=== PATIENT | male | born 1985 | race Caucasian/White ===

== ENCOUNTER 2019-08-02 08:13 | Outpatient (CLI) | payer BC, SELFPAY ==
[2019-08-02 09:04] LABS: Hemoglobin A1C 5.4 % (<5.7)
[2019-08-02 09:05] LABS: Blood Urea Nitrogen 15 mg/dL (9-20); Calcium 9.1 mg/dL (8.4-10.2); Carbon Dioxide 23 mmol/L (22-30); Chloride 103 mmol/L (98-107); Cholesterol 137 mg/dL (0-200); Estimated Glomerular Filt Rate > 60; Glucose 91 mg/dL (75-110); HDL Direct 35 mg/dL; Sodium 141 mmol/L (137-145); Triglycerides 115 mg/dL (<150)
[2019-08-02 09:16] LABS: LDL Cholesterol Direct 82 mg/dL
--- NOTE | 2019-08-06 23:57 | WPDPFTINT ---
PFT Interpretation PFT Interpretation: DOS: 08/02/2019 REQUESTING: Jett Barroso REASON FOR TESTING: cough PULMONARY FUNCTION TESTS Spirometry: FEV1 96%, normal. FVC 93%, normal. FEV1% is normal 80%. no bronchodilator was given. Lung volumes: Normal total lung capacity and residual volume. Diffusion: DLCO 86%. Flow volume loop: Normal. IMPRESSION: Normal spirometry, lung volumes, diffusion and flow volume loop without bronchodilator. Natalia Genao MD
== END 2019-08-02 08:14 | disposition home or self-care (01) ==
PROVIDERS: Visit Provider Family Medicine
DX: R05 Cough (principal); Z13.1 Encounter for screening for diabetes mellitus; Z13.220 Encounter for screening for lipoid disorders
CPT/HCPCS: 36415; 80048; 80061; 83036; 94375; 94726; 94729

== ENCOUNTER 2019-08-10 17:22 | Emergency (ER) | payer BC, SELFPAY ==
[2019-08-10 17:53] VITALS: BP 125/77; PULSE 72; RESP 18; TEMP 36.3; O2SAT 100
--- NOTE | 2019-08-10 19:20 | ED.DENTAL ---
HPI - Dental/Oral General Chief complaint: Dental/Oral <Han Rose PA-C - Last Filed: 08/10/19 19:33> Stated complaint: toothache <Han Rose PA-C - Last Filed: 08/10/19 19:33> Time Seen by Provider: 08/10/19 17:42 <Han Rose PA-C - Last Filed: 08/10/19 19:33> Source: patient <Han Rose PA-C - Last Filed: 08/10/19 19:33> Mode of arrival: ambulatory <Han Rose PA-C - Last Filed: 08/10/19 19:33> Limitations: no limitations <Han Rose PA-C - Last Filed: 08/10/19 19:33> History of Present Illness HPI Narrative: Patient is a 33-year-old male who presents with right lower dental pain that worsened after biting down on an object today injuring the tooth and has since had moderate aching pain worse with eating patient has been taking [id number] medications with some improvement patient denies any URI symptoms or any fever chills nausea vomiting. <Han Rose PA-C - Last Filed: 08/10/19 19:33> Related Data Allergies/adverse reactions: Allergies Allergy/AdvReac Type Severity Reaction Status Date / Time No Known Allergies Allergy Verified 08/10/19 18:05 <Han Rose PA-C - Last Filed: 08/10/19 19:33> Review of Systems Review of Systems: Narrative: CONSTITUTIONAL: Denies fever, chills, or sweats. EYES: Denies redness, or discharge. ENT: Denies rhinorrhea, congestion, sore throat RESPIRATORY: Denies cough GASTROINTESTINAL: Denies nausea, vomiting GENITOURINARY: Denies dysuria or hematuria. NEUROLOGIC: Denies headache PSYCHIATRIC: Denies anxiety or depression. <Han Rose PA-C - Last Filed: 08/10/19 19:33> [facility] Social History Social History: Social History Gender identity (if verbalized by the patient): Male <STEPHY Casper Last Filed: 08/10/19 19:33> Exam Narrative: Exam Narrative: GENERAL: Well-appearing, well-nourished, and in no acute distress. HEAD: Normocephalic, atraumatic. EYES: PERRLA and EOMI. ENT: Nares clear, no rhinorrhea or epistaxis. Mucous membranes moist. Oropharynx without tonsillar hypertrophy exudate or other lesions. Patient with dental decay of the right lower posterior molar there is no erythema fluctuance or swelling NECK: Supple. No adenopathy or masses. CHEST: Clear to auscultation. No respiratory distress. No wheezes rales or rhonchi HEART: Regular rate and rhythm. No murmur heard. EXTREMITIES: Normal range of motion. No edema. SKIN: Warm, dry, no rash. NEURO: No focal deficits. Alert and oriented x3. PSYCH: Normal mood and affect. <STEPHY Casper Last Filed: 08/10/19 19:33> Course Course Emergency Course: Patient in the room in no distress aware of case findings treatment plan and diagnosis agreeing to follow-up as directed <STEPHY Casper Last Filed: 08/10/19 19:33> Vital Signs Vital signs: Vital Signs Temperature 97.4 F L 08/10/19 17:53 Pulse Rate 72 08/10/19 17:53 Respiratory Rate 18 08/10/19 17:53 Blood Pressure 125/77 08/10/19 17:53 Pulse Oximetry 100 08/10/19 17:53 Temperature 97.4 F L 08/10/19 17:53 Pulse Rate 72 08/10/19 17:53 Respiratory Rate 18 08/10/19 17:53 Blood Pressure 125/77 08/10/19 17:53 Pulse Oximetry 100 08/10/19 17:53 <STEPHY Casper Last Filed: 08/10/19 19:33> Vital Signs Temperature 97.4 F L 08/10/19 17:53 Pulse Rate 72 08/10/19 17:53 Respiratory Rate 18 08/10/19 17:53 Blood Pressure 125/77 08/10/19 17:53 Pulse Oximetry 100 08/10/19 17:53 Temperature 97.4 F L 08/10/19 17:53 Pulse Rate 72 08/10/19 17:53 Respiratory Rate 18 08/10/19 17:53 Blood Pressure 125/77 08/10/19 17:53 Pulse Oximetry 100 08/10/19 17:53 <Karoline Zuñiga MD - Last Filed: 08/10/19 23:55> MDM - Dental/Oral MDM Narrative Medical decision making narrative: Hien
== END 2019-08-10 19:45 | disposition home or self-care (01) ==
PROVIDERS: Emergency Provider General Practice; PCP Family Medicine
DX: K08.89 Other specified disorders of teeth and supporting structures (principal)
CPT/HCPCS: 99283; A9270

== ENCOUNTER 2019-10-17 13:28 | Emergency (ER) | payer BC, SELFPAY ==
--- NOTE | ~2019-10-17 | XR_ITS ---
EXAMINATION: XR shoulder LT min 2V DATE: 10/17/2019 14:07 INDICATION: Left shoulder pain post straining injury TECHNIQUE: AP internally and externally rotated, AP oblique externally rotated and axillary views of the left shoulder were obtained. COMPARISON: None FINDINGS: Normal alignment. No fracture. Glenohumeral joint is normal. Acromioclavicular joint is normal. Soft tissues are unremarkable. IMPRESSION: Negative left shoulder radiographs. Reviewed, dictated and finalized at location A.
[2019-10-17 13:31] VITALS: BP 121/72; PULSE 63; RESP 16; TEMP 36.4; O2SAT 95
--- NOTE | 2019-10-17 13:45 | ED.UPPEXIN ---
HPI - Extremity Injury (Upper) General Chief Complaint: Extremity Injury, Upper Stated Complaint: left shoulder pain Time Seen by Provider: 10/17/19 13:41 Source: patient Mode of arrival: ambulatory Limitations: no limitations History of Present Illness HPI narrative: This is a 33 year old male that presents to the ER for left shoulder pain after overuse injury 3 days ago. Reports he was moving a lot of boxes the other day. Reports since he has had a constant pain in the left shoulder that he can reproduce with a certain movement. Denies chest pain, shortness of breath, numbness or weakness. Related Data Home Medications Medication Instructions Recorded Confirmed No Home Medications 10/17/19 10/17/19 Allergies Allergy/AdvReac Type Severity Reaction Status Date / Time No Known Allergies Allergy Verified 10/17/19 13:37 Review of Systems Review of Systems: Narrative: CONSTITUTIONAL: Denies fever CARDIOVASCULAR: Denies chest pain RESPIRATORY: Denies dyspnea. SKIN: Denies rash MUSCULOSKELETAL: Reports joint pain, and myalgia. NEUROLOGIC: Denies numbness, or weakness. All systems reviewed & are unremarkable except as noted in HPI and below PMFSH Social History Social History (Updated 10/17/19 @ 13:47 by Jo-Ann Ryan PA-C) Smoking status: Never smoker Substance use: never Gender identity (if verbalized by the patient): Male Exam Narrative: Exam Narrative: GENERAL: Well-appearing, well-nourished, and in no acute distress. HEAD: Normocephalic, atraumatic. EYES: EOMI. CHEST: Clear to auscultation. No respiratory distress. No wheezes rales or rhonchi HEART: Regular rate and rhythm. No murmur heard. Normal peripheral pulses. EXTREMITIES: Normal range of motion. No edema or obvious deformity. Normal sensation. Normal radial pulses SKIN: Warm, dry, no rash. NEURO: No focal deficits. Alert and oriented x3. PSYCH: Normal mood and affect Course Vital Signs Vital signs: Vital Signs Temperature 97.6 F 10/17/19 13:31 Pulse Rate 63 10/17/19 13:31 Respiratory Rate 16 10/17/19 13:31 Blood Pressure 121/72 10/17/19 13:31 Pulse Oximetry 95 10/17/19 13:31 Temperature 97.6 F 10/17/19 13:31 Pulse Rate 63 10/17/19 13:31 Respiratory Rate 16 10/17/19 13:31 Blood Pressure 121/72 10/17/19 13:31 Pulse Oximetry 95 10/17/19 13:31 MDM - Extremity Injury (Upper) MDM Narrative Medical decision making narrative: Patient presents the emergency department for left shoulder pain after an overuse injury 3 days ago. Left shoulder x-rays without acute changes. Patient will be given a sling as needed for comfort. He was encouraged to come out of the sling and do gentle range of motion exercises. He is to rest, ice and take [id number] pain medication as needed. He is to follow-up with primary care doctor. Is given warnings to return to the ER Imaging Data Radiologist's impression: ITS Impressions Shoulder X-Ray 10/17/19 14:19 IMPRESSION: Negative left shoulder radiographs. Discharge Plan Discharge Clinical Impression: Acute pain of left shoulder Patient Disposition: Home, Self-Care Condition: Stable Instructions: Shoulder Pain (ED) Additional Instructions: Return to the emergency department if you experience fever, chest pain, shortness of breath, redness and swelling of your arm, numbness, or any other symptoms that are concerning to you Sling as needed for comfort. Make sure to come out of the sling and do range of motion exercises so that you do not get stiff. Tylenol or ibuprofen as needed for pain. Ice to the area Follow-up with your primary care doctor Prescriptions: No Action No Home Medications RF: 0 Follow-up/Referrals: Chio,Alanna Ramos MD [Primary Care Provider] - 1 Week
[2019-10-17] MEDS: KETOROLAC (*BKC) 60 MG/2 ML VIAL IM (13:56)
== END 2019-10-17 15:04 | disposition home or self-care (01) ==
PROVIDERS: Emergency Provider Emergency Medicine; PCP Family Medicine
DX: M25.512 Pain in left shoulder (principal)
CPT/HCPCS: 73030; 96372; 99283; A4565; J1885

== ENCOUNTER 2019-12-26 18:50 | Emergency (ER) | payer BC, SELFPAY ==
[2019-12-26 18:51] VITALS: BP 138/98; PULSE 102; RESP 18; TEMP 36.6; O2SAT 98
--- NOTE | 2019-12-26 19:05 | ED.ALLEREA ---
HPI - Allergic Reaction General Chief complaint: Allergic Reaction Stated complaint: rash Time Seen by Provider: 12/26/19 19:04 Source: patient Mode of arrival: ambulatory Limitations: no limitations History of Present Illness HPI narrative: Patient is a 34-year-old male who presents for evaluation of hives and skin irritation. Patient reports a 1 day history of worsening rash to his arms, chest, back, and knees. Patient reports no thigh involvement. He denies any nausea, vomiting, diarrhea, shortness of breath or wheezing. No history of allergic reaction in the past. He has tried Benadryl without much improvement in his symptoms. Patient does report yesterday he was using a bleach/Lysol cleaning mix and did not have any gloves on. He states his hands have been itching and somewhat burning in nature, no peeling skin. He denies any puncture wounds to the hands. No blistering. Other household contacts are well without similar rash. No fever, chills, cough, congestion or sore throat. Related Data Allergies Allergy/AdvReac Type Severity Reaction Status Date / Time No Known Allergies Allergy Verified 12/26/19 19:12 Review of Systems Review of Systems: Narrative: CONSTITUTIONAL: Denies fever CARDIOVASCULAR: Denies chest pain RESPIRATORY: Denies cough or dyspnea. GASTROINTESTINAL: Denies abdominal pain SKIN: Reports rash to arms, chest, back, lower legs MUSCULOSKELETAL: Denies back pain NEUROLOGIC: Denies headache PMFSH Past Medical History Medical History (Updated 12/26/19 @ 19:35 by Priscilla Cagle MD) No pertinent past medical history Surgical History Surgical History (Updated 12/26/19 @ 19:31 by Priscilla Cagle MD) No pertinent past surgical history Social History Social History Smoking status: Never smoker Substance use: never Gender identity (if verbalized by the patient): Male Exam Narrative: Exam Narrative: GENERAL: Awake, alert, conversant HEAD: Normocephalic, atraumatic. EYES: PERRLA and EOMI. ENT: Nares clear, no rhinorrhea or epistaxis. Mucous membranes moist. No mucosal liu. NECK: Supple. CHEST: No respiratory distress, breathing even and non labored, no wheezing HEART: Regular rate, sinus rhythm ABDOMEN:Non distended, non tender EXTREMITIES: Normal range of motion. Mild edema to the bilateral hands. Compartments are soft in the forearms. Radial pulses 2+ bilaterally. No desquamation of the extremities. No blistering. SKIN: Warm, dry, macular rash to the chest, back, lower extremities, no blistering, no ecchymoses, no petechiae, positive blanching with pressure, no warmth, no streaking erythema NEURO:No focal deficits. Alert and oriented x3 Course Vital Signs Vital signs: Vital Signs Temperature 36.6 C 12/26/19 18:51 Pulse Rate 102 H 12/26/19 18:51 Respiratory Rate 18 12/26/19 18:51 Blood Pressure 138/98 H 12/26/19 18:51 Pulse Oximetry 98 12/26/19 18:51 Temperature 36.6 C 12/26/19 18:51 Pulse Rate 102 H 12/26/19 18:51 Respiratory Rate 18 12/26/19 18:51 Blood Pressure 138/98 H 12/26/19 18:51 Pulse Oximetry 98 12/26/19 18:51 MDM - Allergic Reaction MDM Narrative Medical decision making narrative: Patient presented following exposure to a bleach/Lysol component now with hand burning, rash to chest, upper extremities, lower extremities. Patient without any airway involvement, he states he was using some household acid cleaner. At this point, this does not seem entirely consistent with a contact dermatitis or true allergic reaction. Patient does not have urticaria, no to system involvement to suggest anaphylaxis. Patient is having no respiratory symptoms, otherwise considered vasculitis first inflammatory reaction, patient without any infectious type symptoms at this point, and the rash seems more inflammatory in nature. Given the itching, edematous sensation in the hands, and the patient's rec
[2019-12-26] MEDS: predniSONE 20 MG TABLET 60 MG PO (19:30)
[2019-12-26] MEDS: FAMOTIDINE 20 MG TABLET PO (19:30)
== END 2019-12-26 19:44 | disposition home or self-care (01) ==
PROVIDERS: Emergency Provider Emergency Medicine; PCP Family Medicine
DX: T65.891A Toxic effect of other specified substances, accidental (unintentional), initial encounter (principal); T21.41XA Corrosion of unspecified degree of chest wall, initial encounter; T21.44XA Corrosion of unspecified degree of lower back, initial encounter; T24.402A Corrosion of unspecified degree of unspecified site of left lower limb, except ankle and foot, initial encounter; T24.401A Corrosion of unspecified degree of unspecified site of right lower limb, except ankle and foot, initial encounter; T23.402A Corrosion of unspecified degree of left hand, unspecified site, initial encounter; T23.401A Corrosion of unspecified degree of right hand, unspecified site, initial encounter; T32.0 Corrosions involving less than 10% of body surface
CPT/HCPCS: 99283; A9270; J7512

== ENCOUNTER 2020-06-28 14:12 | Emergency (ER) | payer BC, SELFPAY ==
[2020-06-28 14:20] VITALS: BP 133/80; PULSE 99; RESP 18; TEMP 36.3; O2SAT 94
--- NOTE | 2020-06-28 14:41 | ED.DENTAL ---
HPI - Dental/Oral General Chief complaint: Dental/Oral Stated complaint: toothache Time Seen by Provider: 06/28/20 14:28 Source: patient Mode of arrival: ambulatory Limitations: no limitations History of Present Illness HPI Narrative: Patient is a 34-year-old male who presents complaining of left upper dental pain x2 to 3 days. He reports that he has a cavity and will be following up with his dentist over the next week. Patient reports increased pain over the past day. He denies all other complaints. He reports taking [id number] medications for pain with limited relief. MD Complaint: tooth pain Related Data Allergies Allergy/AdvReac Type Severity Reaction Status Date / Time No Known Allergies Allergy Verified 06/28/20 14:20 Review of Systems Review of Systems: Narrative: CONSTITUTIONAL: Denies fever, chills, or sweats. EYES: Denies visual changes, redness, or discharge. ENT: Denies rhinorrhea, congestion, sore throat, or otalgia. Left upper dental pain CARDIOVASCULAR: Denies chest pain, palpitations, or edema. RESPIRATORY: Denies cough or dyspnea. GASTROINTESTINAL: Denies abdominal pain, nausea, vomiting, or diarrhea. GENITOURINARY: Denies dysuria or hematuria. SKIN: Denies rash or itching. MUSCULOSKELETAL: Denies back pain, joint pain, or myalgia. NEUROLOGIC: Denies headache, numbness, dizziness, or weakness. PSYCHIATRIC: Denies anxiety or depression. PMFSH Past Medical History Medical History No pertinent past medical history Surgical History Surgical History No pertinent past surgical history Family History Family History (Updated 06/28/20 @ 14:43 by CORNEL Rg) Other Diabetes mellitus Social History Social History (Updated 06/28/20 @ 14:42 by CORNEL Rg) Smoking status: Never smoker Alcohol intake: never Substance use: never Gender identity (if verbalized by the patient): Male Exam Narrative: Exam Narrative: GENERAL: Well-appearing, well-nourished, and in no acute distress. HEAD: Normocephalic, atraumatic. EYES: No redness or drainage. ENT: Mucous membranes pink and moist. Multiple dental caries CHEST: No respiratory distress. HEART: Regular rate and rhythm. EXTREMITIES: Normal range of motion. NEURO: No focal deficits. Alert and oriented x3. Gait steady. PSYCH: Normal affect. No signs of depression or anxiety. Course Vital Signs Vital signs: Vital Signs Temperature 36.3 C L 06/28/20 14:20 Pulse Rate 99 06/28/20 14:20 Respiratory Rate 18 06/28/20 14:20 Blood Pressure 133/80 06/28/20 14:20 Pulse Oximetry 94 06/28/20 14:20 Temperature 36.3 C L 06/28/20 14:20 Pulse Rate 99 06/28/20 14:20 Respiratory Rate 18 06/28/20 14:20 Blood Pressure 133/80 06/28/20 14:20 Pulse Oximetry 94 06/28/20 14:20 Reviewed. Patient has been instructed to follow-up with his PCP regarding his blood pressure. MDM - Dental/Oral MDM Narrative Medical decision making narrative: Patient has poor dentition, multiple dental caries noted. Patient be started on antibiotics at this time. Pain medication to be given as well, patient is aware of the need to follow-up with dentist as soon as possible. Patient is stable for discharge home with outpatient follow-up as needed. Differential Diagnosis Differential diagnosis: Likely dental caries, toothache, dental abscess and fracture of tooth Medical Records Attestation: I reviewed the patient's medical records. Critical Care Time Critical Care Time Critical Care Time: No Discharge Plan Discharge Clinical Impression: Toothache, Dental caries Patient Disposition: Home, Self-Care Condition: Stable Instructions: Antibiotic Form Additional Instructions: Take medication as directed. You may take Tylenol or ibuprofen for pain. Follow-up with your dentist as soon as possible for
[2020-06-28] MEDS: KETOROLAC (*BKC) 60 MG/2 ML VIAL IM (15:07)
[2020-06-28 15:10] VITALS: BP 128/88; PULSE 80; RESP 20; O2SAT 99
== END 2020-06-28 15:13 | disposition home or self-care (01) ==
PROVIDERS: Emergency Provider Nurse Practitioner; PCP Family Medicine
DX: K02.9 Dental caries, unspecified (principal)
CPT/HCPCS: 96372; 99283; J1885

== ENCOUNTER 2020-10-04 18:59 | Emergency (ER) | payer BC, MEDICAID, SELFPAY ==
[2020-10-04 19:25] VITALS: BP 113/71; PULSE 76; RESP 20; TEMP 36.7; O2SAT 98
--- NOTE | 2020-10-04 21:17 | ED.BACK ---
HPI - Back Pain/Injury General Chief Complaint: Back Pain/Injury Stated Complaint: BACK PAIN Time Seen by Provider: 10/04/20 21:07 Source: patient Mode of arrival: ambulatory Limitations: no limitations History of Present Illness HPI Narrative: Patient is a 34-year-old male complaining of right lower back pain, 9 out of 10, dull, worse with movement, started after lifting a box at work and when the box shifted he turned the wrong way to catch the box and that is when the pain started, which happened 5 days ago. Patient denies any fall. Patient denies any weakness or numbness. Patient denies any incontinence. Patient denies any chest pain or shortness of breath. Related Data Allergies Allergy/AdvReac Type Severity Reaction Status Date / Time No Known Allergies Allergy Verified 06/28/20 14:20 Review of Systems Review of Systems: All systems reviewed & are unremarkable except as noted in HPI and below Constitutional: Constitutional: Denies body ache(s), Denies chills, Denies excessive sweating, Denies fatigue, Denies fever(s), Denies headache(s), Denies lethargy, Denies malaise, Denies weakness and Denies weight loss Eyes: Eyes: Denies blurry vision, Denies change in vision and Denies loss of vision ENT: Denies dizziness, Denies ear discharge, Denies headache(s), Denies lip swelling, Denies epistaxis, Denies nasal congestion, Denies neck pain, Denies throat swelling and Denies tongue swelling Cardiovascular: Cardiovascular: Denies chest pain, Denies chest pain at rest, Denies chest pain with activity, Denies diaphoresis, Denies rapid heart rate, Denies edema, Denies irregular heart rhythm, Denies lightheadedness, Denies palpitations, Denies dyspnea and Denies dyspnea on exertion Respiratory: Respiratory: Denies chest congestion, Denies cough, Denies hemoptysis, Denies dyspnea and Denies dyspnea on exertion Gastrointestinal: Gastrointestinal: Denies abdominal pain, Denies melena, Denies hematochezia, Denies diarrhea, Denies nausea, Denies vomiting and Denies hematemesis Musculoskeletal: Musculoskeletal: Denies abnormal gait, Denies deformity, Denies joint swelling, Denies limited range of motion, Denies neck pain and Denies numbness Neurologic: Denies Abnormal speech present, Denies abnormal gait, Denies confusion, Denies dizziness, Denies headache(s), Denies focal weakness, Denies loss of vision, Denies numbness, Denies Other visual disturbances, Denies Sensory deficit (Neuro) and Denies weakness Psychiatric: Psychiatric: Denies confusion, Denies depression, Denies auditory hallucinations, Denies homicidal ideation and Denies suicidal ideation Endocrine: Endocrine: Denies cold intolerance, Denies excessive sweating, Denies fatigue, Denies heat intolerance and Denies palpitations Hematologic/Lymphatic: Hematologic/Lymphatic: Denies easy bleeding and Denies easy bruising Allergic/Immunologic: Allergic/Immunologic: Denies lip swelling, Denies throat swelling and Denies tongue swelling PMFSH Past Medical History Medical History No pertinent past medical history Surgical History Surgical History No pertinent past surgical history Family History Family History Other Diabetes mellitus Social History Social History Smoking status: Never smoker Alcohol intake: never Substance use: never Gender identity (if verbalized by the patient): Male Exam Const: General: alert Orientation/consciousness: patient oriented x3 Limitations: no limitations Other: Mild distress due to pain HENMT: Head: normal to inspection, normocephalic and atraumatic Ears: hearing grossly normal bilaterally, TM normal on the right and TM normal on the left General nose exam: Normal external nose present, Normal nares present and
[2020-10-04] MEDS: HYDROcodone/acetaminophen (*CRX) 5-325 MG TABLET 1 TAB PO (21:56)
[2020-10-04] MEDS: KETOROLAC 30 MG/ML VIAL (*BKC) IM (21:57)
[2020-10-04] MEDS: diazePAM INJ (*CRX) 10 MG/2 ML SYRINGE 5 MG IM (22:01)
== END 2020-10-04 22:10 | disposition home or self-care (01) ==
PROVIDERS: Emergency Provider Emergency Medicine; PCP Family Medicine
DX: S29.019A Strain of muscle and tendon of unspecified wall of thorax, initial encounter (principal); S39.012A Strain of muscle, fascia and tendon of lower back, initial encounter; X50.9XXA Other and unspecified overexertion or strenuous movements or postures, initial encounter
CPT/HCPCS: 96372; 99284; A9270; J1885; J3360

== ENCOUNTER 2020-10-19 15:05 | Outpatient (CLI) | payer BC, MEDICAID, SELFPAY | END 2020-10-19 15:06 | disposition home or self-care (01) | PROVIDERS: PCP Family Medicine | DX: Z13.79 Encounter for other screening for genetic and chromosomal anomalies (principal) | CPT/HCPCS: 81479 ==

== ENCOUNTER 2021-01-20 19:35 | Inpatient (IN) | payer BC, MEDICAID, SELFPAY ==
--- NOTE | ~2021-01-20 | XR_ITS ---
EXAMINATION: XR chest 1V portable DATE: 01/27/2021 05:48 INDICATION: Respiratory failure TECHNIQUE: frontal view of the chest was obtained. COMPARISON: Chest radiograph dated 01/26/2021 FINDINGS: Endotracheal tube tip 2.9 cm above the rayna. Nasogastric tube extends below the left hemidiaphragm with distal tip collimated off the study. No significant interval change in airspace opacity medial right upper lung zone and at the left lower lung zone. No pneumothorax or definitive pleural effusion. The cardiomediastinal silhouette is roman l. IMPRESSION: 1. No significant interval change in mild opacities in the right upper and left lower lung which zone s could represent atelectasis and/or pneumonia. Reviewed, dictated and finalized at location A. IMPRESSION: 1. No significant interval change in mild opacities in the right upper and left lower lung which zones could represent atelectasis and/or pneumonia.
--- NOTE | ~2021-01-20 | XR_ITS ---
EXAMINATION: XR chest 1V portable DATE: 01/23/2021 06:21 INDICATION: Respiratory failure TECHNIQUE: frontal view of the chest was obtained. COMPARISON: Chest radiograph dated 01/22/2021 FINDINGS: Endotracheal tube tip 1.7 cm above the rayna. Nasogastric tube extends below the left hemidiaphragm with distal tip collimated off the study. Small lung volumes. Unchanged linear discoid atelectasis/scarring at the left lower lung zone. Additi onal unchanged airspace opacities in the right upper lung zone. No pleural effusion or pneumothorax. The cardiomediastinal silhouette is normal. IMPRESSION: 1. Small lung volumes with unchanged opacities in the right upper lung and left lower lung zones whic h could represent atelectasis and/or pneumonia. Reviewed, dictated and finalized at location A. IMPRESSION: 1. Small lung volumes with unchanged opacities in the right upper lung and left lower lung zones which could represent atelectasis and/or pneumonia.
--- NOTE | ~2021-01-20 | CT_ITS ---
EXAMINATION: CT soft tissue neck w con DATE: 01/20/2021 22:09 INDICATION: Neck and throat pain TECHNIQUE: Computed tomography (CT) of the neck was performed with 75 cc of Omnipaque 350 intravenous contrast. The dose-length product (DLP) was 706.88 mGy-cm. Automated exposure control and iterative reconstruction technique were employed. COMPARISON: None FINDINGS: There is soft tissue swelling to the left of midline in the hypopharynx which exerts mass e ffect on the airway. No discrete abscess is identified. There is also asymmetric density in the oroph arynx to the left of midline which is not as prominent as in the hypopharynx. Mildly reactive lymph n odes are noted in the left neck. The visualized lung apices are unremarkable. IMPRESSION: 1. Asymmetric soft tissue density in the hypopharynx and to a lesser degree in the nasopharynx to the left of midline which could reflect early phlegmon. No discrete abscess identified. These findings w ere discussed with SHAYNA Velázquez in the Emergency Department at 2227 hours on 01/20/2021. Reviewed, dictated and finalized at location A. IMPRESSION: 1. Asymmetric soft tissue density in the hypopharynx and to a lesser degree in the nasopharynx to the left of midline which could reflect early phlegmon. No d iscrete abscess identified. These findings were discussed with ISABEL Velázquez in the Emergency Department at 2227 hours on 01/20/2021.
--- NOTE | ~2021-01-20 | CT_ITS ---
EXAMINATION: CT soft tissue neck chest wo DATE: 01/24/2021 09:52 INDICATION: Neck abscess, increased hypoxia TECHNIQUE: Computed tomography (CT) of the neck and chest was performed without intravenous contrast. The dose-length product (DLP) was 1040.65 mGy-cm. Automated exposure control and iterative reconstru ction technique were employed. COMPARISON: 01/22/2021 FINDINGS: NECK: There has been interval incision and drainage of the previously described mandibular and pharyn geal abscesses. Endotracheal tube is in expected position. There appears to be some residual abscess in the left floor the mouth although assessment is difficult without intravenous contrast. Polyps or mucous retention cysts are noted in the maxillary sinuses. CHEST: There are small pleural effusions. Dependent airspace opacities are present in the lungs. Ther e is no pneumothorax. The nasogastric tube is followed as far as the stomach. The heart size is roman l. There are no pathologically enlarged thoracic lymph nodes. IMPRESSION: 1. Possible residual abscess in the left floor the mouth, assessment difficult without intravenous co ntrast. 2. Dependent airspace opacities of the lungs, consistent with atelectasis versus pneumonia. 3. Small pleural effusions. Reviewed, dictated and finalized at location A. IMPRESSION: 1. Possible residual abscess in the left floor the mouth, assessment difficult without intravenous contrast. 2. Dependent airspace opacities of the lungs, consistent with atelectasis versu s pneumonia. 3. Small pleural effusions.
--- NOTE | ~2021-01-20 | XR_ITS ---
EXAMINATION: XR chest 1V portable DATE: 01/28/2021 08:51 INDICATION: Respiratory failure TECHNIQUE: frontal view of the chest was obtained. COMPARISON: Chest radiograph dated 01/27/2021 FINDINGS: Endotracheal tube tip 3.5 cm above the rayna. Nasogastric tube extends below the left hemidiaphragm with distal tip collimated off the study. Oblique and discoid atelectasis/scarring at the medial left lower lung zone. Lungs are otherwise sabine r with no focal airspace opacities, pulmonary edema, pleural effusion or pneumothorax. The cardiomedi astinal silhouette is normal. IMPRESSION: 1. Unchanged band of discoid atelectasis/scarring at the left lower lung zone. Reviewed, dictated and finalized at location A.
--- NOTE | ~2021-01-20 | XR_ITS ---
EXAMINATION: XR abdomen NG/feed tube insert DATE: 01/22/2021 17:58 INDICATION: Nasogastric tube placement TECHNIQUE: A supine view of the abdomen and lower chest was obtained for evaluation of feeding tube placement. COMPARISON: None. FINDINGS: Is a gastric tube tip in proximal side port in the body of the stomach. Moderate amount of gas in the transverse colon. No dilated loops of gas-filled small bowel to suggest obstruction. Airspace opacit ies with air bronchograms in the left lower lung zone which could represent atelectasis and/or pneumo david. Endotracheal tube tip 10 mm above the rayna. Heart size is normal. IMPRESSION: 1. Nasogastric tube in the stomach. 2. Opacities with air bronchograms in the left lower lung zone which could represent atelectasis and/ or pneumonia. Reviewed, dictated and finalized at location A. IMPRESSION: 1. Nasogastric tube in the stomach. 2. Opacities with air bronchograms in the left lower lung zone which could repr esent atelectasis and/or pneumonia.
--- NOTE | ~2021-01-20 | XR_ITS ---
EXAMINATION: XR chest 1V portable DATE: 01/26/2021 05:43 INDICATION: Respiratory failure TECHNIQUE: frontal view of the chest was obtained. COMPARISON: Chest radiograph dated 01/25/2021 FINDINGS: Endotracheal tube tip 2.5 cm above the rayna. There is a gastric tube with proximal side-port in the body of the stomach and distal tip extending below the inferior margin of the [id number]. Small lung volumes. Opacities with air bronchograms in the bilateral infrahilar regions which could r epresent atelectasis or pneumonia. No pulmonary edema, pleural effusion or pneumothorax. The cardiome diastinal silhouette is within normal limits accounting for AP technique and the small lung volumes. Visualized bones and soft tissues are unremarkable. IMPRESSION: 1. Decreased lung volumes with persistent opacities with air bronchograms at the lateral infrahilar r egions and favor atelectasis over pneumonia. Reviewed, dictated and finalized at location A. IMPRESSION: 1. Decreased lung volumes with persistent opacities with air bronchograms at th e lateral infrahilar regions and favor atelectasis over pneumonia.
--- NOTE | ~2021-01-20 | XR_ITS ---
EXAMINATION: XR chest 1V portable DATE: 01/25/2021 05:59 INDICATION: Respiratory failure TECHNIQUE: frontal view of the chest was obtained. COMPARISON: Chest radiograph dated 01/24/2021 FINDINGS: Endotracheal tube tip 3.9 cm above the rayna. Nasogastric tube extends below the left hemidiaphragm with distal tip collimated off the study. Mild opacities in the bilateral lower lung zones which could represent atelectasis or less likely pne umonia. No pulmonary edema, pneumothorax or evident pleural effusion. The cardiomediastinal silhouett e is normal. IMPRESSION: 1. Mild bibasilar opacities and favor atelectasis over pneumonia. Reviewed, dictated and finalized at location A.
--- NOTE | ~2021-01-20 | XR_ITS ---
XR chest 1V portable DATE: 01/26/2021 10:17 INDICATION: Respiratory failure TECHNIQUE: Portable AP chest on 01/26/2021 at 1010 hours COMPARISON: None FINDINGS: ET tube in satisfactory position 2.9 cm above rayna. NG tube is noted in the stomach. No central lines are noted. Heart size appears within normal range. There is patchy infiltrate and/atelectasis in the left lower lobe with air bronchograms in the retroc ardiac area. The lungs otherwise appear essentially clear. No pulmonary vascular congestion or pleura l effusion or pneumothorax is detected. IMPRESSION: Patchy left lower lobe infiltrate and/atelectasis Endotracheal and NG tubes in satisfactory position Reviewed, dictated and finalized at location B.
--- NOTE | ~2021-01-20 | CT_ITS ---
EXAMINATION: CT soft tissue neck w con DATE: 01/25/2021 09:58 INDICATION: Left neck abscess TECHNIQUE: Computed tomography (CT) of the neck was performed with 75 mL Omnipaque-350 intravenous co ntrast. Automated exposure control and iterative reconstruction technique were employed. The dose-lionel gth product was 564.17 mGy-cm. COMPARISON: 01/24/2021 and 01/22/2021 FINDINGS: Again seen is a rim-enhancing abscess extending inferiorly from medial margin of the body of the hilton ible into the left mylohyoid muscle. The abscess currently measures 2.1 x 1.4 x 2.8 cm which appears decreased in size since the CT performed on 01/23/2021 prior to the incision and drainage at which twin e it measured 2.8 x 1.6 x 3.5 cm. The abscess does however appear slightly larger than on the CT perf ormed following the incision and drainage although assessment on that study was more limited with the absence of intravenous contrast. The abscess likely originates from the periapical erosion at the po sterior most left mandibular molar which extends through the medial cortex of the mandible. There wer e dental caries at the posterior most mandibular molars on both the left and the right. There is persistent soft tissue swelling at the left side of the oropharynx surrounding the abscess a nd which extends inferiorly to the vallecula. This continues to narrow the airway surrounding an endo tracheal tube and nasogastric tube, the former terminating 4.2 cm above the rayna. The previously se en swelling along the left aryepiglottic fold appears to have decreased as has prior soft tissue swel ling at the soft palate and uvula.. No significant swelling of the epiglottis proper. No prevertebral soft tissue swelling. Persistent mild level 2 jugular chain likely reactive lymphadenopathy, left slightly more pronounced than right. Thyroid gland is normal. Parotid and submandibular glands are normal. The arteries of the neck appear unremarkable with a dominant left vertebral artery. The veins appear normal but are insu fficiently opacified with contrast to assess for patency. Mild mucosal thickening in the right ethmoi d sinus and mucous retention cysts in the left sphenoid and bilateral maxillary sinuses. Bones are un remarkable aside from the previous noted periapical abscess at the left mandible. IMPRESSION: 1. Residual 2.1 x 1.4 x 2.8 cm abscess tracking within the left mylohyoid muscle which appears to marianne ginate at a periapical abscess at the posterior most left mandibular molar. Abscess is decreased sinc e the CT prior to a reported incision and drainage but which does appear slightly increased since the initial postoperative study. 2. Persistent surrounding soft tissue edema at the left side of the oropharynx, slightly improved at the soft palate, uvula and left aryepiglottic fold but which continues to narrow the airway surroundi ng an endotracheal tube and nasogastric tube. Reviewed, dictated and finalized at location A. IMPRESSION: 1. Residual 2.1 x 1.4 x 2.8 cm abscess tracking within the left mylohyoid muscl e which appears to originate at a periapical abscess at the posterior most left mandibular molar. Abscess is decreased since the CT prior to a reported incisi on and drainage but which does appear slightly increased since the initial post operative study. 2. Persistent surrounding soft tissue edema at the left side of the oropharynx, slightly improved at the soft palate, uvula and left aryepiglottic fold but wh ich continues to narrow the airway surrounding an endotracheal tube and nasogas tric tube.
--- NOTE | ~2021-01-20 | CT_ITS ---
EXAMINATION: CT soft tissue neck w con EXAM DATE: 01/22/2021 10:33 INDICATION: Worsening edema to neck. TECHNIQUE: Spiral CT of the neck was performed following intravenous injection of 75 mL Omnipaque 350 . Axial, coronal and sagittal images were reviewed. The dose-length product (DLP) for this examinat ion was 629.35 mGy-cm. The exposure was tailored according to patient size (auto mA exposure control ), and iterative reconstruction (ASIR) was used as additional dose reduction technique. Comparison is made to prior examination from 07/23/2020. FINDINGS: Patient has cavities of the posterior most mandibular molars bilaterally. Suspect developme nt of early thick-walled centrally necrotic abscess along the inner surface of the left mandibular polly dy, region measuring about 1.5 x 2.8 cm in axial dimensions extending medial to the left likely odont ogenic in origin. Submandibular gland and through the floor of the mouth, about 3.5 cm in craniocauda l dimension. There is progression of edema, swelling, phlegmonous appearance to the left palatine obtained tonsil, the uvula, with edema also extending inferiorly to the left piriform sinus and vallecula which appea r effaced and is causing airway narrowing. Mild edema in the left parapharyngeal fat. No prevertebral abscess or jugular venous thrombosis. Parotid and submandibular glands are unremarkable. Internal ju gular vein lymphadenopathy or pronounced on the left, reactive. IMPRESSION: 1. Developing abscess along inner surface left mandibular body through the floor of the mouth, proba brendon odontogenic origin. 2. Worsening phlegmonous appearance to left-sided pontine tonsils with edema effacing the piriform s inus and vallecula, and probably edema of the left side of the epiglottis. This is causing moderately narrowed airway of the pharynx. Reviewed, dictated and finalized at location B. IMPRESSION: 1. Developing abscess along inner surface left mandibular body through the asia or of the mouth, probably odontogenic origin. 2. Worsening phlegmonous appearance to left-sided pontine tonsils with edema e ffacing the piriform sinus and vallecula, and probably edema of the left side o f the epiglottis. This is causing moderately narrowed airway of the pharynx.
--- NOTE | ~2021-01-20 | XR_ITS ---
EXAMINATION: XR chest ET placement INDICATION: Respiratory failure TECHNIQUE: Portable AP chest at 1439 hours COMPARISON: 08/13/2018 FINDINGS: The endotracheal tube is 1.4 cm above the rayna. There are minimal opacities of the right upper lobe and the left lung base. No pleural effusion or pneumothorax is identified. The cardiomedia stinal silhouette is normal. IMPRESSION: 1. Endotracheal tube 1.5 cm above the rayna. 2. Airspace opacities of the left lung base and right upper lobe, consistent with atelectasis versus pneumonia. Reviewed, dictated and finalized at location A. IMPRESSION: 1. Endotracheal tube 1.5 cm above the rayna. 2. Airspace opacities of the left lung base and right upper lobe, consistent wi th atelectasis versus pneumonia.
--- NOTE | ~2021-01-20 | XR_ITS ---
EXAMINATION: XR chest 1V portable DATE: 01/24/2021 05:51 INDICATION: Respiratory failure TECHNIQUE: frontal view of the chest was obtained. COMPARISON: Chest radiograph dated 01/23/21 FINDINGS: Endotracheal tube tip 3.2 cm above the rayna. Nasogastric tube extends below the left hemidiaphragm with distal tip collimated off the study. Small lung volumes. Bandlike opacity left lower lung zone and favor atelectasis over pneumonia. No pu lmonary edema, pleural effusion or pneumothorax. The cardiomediastinal silhouette is normal. IMPRESSION: 1. Small lung volumes with discoid atelectasis at the left lower lung zone. Reviewed, dictated and finalized at location A.
[2021-01-20 19:43] VITALS: BP 129/70; PULSE 121; RESP 18; TEMP 36.8; O2SAT 96
--- NOTE | 2021-01-20 20:46 | ED.GENADULT ---
HPI - General Adult General Chief complaint: Dental/Oral <Han Rose PA-C - Last Filed: 01/20/21 22:38> Stated complaint: infected tooth, fever <Han Rose PA-C - Last Filed: 01/20/21 22:38> Time Seen by Provider: 01/20/21 20:21 <Han Rose PA-C - Last Filed: 01/20/21 22:38> Source: patient and RN notes reviewed <Han Rose PA-C - Last Filed: 01/20/21 22:38> Mode of arrival: ambulatory <Han Rose PA-C - Last Filed: 01/20/21 22:38> Limitations: no limitations <Han Rose PA-C - Last Filed: 01/20/21 22:38> History of Present Illness HPI narrative: Patient is a 35-year-old male who presents with sore throat to the left side of the throat worse with swallowing is been present for the last 2 days denies fever chills URI symptoms or other complaints patient has not taken anything for his symptoms today presents in an uncomfortable state notes that he is having drooling due to the pain <Han Rose PA-C - Last Filed: 01/20/21 22:38> Related Data Allergies/adverse reactions: Allergies Allergy/AdvReac Type Severity Reaction Status Date / Time No Known Allergies Allergy Verified 01/20/21 20:21 <Han Rose PA-C - Last Filed: 01/20/21 22:38> Review of Systems Review of Systems: All systems reviewed & are unremarkable except as noted in HPI and below <Han Rose PA-C - Last Filed: 01/20/21 22:38> [facility] Past Medical History Medical History: Medical History No pertinent past medical history <STEPHY Casper Last Filed: 01/20/21 22:38> Surgical History Surgical History: Surgical History No pertinent past surgical history <STEPHY Casper Last Filed: 01/20/21 22:38> Family History Family History: Family History Other Diabetes mellitus <Han Rose PA-C - Last Filed: 01/20/21 22:38> Social History Social History: Social History Smoking status: Never smoker Alcohol intake: never Substance use: never Gender identity (if verbalized by the patient): Male <Han Rose PA-C - Last Filed: 01/20/21 22:38> Exam Narrative: GENERAL: Well-appearing, well-nourished, uncomfortable and in no acute distress. HEAD: Normocephalic, atraumatic. EYES: PERRLA and EOMI. ENT: Nares clear, no rhinorrhea or epistaxis. Mucous membranes moist. Oropharynx without tonsillar hypertrophy exudate or other lesions. No obvious dental lesions in the oropharynx there is no obvious swelling in the posterior oropharynx uvula is midline. Floor the mouth is soft NECK: Supple. No adenopathy or masses. CHEST: Clear to auscultation. No respiratory distress. No wheezes rales or rhonchi HEART: Regular rate and rhythm. No murmur heard. EXTREMITIES: Normal range of motion. No edema. SKIN: Warm, dry, no rash. NEURO: No focal deficits. Alert and oriented x3. PSYCH: Normal mood and affect. <Han Rose PA-C - Last Filed: 01/20/21 22:38> Course Course Emergency Course: Patient in the room no distress will be brought into the hospital evaluated by ENT in the morning discussion was made with ENT will continue the recommendations of the ENT and also will be managed and evaluated by the hospitalist service. Patient is afebrile nontoxic-appearing had improvement with medications to include fluids steroids and antibiotics <Han Rose PA-C - Last Filed: 01/20/21 22:38> BOTTLING ATTENDANT/PA Physician Supervision For this encounter, I have reviewed the PA documentation, treatment plan and medical decision making: And I have had [id number] time with the patient. Discussed with patient results work-up discussed need for admission further evaluation by ENT all questions
[2021-01-20 21:17] LABS: Basophils Absolute Auto 0.1 K/mm3 (0.0-0.1); Basophils Percent Auto 0.3 % (0.2-1.2); Eosinophils Percent Auto 0.1 % (0-4.4); Hematocrit 46.8 % (42.0-52.0); Hemoglobin 15.8 g/dL (14.0-18.0); Immature Granulocyte Absolute 0.08 K/mm3 (0.00-0.031); Immature Granulocyte Percent A 0.4 % (0-0.5); Lymphocytes Absolute Auto 1.48 K/mm3 (0.9-3.2); Lymphocytes Percent Auto 7.8 % (18.3-44.2); Mean Corpuscular HGB Conc 33.8 g/dl (32-36); Mean Corpuscular Hemoglobin 28.6 pg (26-34); Mean Corpuscular Volume 84.8 fl (80-100); Mean Platelet Volume 9.5 fl (7.4-10.4); Monocytes Absolute Auto 1.9 K/mm3 (0.1-0.6); Monocytes Percent Auto 10.1 % (2.6-8.5); Neutrophils Absolute Auto 15.4 K/mm3 (1.3-6.7); Neutrophils Percent Auto 81.3 % (45.5-73.1); Platelet Count Result 389 k/mm3 (150-375); Red Blood Count 5.52 M/mm3 (4.6-6.20); Red Cell Distribution Width 13.2 % (11.5-14.5)
[2021-01-20] MEDS: DEXAMETHASONE SOD PHOS INJ 4 MG/ML VIAL 10 MG IV PUSH (21:18)
[2021-01-20 21:19] VITALS: TEMP 36.8
[2021-01-20] MEDS: IBUPROFEN IV 800 MG/200 ML 800 MG/200 ML BAG 400 MG IVPB (21:19)
[2021-01-20] MEDS: SODIUM CHLORIDE 0.9% IV 1,000 ML 999 ML IV CONT (21:20)
[2021-01-20 21:36] LABS: Anion Gap 14 mmol/L (8-16); Blood Urea Nitrogen 11 mg/dL (9-20); Calcium 9.7 mg/dL (8.4-10.2); Carbon Dioxide 23 mmol/L (22-30); Chloride 99 mmol/L (98-107); Estimated CRCL calculation 98 ml/min; Estimated Glomerular Filt Rate > 60; Glucose 109 mg/dL (65-110); Potassium 3.5 mmol/L (3.4-5.0); Sodium 136 mmol/L (137-145)
[2021-01-20 21:47] LABS: CRP 21.5 mg/dL (<1.0)
[2021-01-20] MEDS: CLINDAMYCIN 900 MG/D5W 50 ML 900 MG/50 ML PIGGYBACK 50 MG IVPB (22:57)
[2021-01-20 23:11] VITALS: BP 125/82; PULSE 99; RESP 15; O2SAT 95
[2021-01-21] VITALS (7 sets, daily range): BP systolic 112–132; BP diastolic 62–83; PULSE 61–89; RESP 18–20; TEMP 36.1–36.6; O2SAT 96–99; BMI 34.5
--- NOTE | 2021-01-21 00:31 | ADMGEN ---
This patient, Reinaldo Michelle, was admitted to Medical Room 245-. Patient/family oriented to hospital policies and general routines including ID bracelet, bed and alarms, visiting hours, pain management, procedures, bathroom and other care routines, personal items, smoking policy, room service/diet, and visiting hours. Information on how to activate the Rapid Response Team has been discussed. Patient/Family are encouraged to report perceived risks to care and to ask questions if they do not understand what they are told or what they should do.
[2021-01-21] MEDS: LACTATED RINGERS 1,000 ML 125 ML IV CONT (01:41)
[2021-01-21 05:44] LABS: Basophils Percent Auto 0.1 % (0.2-1.2); Hematocrit 43.8 % (42.0-52.0); Hemoglobin 14.7 g/dL (14.0-18.0); Immature Granulocyte Absolute 0.07 K/mm3 (0.00-0.031); Immature Granulocyte Percent A 0.5 % (0-0.5); Lymphocytes Absolute Auto 0.74 K/mm3 (0.9-3.2); Lymphocytes Percent Auto 4.8 % (18.3-44.2); Mean Corpuscular HGB Conc 33.6 g/dl (32-36); Mean Corpuscular Hemoglobin 28.7 pg (26-34); Mean Corpuscular Volume 85.5 fl (80-100); Mean Platelet Volume 9.8 fl (7.4-10.4); Monocytes Absolute Auto 0.6 K/mm3 (0.1-0.6); Monocytes Percent Auto 3.6 % (2.6-8.5); Neutrophils Absolute Auto 14.2 K/mm3 (1.3-6.7); Platelet Count Result 353 k/mm3 (150-375); Red Blood Count 5.12 M/mm3 (4.6-6.20); Red Cell Distribution Width 13.1 % (11.5-14.5); White Blood Count 15.6 K/mm3 (4.5-10.0)
[2021-01-21 05:56] LABS: Anion Gap 12 mmol/L (8-16); Blood Urea Nitrogen 11 mg/dL (9-20); Calcium 9.1 mg/dL (8.4-10.2); Carbon Dioxide 23 mmol/L (22-30); Chloride 104 mmol/L (98-107); Estimated CRCL calculation 126 ml/min; Estimated Glomerular Filt Rate > 60; Glucose 125 mg/dL (65-110); Potassium 3.8 mmol/L (3.4-5.0); Sodium 139 mmol/L (137-145)
[2021-01-21] MEDS: CLINDAMYCIN 900 MG/D5W 50 ML 900 MG/50 ML PIGGYBACK 50 MG IVPB ×3 (06:37→22:09)
[2021-01-21] MEDS: FAMOTIDINE 20 MG/2 ML VIAL IV PUSH ×2 (08:27→22:09)
--- NOTE | 2021-01-21 09:02 | PM.IMHP ---
H&P: HPI History of Present Illness Date/Time: 01/21/21 09:02 <Yumi Mi PA-C - Last Filed: 01/21/21 09:30> Chief Complaint: Left face swelling/pain <Yumi Mi PA-C - Last Filed: 01/21/21 09:30> Narrative: The patient is a 35-year-old man with no chronic medical history, who presented to the emergency room with left-sided facial swelling and pain. The patient states he has a history of a chipped tooth to his back left molar. he denies any history of prior tooth infection to this area. He woke up on Monday01/18/21 with pain, swelling, to his left jaw. he had associated fevers, trouble opening his mouth wide, hard time swallowing, drooling of the left side of his mouth. he tried to apply ice to the left side of his face, take Tylenol and ibuprofen without much relief. Yesterday he had worsening symptoms when he woke up with associated dry heaving and fever of 101. He decided to come into the emergency room for further evaluation. the patient's initial labs showed he was afebrile, tachycardic at 121 beats per minute, stable blood pressure to 129/70, normal respiration oxygenation on room air. Initial labs showed leukocytosis at 19,000, with elevated neutrophils at 81%. Normal BMP. Elevated CRP at 21.5. Strep Culture is pending at this time. CT soft tissue neck showed he has Asymmetric soft tissue density in the hypopharynx and to a lesser degree in the nasopharynx to the left of midline which could reflect early phlegmon. No discrete abscess identified. the emergency room contacted ENT for consultation upon admission. He was started on IV clindamycin for acute infection. PCP: Dr. Barroso CODE: Full Code POA: , Tayolr Michelle <Yumi Mi PA-C - Last Filed: 01/21/21 09:30> Review of Systems Review of Systems: All systems reviewed & are unremarkable except as noted in HPI and below <Yumi Mi PA-C - Last Filed: 01/21/21 09:30> [facility] Past Medical History Medical History: Medical History (Updated 01/22/21 @ 14:37 by Thomas Angel MD) No pertinent past medical history Obesity <Yumi Mi PA-C - Last Filed: 01/21/21 09:30> Surgical History Surgical History: Surgical History Hx of vasectomy <Yumi Mi PA-C - Last Filed: 01/21/21 09:30> Family History Family History: Family History Mother Diabetes mellitus <Yumi Mi PA-C - Last Filed: 01/21/21 09:30> Social History Social History: Social History Smoking status: Never smoker Alcohol intake: never Substance use: never Living arrangements: with family Additional living arrangements comments: Lives in [place] with his and 4 children. Occupation/Education: occupation Gender identity (if verbalized by the patient): Male Spiritual care concerns: No <Yumi Mi PA-C - Last Filed: 01/21/21 09:30> Meds Home Medications and Allergies Home medications: Home Medications Medication Instructions Recorded Confirmed Type tramadol 50 mg PO Q6H PRN 01/21/21 01/21/21 History <Yumi Mi PA-C - Last Filed: 01/21/21 09:30> Allergies/Adverse reactions: Allergies Allergy/AdvReac Type Severity Reaction Status Date / Time No Known Allergies Allergy Verified 01/20/21 20:21 <Yumi Mi PA-C - Last Filed: 01/21/21 09:30> Vital Signs Vital Signs - 24 hr 01/20/21 19:43 01/20/21 21:19 01/20/21 23:11 Temperature 98.2 F 98.2 F Pulse Rate 121 H 99 Respiratory Rate 18 15 Blood Pressure 129/70 125/82 Pulse Oximetry 96 95 01/21/21 00:00 01/21/21 04:00 01/21/21 08:00 Temperature 97.5 F L 97.0 F L 97.3 F L Pulse Rate 89 70 61 Respiratory Rate 18 18 18 Blood Pressure 132/83 112/62 112/70 Pulse Oximetry 96 96 96 <Yumi Regalado Ros
--- NOTE | 2021-01-21 10:33 | WPDPROCEDUR ---
Procedures Laryngoscopy Sedation/Analgesia: lidocane nebulizer Technique: indirect nasal laryngoscopy Laryngoscopy Comments: Nasal passage anesthetized with lidocaine and Afrin scope inserted overall Brooks normal appearing sinonasal passages normal nasopharynx there is mild edema of the left hypopharynx and left supraglottic vocal process largely nonobstructive no purulence no masses ulcerations or lesions full and symmetric vocal cord movement the glottis is patent and the patient appears intubatable
--- NOTE | 2021-01-21 10:34 | WPDCN ---
Assessment and Plan Assessment and plan (1) Infection of supraglottis (throat): Code(s): J04.30 - Supraglottitis, unspecified, without obstruction Status: Acute Assessment and Plan: Overall the patient feels much improved, his white count is improving. I would recommend continued IV antibiotics, clindamycin or Unasyn, I would discharge the patient on 1 week of oral antibiotics. He can follow up with me as needed. At this time I would hold steroids to make sure he continues to improve. Reasonable to keep the patient for 24 more hours to ensure he improves without further steroid and only antibiotic. No operative intervention planned at this time. Would trend white count daily. (2) Pharyngitis: Code(s): J02.9 - Acute pharyngitis, unspecified Status: Acute HPI Data of Consult Date/Time: 01/21/21 10:34 Requesting Physician: Yumi Mi PA-C Primary Care Provider: Alanna Barroso, Consult Narrative Narrative: Reinaldo Michelle is a 35 year old male who presents with hoarse voice and sore throat of several days reports having bad 10 tissue on the left side. CT personally reviewed by myself demonstrates some left peritonsillar phlegmon possible small abscess as well as left hypopharyngeal or supraglottic soft tissue stranding likely representing phlegmon. Patient reports mild sore throat and dental pain. He has a known dental issue on the left posterior dentition. Review of Systems Constitutional: Constitutional: Denies fatigue, Denies fever(s) and Denies lethargy Eyes: Eyes: Denies blurry vision and Denies change in vision ENT: Reports as per HPI Cardiovascular: Cardiovascular: Denies chest pain Respiratory: Respiratory: Denies cough Endocrine: Endocrine: Denies fatigue Hematologic/Lymphatic: Hematologic/Lymphatic: Denies easy bleeding, Denies easy bruising and Denies lymphadenopathy Allergic/Immunologic: Allergic/Immunologic: Denies seasonal rhinorrhea PMFSH Past Medical History Medical History (Updated 01/21/21 @ 10:35 by Salvador Limon MD) No pertinent past medical history Surgical History Surgical History (Updated 01/21/21 @ 09:08 by Yumi Mi PA-C) Hx of vasectomy Family History Family History Mother Diabetes mellitus Social History Social History (Updated 01/21/21 @ 09:09 by Yumi Mi PA-C) Smoking status: Never smoker Alcohol intake: never Substance use: never Living arrangements: with family Additional living arrangements comments: Lives in [place] with his and 4 children. Occupation/Education: occupation Gender identity (if verbalized by the patient): Male Spiritual care concerns: No Meds Home Medications and Allergies Home Medications Medication Instructions Recorded Confirmed Type tramadol 50 mg PO Q6H PRN 01/21/21 01/21/21 History Allergies Allergy/AdvReac Type Severity Reaction Status Date / Time No Known Allergies Allergy Verified 01/20/21 20:21 Vital Signs Vital Signs - 24 hr 01/20/21 19:43 01/20/21 21:19 01/20/21 23:11 Temperature 36.8 C 36.8 C Pulse Rate 121 H 99 Respiratory Rate 18 15 Blood Pressure 129/70 125/82 Pulse Oximetry 96 95 01/21/21 00:00 01/21/21 04:00 01/21/21 08:00 Temperature 36.4 C L 36.1 C L 36.3 C L Pulse Rate 89 70 61 Respiratory Rate 18 18 18 Blood Pressure 132/83 112/62 112/70 Pulse Oximetry 96 96 96 Exam Const: General: cooperative, healthy appearing, comfortable, well developed and alert HENMT: Head: normal to inspection, normocephalic and atraumatic Ears: hearing grossly normal bilaterally, external ears normal, TM's normal bilaterally and EAC's normal General nose exam: Normal external nose present, Normal nares present, No nasal polyps present, Normal nasal mucous membranes and turbinates present and Normal septum present Face and sinus: normal facial ex
[2021-01-21] MEDS: traMADol HCL (*CRX) 50 MG TABLET PO ×2 (14:49→22:07)
[2021-01-21] MEDS: HYDROcodone/acetaminophen (*CRX) 5-325 MG TABLET 1 TAB PO (23:10)
[2021-01-22] VITALS (32 sets, daily range): BP systolic 99–144; BP diastolic 61–114; PULSE 52–95; RESP 16–22; TEMP 36.2–37.5; O2SAT 95–100; BMI 34.5
[2021-01-22] MEDS: IBUPROFEN 600 MG TABLET PO (00:35)
[2021-01-22] MEDS: traMADol HCL (*CRX) 50 MG TABLET PO (04:19)
[2021-01-22 05:46] LABS: Basophils Absolute Auto 0.1 K/mm3 (0.0-0.1); Basophils Percent Auto 0.2 % (0.2-1.2); Eosinophils Absolute Auto 0.1 K/mm3 (0-0.3); Eosinophils Percent Auto 0.2 % (0-4.4); Hematocrit 40.7 % (42.0-52.0); Hemoglobin 13.8 g/dL (14.0-18.0); Immature Granulocyte Absolute 0.15 K/mm3 (0.00-0.031); Immature Granulocyte Percent A 0.6 % (0-0.5); Lymphocytes Absolute Auto 2.27 K/mm3 (0.9-3.2); Lymphocytes Percent Auto 9.7 % (18.3-44.2); Mean Corpuscular HGB Conc 33.9 g/dl (32-36); Mean Corpuscular Hemoglobin 28.6 pg (26-34); Mean Corpuscular Volume 84.4 fl (80-100); Monocytes Absolute Auto 2.3 K/mm3 (0.1-0.6); Monocytes Percent Auto 9.9 % (2.6-8.5); Neutrophils Absolute Auto 18.5 K/mm3 (1.3-6.7); Neutrophils Percent Auto 79.4 % (45.5-73.1); Platelet Count Result 376 k/mm3 (150-375); Red Blood Count 4.82 M/mm3 (4.6-6.20); Red Cell Distribution Width 13.1 % (11.5-14.5); White Blood Count 23.3 K/mm3 (4.5-10.0)
[2021-01-22 06:03] LABS: CRP 7.9 mg/dL (<1.0)
[2021-01-22] MEDS: CLINDAMYCIN 900 MG/D5W 50 ML 900 MG/50 ML PIGGYBACK 50 MG IVPB ×3 (06:33→22:51)
[2021-01-22] MEDS: HYDROcodone/acetaminophen (*CRX) 5-325 MG TABLET 1 TAB PO (07:58)
[2021-01-22] MEDS: FAMOTIDINE 20 MG/2 ML VIAL IV PUSH ×2 (08:00→21:29)
[2021-01-22 09:41] LABS: Alveolar/Arterial O2 Gradient 35.7 mmHg; Base Excess ABG 2.2 mEq/l (+/-2.0); Fractional Inspired Oxygen 21 %; HCO3 ABG 26.4 mEq/l (22.0-26.0); Oxygen Content ABG 19.8 %vol (16.0-22.0); Oxygen Saturation ABG 93.8 % (95.0-100.0); Oxyhemoglobin 93.8 % THb (90.0-100.0); PCO2 ABG 39.8 mmHg (35.0-45.0); PO2 ABG 66.4 mmHg (80.0-100.0); PO2 FiO2 Ratio Arterial Blood 3.16 %
[2021-01-22 09:42] LABS: Device ROOM AIR; Site Drawn LEFT BRACHIAL
--- NOTE | 2021-01-22 09:50 | PM.IMPN ---
Progress Note: A&P Assessment and Plan (1) Infection of supraglottis (throat): Code(s): J04.30 - Supraglottitis, unspecified, without obstruction <Yumi Mi PA-C - Last Filed: 01/22/21 10:38> Status: Acute <Yumi Mi PA-C - Last Filed: 01/22/21 10:38> Assessment and Plan: Patient was admitted and started on IV Clindamycin and ENT was consulted from the ER. CT soft tissue neck showed Asymmetric soft tissue density in the hypopharynx and to a lesser degree in the nasopharynx to the left of midline which could reflect early phlegmon. Strep Swab negative Patient does have a chipped tooth to back left molar could be cause of infection 01/22/21: Patient has worsening swelling, pain to his left jaw area. concern for worsening infection versus abscess formation verses Bernard's angina vs worsening epiglottitis. he is going to be moved to the IMU for further monitoring of his respiratory status with continuous pulse oximetry and telemetry. We are getting a stat CT soft tissue neck for further evaluation. We have broadened antibiotics with IV clindamycin and added IV Unasyn. blood cultures are being obtained. Leukocytosis Became worse today which I was going to attributes to him getting IV dexamethasone in the emergency room, since his CRP is going down as well as his neutrophil counts going down. Broaden antibiotics to ensure we have coverage. Will better control pain with IV Toradol and Dilaudid p.r.n. he has remained afebrile today. Call out to ENT, Dr. Limon for further evaluation and recommendations. Continue monitoring labs, CRP, patient's symptoms. Appreciate ENTs consultation at this time. <Yumi Mi PA-C - Last Filed: 01/22/21 10:38> (2) Pharyngitis: Code(s): J02.9 - Acute pharyngitis, unspecified <Yumi Mi PA-C - Last Filed: 01/22/21 10:38> Status: Acute <Yumi L. Silviar, PA-C - Last Filed: 01/22/21 10:38> Assessment and Plan: See above <Yumi L. Roser, PA-C - Last Filed: 01/22/21 10:38> (3) Sepsis: Code(s): A41.9 - Sepsis, unspecified organism <Yumi L. Roser, PA-C - Last Filed: 01/22/21 10:38> Status: Acute <Yumi L. Roser, PA-C - Last Filed: 01/22/21 10:38> Assessment and Plan: patient met criteria for sepsis with leukocytosis, tachycardia, in the setting of pharyngitis infection. Leukocytosis increased today (believed steroid usage), normal oxygenation, afebrile, but worsening symptoms. Continue IV antibiotics. Continue monitoring. <Yumi L. Silviar, PA-C - Last Filed: 01/22/21 10:38> (4) Acute respiratory failure: Code(s): J96.00 - Acute respiratory failure, unspecified whether with hypoxia or hypercapnia <Yumi L. Shmuel, PA-C - Last Filed: 01/22/21 10:38> Status: Acute <Yumi L. 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 Shmuel PA-C - Last Filed: 01/22/21 10:38> Status: Acute <Yumi L. Roser, PA-C - Last Filed: 01/22/21 10:38> (6) Odontogenic infection of jaw: Code(s): M27.2 - Inflammatory conditions of jaws <Yumi L. Silviar, PA-C - Last Filed: 01/22/21 10:38> Status: Acute <STEPHY Monsivais Last Filed: 01/22/21 10:38> (7) Epiglottitis: Code(s): J05.10 - Acute epiglottitis without obstruction <Yumi Mi PA-C - Last Filed: 01/22/21 10:38> Status: Acute <Yumi Mi PA-C - Last Filed: 01/22/21 10:38> Additional Plan Critical care time of 60 minutes spent with the patient at bedside, talking with attending providers, talking with the nurse, placing stat orders, reviewing stat o
[2021-01-22] MEDS: HYDROmorphone HCL INJ (*CRX) 1 MG/ML SYR 0.5 MG IV PUSH (10:42)
[2021-01-22] MEDS: AMPICILLIN SULB 3 GM/NS 100 ML 3 GM/100 ML VIAL IVPB ×3 (10:43→23:21)
--- NOTE | 2021-01-22 11:38 | PC.NURSE ---
Patient left floor to OR for surgical procedure.
--- NOTE | 2021-01-22 12:00 | SUR.PREOP ---
1157; DR GALVIN AND DR BARNETT IN PREOP ROOM ASSESSING PT. DR GALVIN ORAL SUCTIONING PT.
--- NOTE | 2021-01-22 12:16 | WPDANESEPPF ---
Anes - Initial Pre Proc Eval Procedure: Operation Date: 01/22/21 13:00 Proposed Procedures p Incision And Drainage Throat And Mandible - Kwasi Goss MD Date/Time: 01/22/21 12:16 Surgeon: Yumi Mi PA-C Pre Op Diagnosis: Pharyngitis Patient Data Age: 35 Gender: M Height: 1.78 m Weight: 109.2 kg Last Vital Signs Temp 36.9 C 01/22/21 12:03 Pulse 75 01/22/21 12:03 Resp 22 H 01/22/21 12:03 BP 137/61 01/22/21 12:03 Pulse Ox 99 01/22/21 12:03 Allergies Allergy/AdvReac Type Severity Reaction Status Date / Time No Known Allergies Allergy Verified 01/20/21 20:21 Home Medications Medication Instructions Recorded Confirmed Type tramadol 50 mg PO Q6H PRN 01/21/21 01/21/21 History Laboratory Tests 01/22/21 01/22/21 01/22/21 05:16 05:17 09:35 WBC 23.3 K/mm3 H K/mm3 (4.5-10.0) RBC 4.82 M/mm3 M/mm3 (4.6-6.20) Hgb 13.8 g/dL L g/dL (14.0-18.0) Hct 40.7 % L % (42.0-52.0) MCV 84.4 fl fl (80-100) MCH 28.6 pg pg (26-34) MCHC 33.9 g/dl g/dl (32-36) RDW 13.1 % % (11.5-14.5) Plt Count 376 k/mm3 H k/mm3 (150-375) MPV 10.0 fl fl (7.4-10.4) Immature Gran % (Auto) 0.6 % H % (0-0.5) Neut % (Auto) 79.4 % H % (45.5-73.1) Lymph % (Auto) 9.7 % L % (18.3-44.2) [place] % (Auto) 9.9 % H % (2.6-8.5) Eos % (Auto) 0.2 % % (0-4.4) Baso % (Auto) 0.2 % % (0.2-1.2) Lymph # (Auto) 2.27 K/mm3 K/mm3 (0.9-3.2) [place] # (Auto) 2.3 K/mm3 H K/mm3 (0.1-0.6) Eos # (Auto) 0.1 K/mm3 K/mm3 (0-0.3) Baso # (Auto) 0.1 K/mm3 K/mm3 (0.0-0.1) Abs Immat Gran (auto) 0.15 K/mm3 H K/mm3 (0.00-0.031) Absolute Neuts (auto) 18.5 K/mm3 H K/mm3 (1.3-6.7) Absolute Nucleated RBC 0.0 K/mm3 K/mm3 (0.0-0.012) Nucleated RBC % 0.0 % % (0.0-0.2) Puncture Site Left brachial ABG pH 7.440 (7.350-7.450) ABG pCO2 39.8 mmHg mmHg (35.0-45.0) ABG pO2 66.4 mmHg L mmHg (80.0-100.0) ABG PO2/FiO2 Ratio 3.16 % % ABG HCO3 26.4 mEq/l H mEq/l (22.0-26.0) ABG O2 Saturation 93.8 % L % (95.0-100.0) ABG O2 Content 19.8 %vol %vol (16.0-22.0) ABG Base Excess 2.2 mEq/l mEq/l (+/-2.0) A-a Gradient 35.7 mmHg mmHg Oxyhemoglobin 93.8 % THb % THb (90.0-100.0) Total Hemoglobin 15.0 g/dL g/dL (12.0-18.0) O2 Delivery Device Room air O2 Liters/Min 0.0 LPM LPM FiO2 21 % % C-Reactive Protein 7.9 mg/dL H mg/dL (<1.0) Patient hx anesthesia problems: none Family hx anesthesia problems: none [facility] Past Medical History Medical History (Updated 01/22/21 @ 12:17 by Lg Ramos MD) No pertinent past medical history Obesity Surgical History Surgical History Hx of vasectomy Family History Family History Mother Diabetes mellitus Social History Social History Smoking status: Never smoker Alcohol intake: never Substance use: never Living arrangements: with family Additional living arrangements comments: Lives in [place] with his and 4 children. Occupation/Education: occupation Gender identity (if verbalized by the patient): Male Spiritual care concerns: No Anes - Eval Final PreProcedure Day of Procedure 01/22/21 12:16 Patient weight: obese Lungs: clear to auscultation Airway: Mallampati scale class IV and special considerations poor opening Neurological: alert and oriented Last oral intake: >/= 8 hours ASA classification: III Emergent: yes Anesthetic plan: proceed Anesthesia type and monitoring
[2021-01-22] MEDS: LACTATED RINGERS 1,000 ML 30 ML IV CONT (12:19)
--- NOTE | 2021-01-22 13:02 | W.PM.PROC2 ---
Procedure Note - Detailed Date of Procedure 01/22/21 Pre-op Diagnosis Pharyngitis mandible abscess epiglottis Post-op Diagnosis same Procedure Performed i d abscess Surgeon wKasi Goss MD Description of Procedure Patient was prepped and draped fashion general anesthesia the aid of the glide scope with great difficulty and endotracheal tube was placed in the glottis inspection of the glottis revealed marked swelling of the epiglottis and paraglottic fat as the structures and incision was made posterior to the molar on the left side the back markedly swollen 0 pus was aspirated but incision was made this point it was elected to keep him intubated in the ICU because of a glottic swelling Urine Output 600
--- NOTE | 2021-01-22 14:29 | WPDCNINT ---
Assessment and Plan Assessment and plan (1) Acute respiratory failure: Code(s): J96.00 - Acute respiratory failure, unspecified whether with hypoxia or hypercapnia Status: Acute Assessment and Plan: acute respiratory failure and sepsis secondary to supraglottic airway obstruction from epiglottitis, odontogenic infection of left mandibular area and abscess, edema, pharyngitis patient now status post incision and drainage by ENT intubated with size 6 ET tube with fiberoptic. Continue full mechanical ventilation support to prevent hypoxemia/hypercarbia and end organ damage. 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 Status: Acute (4) Odontogenic infection of jaw: Code(s): M27.2 - Inflammatory conditions of jaws Status: Acute (5) Infection of supraglottis (throat): Code(s): J04.30 - Supraglottitis, unspecified, without obstruction Status: Acute (6) Pharyngitis: Code(s): J02.9 - Acute pharyngitis, unspecified Status: Acute (7) Epiglottitis: Code(s): J05.10 - Acute epiglottitis without obstruction Status: Acute Additional Plan DVT prophylaxis - Lovenox and SCDs Stress ulcer prophylaxis - Pepcid Nutrition - NPO SSI to monitor sugars Code Status - Full Code Total Critical Care Time - 30 minutes Due to a high probability of clinically significant, life threatening deterioration, the patient required my highest level of preparedness to intervene emergently and I personally spent this critical care time directly and personally managing the patient. This critical care time included obtaining a history; examining the patient; pulse oximetry; ordering and review of studies; arranging urgent treatment with development of a management plan; evaluation of patient's response to treatment; frequent reassessment; and discussions with other providers. It was exclusive of separately billable procedures and treating other patients and teaching time. Please see Assessment and Plan section and the rest of the note for further information on patient assessment and treatment Wire Inspector Consult Note Consult date: 01/22/21 Time Seen: 14:10 HPI: Reinaldo Michelle is a 35 year old male with significant medical history, who presented to the emergency room 01/21 with left-sided facial swelling and pain that started on Monday01/18/21 with pain, swelling, to his left jaw. he also had associated fevers, trouble opening his mouth wide, hard time swallowing, drooling of the left side of his mouth. on presentation patient was was afebrile, tachycardic at 121 beats per minute, stable blood pressure to 129/70, normal respiration oxygenation on room air. Initial labs showed leukocytosis at 19,000, with elevated neutrophils at 81%. Normal BMP. Elevated CRP at 21.5. CT soft tissue neck showed he has Asymmetric soft tissue density in the hypopharynx and to a lesser degree in the nasopharynx to the left of midline which could reflect early phlegmon. No discrete abscess was identified. patient was started on IV clindamycin for acute infection and admitted to floor. ENT was consulted and patient had indirect nasal laryngoscope be on the floor. Over the course patient's condition deteriorated with worsening of swelling. Repeat CT was done today which showed 1. Developing abscess along inner surface left mandibular body through the floor of the mouth, probably odontogenic origin. 2. Worsening phlegmonous appearance to left-sided pontine tonsils with edema effacing the piriform sinus and vallecula, and probably edema of the left side of the
[2021-01-22] MEDS: FENTANYL 2,500MCG/NS250ML(*CRX 2,500 MCG/250 ML BAG IV CONT (15:04)
[2021-01-22] MEDS: MIDAZOLAM 100MG/NS 100ML(*CRX) 100 MG/100 ML BAG IV CONT (15:07)
[2021-01-22] MEDS: PROPOFOL IV EMULSION 100 ML 6.55 MG IV CONT (15:08)
[2021-01-22] MEDS: LACTATED RINGERS 1,000 ML 100 ML IV CONT (15:09)
[2021-01-22 15:16] LABS: Glucose Point of Care 146 mg/dl (65-105)
[2021-01-22 16:25] LABS: Alveolar/Arterial O2 Gradient 597.2 mmHg; Base Excess ABG 0.1 mEq/l (+/-2.0); Device VENTILATOR; Fractional Inspired Oxygen 100 %; HCO3 ABG 23.6 mEq/l (22.0-26.0); Modified Allen's Test Pass; Oxygen Content ABG 19.7 %vol (16.0-22.0); Oxygen Saturation ABG 96.4 % (95.0-100.0); Oxyhemoglobin 95.2 % THb (90.0-100.0); PO2 ABG 80.8 mmHg (80.0-100.0); PO2 FiO2 Ratio Arterial Blood 0.81 %; Site Drawn RIGHT RADIAL; Total Hemoglobin 14.7 g/dL (12.0-18.0); pH ABG 7.447 (7.350-7.450)
[2021-01-22 16:26] LABS: Arterial Blood Gas PEEP 5 cmH2O; Arterial Blood Gas Tidal Volume 450 ml; Arterial Blood Gas Vent Mode CMV; Arterial Blood Gas Ventilator rate 20 /MIN
[2021-01-22 16:47] LABS: Glucose Point of Care 152 mg/dl (65-105)
[2021-01-22] MEDS: PROPOFOL IV EMULSION 100 ML 13.1 MG IV CONT (21:27)
[2021-01-22] MEDS: MINERAL OIL/WHITE PETROLATUM OINTMENT 1 APPLIC EACH EYE (21:32)
[2021-01-22 21:51] LABS: Glucose Point of Care 148 mg/dl (65-105)
[2021-01-22 23:46] LABS: Glucose Point of Care 137 mg/dl (65-105)
[2021-01-23] VITALS (39 sets, daily range): BP systolic 91–111; BP diastolic 53–73; PULSE 49–77; RESP 15–21; TEMP 33.1–37.1; O2SAT 93–97
[2021-01-23] MEDS: LACTATED RINGERS 1,000 ML 100 ML IV CONT ×2 (00:37→12:32)
[2021-01-23 04:32] LABS: Alveolar/Arterial O2 Gradient 414.6 mmHg; Base Excess ABG -1.5 mEq/l (+/-2.0); Carboxyhemoglobin 0.3 % THb (0-2.0); Fractional Inspired Oxygen 70 %; HCO3 ABG 20.4 mEq/l (22.0-26.0); Methemoglobin ABG 0.3 %THb (0-1.5); Oxygen Content ABG 17.6 %vol (16.0-22.0); Oxygen Saturation ABG 91.4 % (95.0-100.0); Oxyhemoglobin 89.7 % THb (90.0-100.0); PCO2 ABG 27.5 mmHg (35.0-45.0); PO2 ABG 54.9 mmHg (80.0-100.0); PO2 FiO2 Ratio Arterial Blood 0.78 %; Reduced Hemoglobin 9.7 %THb (0-5.0); pH ABG 7.489 (7.350-7.450)
[2021-01-23 04:33] LABS: Device VENTILATOR; Modified Allen's Test Pass; Site Drawn RIGHT RADIAL
[2021-01-23 04:34] LABS: Arterial Blood Gas PEEP 5 cmH2O; Arterial Blood Gas Tidal Volume 450 ml; Arterial Blood Gas Vent Mode CMV; Arterial Blood Gas Ventilator rate 20 /MIN
[2021-01-23 04:46] LABS: Basophils Percent Auto 0.1 % (0.2-1.2); Hematocrit 39.9 % (42.0-52.0); Hemoglobin 13.2 g/dL (14.0-18.0); Immature Granulocyte Absolute 0.09 K/mm3 (0.00-0.031); Immature Granulocyte Percent A 0.6 % (0-0.5); Lymphocytes Absolute Auto 0.87 K/mm3 (0.9-3.2); Lymphocytes Percent Auto 5.3 % (18.3-44.2); Mean Corpuscular HGB Conc 33.1 g/dl (32-36); Mean Corpuscular Hemoglobin 28.7 pg (26-34); Mean Corpuscular Volume 86.7 fl (80-100); Monocytes Absolute Auto 0.7 K/mm3 (0.1-0.6); Monocytes Percent Auto 4.4 % (2.6-8.5); Neutrophils Absolute Auto 14.6 K/mm3 (1.3-6.7); Neutrophils Percent Auto 89.6 % (45.5-73.1); Platelet Count Result 357 k/mm3 (150-375); Red Cell Distribution Width 13.3 % (11.5-14.5); White Blood Count 16.3 K/mm3 (4.5-10.0)
[2021-01-23 04:59] LABS: Alanine Aminotransferase 36 U/L (4-50); Albumin Level 3.4 g/dL (3.5-5.1); Alkaline Phosphatase 78 U/L (38-126); Anion Gap 10 mmol/L (8-16); Aspartate Amino Transferase 27 U/L (17-59); Bilirubin,Total 0.7 mg/dL (0.2-1.3); Blood Urea Nitrogen 14 mg/dL (9-20); Calcium 8.8 mg/dL (8.4-10.2); Carbon Dioxide 25 mmol/L (22-30); Chloride 104 mmol/L (98-107); Estimated CRCL calculation 117 ml/min; Estimated Glomerular Filt Rate > 60; Glucose 130 mg/dL (65-110); Potassium 3.9 mmol/L (3.4-5.0); Sodium 139 mmol/L (137-145)
[2021-01-23] MEDS: AMPICILLIN SULB 3 GM/NS 100 ML 3 GM/100 ML VIAL IVPB ×3 (05:03→17:07)
[2021-01-23] MEDS: CLINDAMYCIN 900 MG/D5W 50 ML 900 MG/50 ML PIGGYBACK 50 MG IVPB ×3 (06:01→22:39)
[2021-01-23 06:06] LABS: CRP 22.8 mg/dL (<1.0)
[2021-01-23] MEDS: PROPOFOL IV EMULSION 100 ML 9.83 MG IV CONT ×2 (06:43→16:16)
--- NOTE | 2021-01-23 08:47 | WPDINTPN ---
Progress Note: A&P Assessment and Plan (1) Acute respiratory failure: Code(s): J96.00 - Acute respiratory failure, unspecified whether with hypoxia or hypercapnia Status: Acute Assessment and Plan: acute respiratory failure and sepsis secondary to supraglottic airway obstruction from epiglottitis, odontogenic infection of left mandibular area and abscess, edema, pharyngitis 01/22 status post incision and drainage by ENT intubated with size 6 ET tube with fiberoptic. Continue full mechanical ventilation support to prevent hypoxemia/hypercarbia and end organ damage. Ventilator reviewed and decrease rate to 16 and increase PEEP to 10 continue sedation due to compromised airway reviewed ABG and PCXR. chest x-ray shows some infiltrates which may suggest pneumonia. 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 Status: Acute (4) Odontogenic infection of jaw: Code(s): M27.2 - Inflammatory conditions of jaws Status: Acute (5) Infection of supraglottis (throat): Code(s): J04.30 - Supraglottitis, unspecified, without obstruction Status: Acute (6) Pharyngitis: Code(s): J02.9 - Acute pharyngitis, unspecified Status: Acute (7) Epiglottitis: Code(s): J05.10 - Acute epiglottitis without obstruction Status: Acute Additional Plan DVT prophylaxis - Lovenox and SCDs Stress ulcer prophylaxis - Pepcid Nutrition - start tube feed SSI to monitor sugars Code Status - Full Code Total Critical Care Time - 31 minutes Due to a high probability of clinically significant, life threatening deterioration, the patient required my highest level of preparedness to intervene emergently and I personally spent this critical care time directly and personally managing the patient. This critical care time included obtaining a history; examining the patient; pulse oximetry; ordering and review of studies; arranging urgent treatment with development of a management plan; evaluation of patient's response to treatment; frequent reassessment; and discussions with other providers. It was exclusive of separately billable procedures and treating other patients and teaching time. Please see Assessment and Plan section and the rest of the note for further information on patient assessment and treatment Subjective Date/time seen: 01/23/21 08:47 Overnight events reviewed Afebrile Continues to be on mechanical ventilation Continues to be on sedation Vitals acceptable Interval history: Data of service 01/22/2021: the patient reports worsening swelling, pain to his left jaw line over the last 2 hours this morning. He has ice to it without any improvement. He denies any trouble breathing, he states all of his trouble with his speech is related to the swelling to the left side of his face in secondary to pain. He does report some trouble swallowing. he denies any fevers, chills, nausea, vomiting, abdominal pain, chest pain, or any other symptoms at this time. Review of Systems Review of Systems: ROS unobtainable: Yes unobtainable due to endotracheal tube and unobtainable due to medical condition Exam Narrative: General: Pt is sedated, intubated and on mechanical ventilation Lungs/Chest: Trachea central Coarse BS B/L, No crackles or wheezing. Cardiac: RRR. Normal S1 S2. No murmurs Circulation: Pedal pulses are intact and symmetrical. Abdomen: Decreased bowel sounds. Obese. Soft. NT. ND. Extremities: No clubbing, cyanosis or edema. Warm : Fraire in place Neurologic: Unable to assess due to sedation. PERRL HEENT: patient has a size 6
--- NOTE | 2021-01-23 09:04 | WPDANESPN ---
Anes - Prog Note Post-Op Date/Time: 01/23/21 09:04 Cardiovascular status: other (management per ICU team) Respiratory status: other (management per ICU team. pt vented.) Airway patency: other (pt intubated and on vent) Mental status: other (pt sedated at this time) Post-Op hydration status: other (management per ICU team) Vital Signs: Last Vital Signs Temp 33.1 C L 01/23/21 06:00 Pulse 55 L 01/23/21 06:43 Resp 20 01/23/21 06:43 BP 103/62 01/23/21 06:00 Pulse Ox 94 01/23/21 06:00 Pain Score (VAS): unable to assess I/O: Intake & Output 01/22/21 01/23/21 01/23/21 23:59 07:59 15:59 Intake Total 790.0 971 Output Total 650 875 Balance 140.0 96 Laboratory Tests 01/23/21 04:27 01/23/21 04:27 01/22/21 01/22/21 01/22/21 09:35 15:13 16:20 WBC RBC Hgb Hct MCV MCH MCHC RDW Plt Count MPV Immature Gran % (Auto) Neut % (Auto) Lymph % (Auto) [place] % (Auto) Eos % (Auto) Baso % (Auto) Lymph # (Auto) [place] # (Auto) Eos # (Auto) Baso # (Auto) Abs Immat Gran (auto) Absolute Neuts (auto) Absolute Nucleated RBC Nucleated RBC % Puncture Site Left brachial Right radial ABG pH 7.440 7.447 ABG pCO2 39.8 35.0 ABG pO2 66.4 L 80.8 ABG PO2/FiO2 Ratio 3.16 0.81 ABG HCO3 26.4 H 23.6 ABG O2 Saturation 93.8 L 96.4 ABG O2 Content 19.8 19.7 ABG Base Excess 2.2 0.1 A-a Gradient 35.7 597.2 Oxyhemoglobin 93.8 95.2 Carboxyhemoglobin Methemoglobin Reduced Hemoglobin Total Hemoglobin 15.0 14.7 O2 Delivery Device Room air Ventilator O2 Liters/Min 0.0 Not Reportable Minute Volume Not Reportable Vent Rate 20 Vent Mode Cmv FiO2 21 100 Tidal Volume 450 PEEP 5 Peak Inspir Pressure Not Reportable Pressure Support Not Reportable Sodium Potassium Chloride Carbon Dioxide Anion Gap BUN Creatinine Estim Creat Clear Calc Estimated GFR Glucose POC Capillary Glucose 146 H Calcium Magnesium Total Bilirubin AST ALT Alkaline Phosphatase C-Reactive Protein Total Protein Albumin 01/22/21 01/22/21 01/22/21 16:45 21:44 23:44 WBC RBC Hgb Hct MCV MCH MCHC RDW Plt Count MPV Immature Gran % (Auto) Neut % (Auto) Lymph % (Auto) [place] % (Auto) Eos % (Auto) Baso % (Auto) Lymph # (Auto) [place] # (Auto) Eos # (Auto) Baso # (Auto) Abs Immat Gran (auto) Absolute Neuts (auto) Absolute Nucleated RBC Nucleated RBC % Puncture Site ABG pH ABG pCO2 ABG pO2 ABG PO2/FiO2 Ratio ABG HCO3 ABG O2 Saturation ABG O2 Content ABG Base Excess A-a Gradient Oxyhemoglobin Carboxyhemoglobin Methemoglobin Reduced Hemoglobin Total Hemoglobin O2 Delivery Device O2 Liters/Min Minute Volume Vent Rate Vent Mode FiO2 Tidal Volume PEEP Peak Inspir Pressure Pressure Support Sodium Potassium Chloride Carbon Dioxide Anion Gap BUN Creatinine Estim Creat Clear Calc Estimated GFR Glucose POC Capillary Glucose 152 H 148 H 137 H Calcium Magnesium Total Bilirubin AST ALT Alkaline Phosphatase C-Reactive Protein Total Protein Albumin 01/23/21 01/23/21 01/23/21 04:10 04:27 04:27 WBC 16.3 H RBC 4.60 Hgb 13.2 L Hct 39.9 L MCV 86.7 MCH 28.7 MCHC 33.1 RDW 13.3 Plt Count 357 MPV 10.0 Immature Gran % (Auto) 0.6 H Neut % (Auto) 89.6 H Lymph % (Auto) 5.3 L [place] % (Auto) 4.4 Eos % (Auto) 0.0 Baso % (Auto) 0.1 L Lymph # (Auto) 0.87 L [place] # (Auto) 0.7 H Eos # (Auto) 0.0 Baso # (Auto) 0.0 Abs Immat Gran (auto) 0.09 H Absolute Neuts (auto) 14.6 H Absolute Nucleated RBC 0.0 Nucleated RBC % 0.0 Puncture Site Right radial ABG pH 7.
[2021-01-23] MEDS: FAMOTIDINE 20 MG/2 ML VIAL IV PUSH ×2 (09:14→20:11)
[2021-01-23] MEDS: MINERAL OIL/WHITE PETROLATUM OINTMENT 1 APPLIC EACH EYE ×2 (09:14→20:11)
[2021-01-23] MEDS: ENOXAPARIN 40 MG/0.4 ML SYRINGE SUB-Q (09:14)
[2021-01-23] MEDS: MIDAZOLAM 100MG/NS 100ML(*CRX) 100 MG/100 ML BAG IV CONT (09:25)
[2021-01-23 12:34] LABS: Glucose Point of Care 148 mg/dl (65-105)
[2021-01-23] MEDS: FENTANYL 2,500MCG/NS250ML(*CRX 2,500 MCG/250 ML BAG 7.5 MCG IV CONT (13:43)
--- NOTE | 2021-01-23 15:35 | PM.IMPN ---
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 Status: Acute (4) Odontogenic infection of jaw: Code(s): M27.2 - Inflammatory conditions of jaws Status: Acute (5) Infection of supraglottis (throat): Code(s): J04.30 - Supraglottitis, unspecified, without obstruction Status: Acute (6) Pharyngitis: Code(s): J02.9 - Acute pharyngitis, unspecified Status: Acute (7) Epiglottitis: Code(s): J05.10 - Acute epiglottitis without obstruction Status: Acute (8) PNA (pneumonia): Code(s): J18.9 - Pneumonia, unspecified organism Status: Acute Assessment and Plan: DVT prophylaxis - Lovenox and SCDs Stress ulcer prophylaxis - Pepcid Code Status - Full Code Additional Plan 35 yo M admitted to ICU w acute respiratory failure and sepsis secondary to supraglottic airway obstruction from epiglottitis, odontogenic infection of left mandibular area and abscess, edema, pharyngitis 01/22 status post incision and drainage by ENT intubated with size 6 ET tube with fiberoptic due to airway compromise on [facility] vent management per cc/pulm continue IV clindamycin and Unasyn IV Decadron and Bronchodilators group a strep throat culture is negative; blood cultures pending 01/23/21 chest x-ray shows some infiltrates possibly pneumonia. cont current abx continue IVFs at low dose tube feeds cont vent management per [employer] plan is to repeat neck CT 01/24 Subjective Date/time seen: 01/23/21 15:35 sedated, intubated, RN bedside case reviewed with her Exam Narrative: General: NAD obese sedated, intubated HEENT: ETT and OGT present Lungs/Chest: symmetric chest rise on mechanical ventilation Cardiac: S1 S2 RRR Abdomen: Soft. NT. ND. Extremities: No clubbing, cyanosis or edema. Warm : Fraire in place Neurologic: Unable to assess due to sedation Objective Data Vital Signs Vital Signs: Vital Signs - 24 hr 01/22/21 15:51 01/22/21 15:52 01/22/21 16:00 Temperature 99.5 F Pulse Rate 76 76 82 Respiratory Rate 20 20 20 Blood Pressure 121/71 Pulse Oximetry 98 01/22/21 16:15 01/22/21 16:45 01/22/21 17:00 Temperature Pulse Rate 73 69 69 Respiratory Rate 20 20 20 Blood Pressure Pulse Oximetry 01/22/21 17:19 01/22/21 17:30 01/22/21 17:51 Temperature Pulse Rate 65 73 78 Respiratory Rate 20 20 Blood Pressure Pulse Oximetry 97 01/22/21 17:53 01/22/21 17:54 01/22/21 18:00 Temperature 98.3 F Pulse Rate 95 83 77 Respiratory Rate 20 20 20 Blood Pressure 132/94 H Pulse Oximetry 98 01/22/21 20:00 01/22/21 21:27 01/22/21 21:30 Temperature 97.8 F 97.2 F L Pulse Rate 57 L 52 L 53 L Respiratory Rate 20 20 20 Blood Pressure 112/65 99/63 L Pulse Oximetry 96 97 01/22/21 21:55 01/22/21 22:28 01/22/21 22:30 Temperature Pulse Rate 53 L 53 L 55 L Respiratory Rate 20 20 Blood Pressure Pulse Oximetry 98 01/22/21 22:59 01/22/21 23:34 01/23/21 00:00 Temperature 97.3 F L Pulse Rate 57 L 53 L 51 L Respiratory Rate 20 20 Blood Pressure 106/73 Pulse Oximetry 95 95 01/23/21 00:20 01/23/21 02:00 01/23/21 04:00 Temperature 97.6 F 97.5 F L Pulse Rate 56 L 53 L 50 L Respiratory Rate 20 20 20 Blood Pressure 91/60 L 97/58 L Pulse Oximetry 95 93 01/23/21 04:11 01/23/21 04:12 01/23/21 04:27 Temperature Pulse Rate 51 L 51 L 51 L Respiratory Rate 20 20 Blood Pressure Pulse Oximetry 93 01/23/21 04:37 01/23/21 04:47 01/23/21 05:26 Temperature Pulse Rate 77 69 54 L Respiratory Rate 21 H 20 Blood Pressure Pulse Oximetry 94 01/23/21 06:00 01/23
[2021-01-23 17:15] LABS: Glucose Point of Care 151 mg/dl (65-105)
[2021-01-23 22:50] LABS: Glucose Point of Care 146 mg/dl (65-105)
[2021-01-24] VITALS (38 sets, daily range): BP systolic 108–182; BP diastolic 72–88; PULSE 43–110; RESP 16–22; TEMP 36.2–36.8; O2SAT 88–96
[2021-01-24] MEDS: AMPICILLIN SULB 3 GM/NS 100 ML 3 GM/100 ML VIAL IVPB ×5 (00:15→23:26)
[2021-01-24] MEDS: PROPOFOL IV EMULSION 100 ML 3.28 MG IV CONT (03:12)
[2021-01-24 04:23] LABS: Alveolar/Arterial O2 Gradient 405.8 mmHg; Base Excess ABG 2.7 mEq/l (+/-2.0); Carboxyhemoglobin 0.1 % THb (0-2.0); Fractional Inspired Oxygen 80 %; HCO3 ABG 26.6 mEq/l (22.0-26.0); Methemoglobin ABG 0.4 %THb (0-1.5); Oxygen Content ABG 19.5 %vol (16.0-22.0); Oxygen Saturation ABG 98.6 % (95.0-100.0); Oxyhemoglobin 97.7 % THb (90.0-100.0); PCO2 ABG 38.6 mmHg (35.0-45.0); PO2 ABG 124.1 mmHg (80.0-100.0); PO2 FiO2 Ratio Arterial Blood 1.55 %; Reduced Hemoglobin 1.8 %THb (0-5.0); Total Hemoglobin 14.1 g/dL (12.0-18.0); pH ABG 7.456 (7.350-7.450)
[2021-01-24 04:24] LABS: Device VENTILATOR; Modified Allen's Test Pass; Site Drawn RIGHT RADIAL
[2021-01-24 04:25] LABS: Arterial Blood Gas PEEP 10 cmH2O; Arterial Blood Gas Tidal Volume 450 ml; Arterial Blood Gas Vent Mode CMV; Arterial Blood Gas Ventilator rate 16 /MIN
[2021-01-24 04:39] LABS: Hematocrit 39.4 % (42.0-52.0); Mean Corpuscular Hemoglobin 28.4 pg (26-34); Mean Corpuscular Volume 86.2 fl (80-100); Platelet Count Result 436 k/mm3 (150-375); Red Blood Count 4.57 M/mm3 (4.6-6.20); Red Cell Distribution Width 13.1 % (11.5-14.5); White Blood Count 17.7 K/mm3 (4.5-10.0)
[2021-01-24 04:49] LABS: Alanine Aminotransferase 51 U/L (4-50); Albumin Level 3.4 g/dL (3.5-5.1); Alkaline Phosphatase 81 U/L (38-126); Anion Gap 11 mmol/L (8-16); Aspartate Amino Transferase 50 U/L (17-59); Bilirubin,Total 0.7 mg/dL (0.2-1.3); Blood Urea Nitrogen 21 mg/dL (9-20); Calcium 9.2 mg/dL (8.4-10.2); Carbon Dioxide 26 mmol/L (22-30); Chloride 103 mmol/L (98-107); Estimated CRCL calculation 117 ml/min; Estimated Glomerular Filt Rate > 60; Glucose 119 mg/dL (65-110); Magnesium 2.4 mg/dL (1.6-2.3); Potassium 4.3 mmol/L (3.4-5.0); Sodium 140 mmol/L (137-145)
[2021-01-24] MEDS: CLINDAMYCIN 900 MG/D5W 50 ML 900 MG/50 ML PIGGYBACK 50 MG IVPB ×3 (06:07→22:05)
--- NOTE | 2021-01-24 08:27 | WPDINTPN ---
Progress Note: A&P Assessment and Plan (1) Acute respiratory failure: Code(s): J96.00 - Acute respiratory failure, unspecified whether with hypoxia or hypercapnia Status: Acute Assessment and Plan: acute respiratory failure and sepsis secondary to supraglottic airway obstruction from epiglottitis, odontogenic infection of left mandibular area and abscess, edema, pharyngitis 01/22 status post incision and drainage by ENT intubated with size 6 ET tube with fiberoptic. Continue full mechanical ventilation support to prevent hypoxemia/hypercarbia and end organ damage. Ventilator settings reviewed decrease tidal volume to 420. FiO2 is at 100% and PEEP is 10. Patient had leak around his cough and I injected additional air in the cuff which corrected continue sedation due to compromised airway reviewed ABG and PCXR. chest x-ray shows some infiltrates which may suggest pneumonia. 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 Status: Acute (4) Odontogenic infection of jaw: Code(s): M27.2 - Inflammatory conditions of jaws Status: Acute (5) Infection of supraglottis (throat): Code(s): J04.30 - Supraglottitis, unspecified, without obstruction Status: Acute (6) Pharyngitis: Code(s): J02.9 - Acute pharyngitis, unspecified Status: Acute (7) Epiglottitis: Code(s): J05.10 - Acute epiglottitis without obstruction Status: Acute Additional Plan DVT prophylaxis - Lovenox and SCDs Stress ulcer prophylaxis - Pepcid Nutrition - continue tube feed SSI to monitor sugars Code Status - Full Code Total Critical Care Time - 30 minutes Due to a high probability of clinically significant, life threatening deterioration, the patient required my highest level of preparedness to intervene emergently and I personally spent this critical care time directly and personally managing the patient. This critical care time included obtaining a history; examining the patient; pulse oximetry; ordering and review of studies; arranging urgent treatment with development of a management plan; evaluation of patient's response to treatment; frequent reassessment; and discussions with other providers. It was exclusive of separately billable procedures and treating other patients and teaching time. Please see Assessment and Plan section and the rest of the note for further information on patient assessment and treatment Subjective Date/time seen: 01/24/21 Overnight events reviewed. Afebrile Continues to be on mechanical ventilation Continues to be on Sedation patient had a sedation holiday done this morning and patient became a synchronous with the ventilator with coughing bouts and desatted. Patient was reSedated. FiO2 had to be increased to 100% Vitals acceptable Review of Systems Review of Systems: ROS unobtainable: Yes unobtainable due to endotracheal tube and unobtainable due to medical condition Exam Narrative: General: Pt is sedated, intubated and on mechanical ventilation Lungs/Chest: Trachea central Coarse BS B/L, No crackles or wheezing. cuff leak present which was fixed by injecting more air in the ET tube cuff Cardiac: RRR. Normal S1 S2. No murmurs Circulation: Pedal pulses are intact and symmetrical. Abdomen: Decreased bowel sounds. Obese. Soft. NT. ND. Extremities: No clubbing, cyanosis or edema. Warm : Fraire in place Neurologic: Unable to assess due to sedation. PERRL HEENT: patient has a size 6 ET tube, he has a oral airway in dc
[2021-01-24] MEDS: ENOXAPARIN 40 MG/0.4 ML SYRINGE SUB-Q (08:43)
[2021-01-24] MEDS: LACTATED RINGERS 1,000 ML 50 ML IV CONT (08:43)
[2021-01-24] MEDS: FAMOTIDINE 20 MG/2 ML VIAL IV PUSH ×2 (08:43→21:00)
[2021-01-24] MEDS: MINERAL OIL/WHITE PETROLATUM OINTMENT 1 APPLIC EACH EYE ×2 (08:43→21:00)
[2021-01-24] MEDS: MIDAZOLAM 100MG/NS 100ML(*CRX) 100 MG/100 ML BAG IV CONT (11:14)
[2021-01-24 11:28] LABS: Glucose Point of Care 126 mg/dl (65-105)
[2021-01-24] MEDS: PROPOFOL IV EMULSION 100 ML 9.83 MG IV CONT (14:31)
[2021-01-24] MEDS: FENTANYL 2,500MCG/NS250ML(*CRX 2,500 MCG/250 ML BAG 10 MCG IV CONT (16:07)
[2021-01-24 17:14] LABS: Glucose Point of Care 139 mg/dl (65-105)
[2021-01-24] MEDS: PROPOFOL IV EMULSION 100 ML 13.1 MG IV CONT (22:00)
[2021-01-24 23:38] LABS: Glucose Point of Care 136 mg/dl (65-105)
[2021-01-25] VITALS (36 sets, daily range): BP systolic 106–128; BP diastolic 64–98; PULSE 43–120; RESP 10–25; TEMP 36.2–36.9; O2SAT 91–96; BMI 40.3
[2021-01-25] MEDS: LACTATED RINGERS 1,000 ML 50 ML IV CONT ×2 (04:09→23:05)
[2021-01-25 04:50] LABS: Hematocrit 39.2 % (42.0-52.0); Hemoglobin 12.8 g/dL (14.0-18.0); Mean Corpuscular HGB Conc 32.7 g/dl (32-36); Mean Corpuscular Hemoglobin 29.2 pg (26-34); Mean Corpuscular Volume 89.3 fl (80-100); Mean Platelet Volume 9.8 fl (7.4-10.4); Platelet Count Result 429 k/mm3 (150-375); Red Blood Count 4.39 M/mm3 (4.6-6.20); Red Cell Distribution Width 13.2 % (11.5-14.5); White Blood Count 17.6 K/mm3 (4.5-10.0)
[2021-01-25 05:11] LABS: Alveolar/Arterial O2 Gradient 528.8 mmHg; Base Excess ABG 3.1 mEq/l (+/-2.0); Carboxyhemoglobin 0.3 % THb (0-2.0); Fractional Inspired Oxygen 90 %; HCO3 ABG 27.3 mEq/l (22.0-26.0); Methemoglobin ABG 0.3 %THb (0-1.5); Oxygen Saturation ABG 95.1 % (95.0-100.0); Oxyhemoglobin 93.6 % THb (90.0-100.0); PCO2 ABG 40.2 mmHg (35.0-45.0); PO2 ABG 71.7 mmHg (80.0-100.0); Reduced Hemoglobin 5.8 %THb (0-5.0); Total Hemoglobin 14.4 g/dL (12.0-18.0)
[2021-01-25 05:12] LABS: Device VENTILATOR; Modified Allen's Test Pass; Site Drawn RIGHT RADIAL
[2021-01-25 05:13] LABS: Arterial Blood Gas PEEP 12 cmH2O; Arterial Blood Gas Tidal Volume 420 ml; Arterial Blood Gas Vent Mode CMV; Arterial Blood Gas Ventilator rate 16 /MIN
[2021-01-25 05:19] LABS: Alanine Aminotransferase 68 U/L (4-50); Albumin Level 3.3 g/dL (3.5-5.1); Alkaline Phosphatase 78 U/L (38-126); Anion Gap 9 mmol/L (8-16); Aspartate Amino Transferase 45 U/L (17-59); Bilirubin,Total 0.5 mg/dL (0.2-1.3); Blood Urea Nitrogen 27 mg/dL (9-20); Calcium 9.1 mg/dL (8.4-10.2); Carbon Dioxide 28 mmol/L (22-30); Chloride 104 mmol/L (98-107); Estimated CRCL calculation 123 ml/min; Estimated Glomerular Filt Rate > 60; Glucose 119 mg/dL (65-110); Magnesium 2.5 mg/dL (1.6-2.3); Potassium 4.4 mmol/L (3.4-5.0); Sodium 141 mmol/L (137-145)
[2021-01-25] MEDS: PROPOFOL IV EMULSION 100 ML 6.55 MG IV CONT (05:39)
[2021-01-25] MEDS: CLINDAMYCIN 900 MG/D5W 50 ML 900 MG/50 ML PIGGYBACK 50 MG IVPB ×3 (05:40→23:05)
[2021-01-25] MEDS: AMPICILLIN SULB 3 GM/NS 100 ML 3 GM/100 ML VIAL IVPB ×4 (05:40→23:05)
--- NOTE | 2021-01-25 08:45 | PC.NURSE ---
updated on plan of care. Consent received for CT neck with contrast.
--- NOTE | 2021-01-25 08:49 | WPDINTPN ---
Progress Note: A&P Assessment and Plan (1) Acute respiratory failure: Code(s): J96.00 - Acute respiratory failure, unspecified whether with hypoxia or hypercapnia Status: Acute Assessment and Plan: acute respiratory failure and sepsis secondary to supraglottic airway obstruction from epiglottitis, odontogenic infection of left mandibular area and abscess, edema, pharyngitis 01/22 status post incision and drainage by ENT intubated with size 6 ET tube with fiberoptic. Continue full mechanical ventilation support to prevent hypoxemia/hypercarbia and end organ damage. Ventilator settings reviewed decrease tidal volume to 420. FiO2 is at 80% and PEEP is 12. 8/ CT IMPRESSION: 1. Possible residual abscess in the left floor the mouth, assessment difficult without intravenous contrast. 2. Dependent airspace opacities of the lungs, consistent with atelectasis versus pneumonia. 3. Small pleural effusions. continue sedation due to compromised airway reviewed ABG and PCXR. continue IV clindamycin and Unasyn IV Decadron I discussed with EN. Dr Goss. He wants to repeat CT scan of neck with the contrast to evaluate the abscess and will consider draining and again depending on the findings. recommend continuing antibiotics and steroids at this time. 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 Status: Acute (4) Odontogenic infection of jaw: Code(s): M27.2 - Inflammatory conditions of jaws Status: Acute (5) Infection of supraglottis (throat): Code(s): J04.30 - Supraglottitis, unspecified, without obstruction Status: Acute (6) Pharyngitis: Code(s): J02.9 - Acute pharyngitis, unspecified Status: Acute (7) Epiglottitis: Code(s): J05.10 - Acute epiglottitis without obstruction Status: Acute Additional Plan DVT prophylaxis - Lovenox and SCDs Stress ulcer prophylaxis - Pepcid Nutrition - continue tube feed SSI to monitor sugars Code Status - Full Code Total Critical Care Time - 31 minutes Due to a high probability of clinically significant, life threatening deterioration, the patient required my highest level of preparedness to intervene emergently and I personally spent this critical care time directly and personally managing the patient. This critical care time included obtaining a history; examining the patient; pulse oximetry; ordering and review of studies; arranging urgent treatment with development of a management plan; evaluation of patient's response to treatment; frequent reassessment; and discussions with other providers. It was exclusive of separately billable procedures and treating other patients and teaching time. Please see Assessment and Plan section and the rest of the note for further information on patient assessment and treatment Subjective Date/time seen: 01/25/21 08:49 Overnight events reviewed. Afebrile Continues to be on mechanical ventilation Follows commands on holding sedation Vitals acceptable Review of Systems Review of Systems: ROS unobtainable: Yes unobtainable due to endotracheal tube and unobtainable due to medical condition Exam Narrative: General: Pt is sedated, intubated and on mechanical ventilation Lungs/Chest: Trachea central Coarse BS B/L, No crackles or wheezing. cuff leak Cardiac: RRR. Normal S1 S2. No murmurs Circulation: Pedal pulses are intact and symmetrical. Abdomen: Decreased bowel sounds. Obese. Soft. NT. ND. Extremities: No clubbing, cyanosis or edema. Warm : Fraire in place Neurologic: patient is sedated but on holding sedation he follows exam and nodes his head appropriately, moves all 4 extremities PERRL HEENT: patient has a size 6 E
--- NOTE | 2021-01-25 09:30 | PC.NURSE ---
Patient taken to CT via bed with RN, Rt and tech to bedside.
--- NOTE | 2021-01-25 10:00 | PC.NURSE ---
Patient returned to bedside without issue.
[2021-01-25] MEDS: METOCLOPRAMIDE HCL 10 MG/10 ML SOLN UDC 5 MG PO ×4 (11:05→23:06)
[2021-01-25] MEDS: ENOXAPARIN 40 MG/0.4 ML SYRINGE SUB-Q (11:08)
[2021-01-25] MEDS: FAMOTIDINE 20 MG/2 ML VIAL IV PUSH ×2 (11:08→20:09)
[2021-01-25] MEDS: MINERAL OIL/WHITE PETROLATUM OINTMENT 1 APPLIC EACH EYE ×2 (11:09→20:09)
--- NOTE | 2021-01-25 11:23 | PCDIET ---
Nutrition Follow-Up Complete: Nutrition Diagnosis: Inadequate oral intake related to oral intubation as evidenced by NPO status. Nutrition Goal: Patient to meet estimated nutritional needs. Goal in progress. Tube feedings held for 500mL residual overnight and remain on hold for CT and possible need for drainage of residual abscess. Reglan initiated. Would expect tube feedings to resume once any procedures complete. Glucerna 1.2 at 60mL/hr will provide 1584kcal (1757kcal with Propofol at current rate), 79g protein and 1062mL free water over 22 hours/day. Last recorded weight is 127.5 kg which is up from last review. +I/O. Bowel Motility: No documented BM as of yet. Labs Reviewed: WBC (17.6), RBC (4.39), Hgb (12.8), Hct (39.2), Glu (119), BUN (27), Alb (3.3), Mg (2.5) Meds Noted: Unasyn, Decadron, Versed, Cleocin, Pepcid, Reglan, LR at 50mL/hr, Propofol (rate of 6.55mL/hr provides 173kcal per day) Additional Notes: No documented skin breakdown. Will continue to monitor with same goal. Nutrition Monitoring and Evaluation: Follow up every Monday/Monday.
--- NOTE | 2021-01-25 13:29 | PC.NURSE ---
Updated spouse on ENT's plan of care.
[2021-01-25] MEDS: MIDAZOLAM 100MG/NS 100ML(*CRX) 100 MG/100 ML BAG IV CONT (13:40)
--- NOTE | 2021-01-25 15:29 | WPDPN ---
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 Status: Acute Assessment and Plan: - dexamethasone for airway (2) Epiglottitis: Code(s): J05.10 - Acute epiglottitis without obstruction Status: Acute Assessment and Plan: -continued intubation until abscess is fully addressed and airway becomes patent (3) Odontogenic infection of jaw: Code(s): M27.2 - Inflammatory conditions of jaws Status: Acute Assessment and Plan: continue of management by ENT for I&D - antibiotics: Unasyn, clindamycin - IV fluids: LR - checking blood cultures (4) Acute respiratory failure: Code(s): J96.00 - Acute respiratory failure, unspecified whether with hypoxia or hypercapnia Status: Acute Assessment and Plan: intubated airway compromise by abscess - sedation: Fentanyl, Versed, propofol (5) Infection of supraglottis (throat): Code(s): J04.30 - Supraglottitis, unspecified, without obstruction Status: Acute Assessment and Plan: likely odontoid in origin (6) Sepsis: Code(s): A41.9 - Sepsis, unspecified organism Status: Acute Assessment and Plan: secondary to odontogenic abscess (7) Pharyngitis: Code(s): J02.9 - Acute pharyngitis, unspecified Status: Acute Assessment and Plan: - Additional Plan - diet: Tube feeds - code status: Full code - DVT prophylaxis: Lovenox - GI prophylaxis: Pepcid - disposition: Continue ICU management while intubated Time Spent With Patient Time with patient: 15 - 25 minutes Subjective Date/time seen: 01/25/21 15:29 Patient examined. He is going for repeat CT scan to evaluate abscess for possible repeat I&D. he is status post I&D on 01/22/[address] Goss. Review of Systems Review of Systems: ROS unobtainable: Yes unobtainable due to endotracheal tube Exam Narrative: - GENERAL: intubated, sedated - EYES: PERRL - HENT: Moist mucous membranes. ET tube in place. OGT in place. thick neck and unable to evaluate abscess - LUNGS: coarse lung sounds throughout. - CARDIOVASCULAR: Regular rate and rhythm. No murmur. No JVD. - ABDOMEN: Soft, non-tender and non-distended. No palpable masses. - : Fraire in place - EXTREMITIES: No edema. Peripheral pulses 2+. Non-tender. - NEUROLOGIC: sedated, unable to assess - PSYCHIATRIC: unable to assess Objective Data Vital Signs Vital Signs: Vital Signs - 24 hr 01/24/21 15:30 01/24/21 16:00 01/24/21 16:07 Temperature 36.2 C L Pulse Rate 47 L 44 L Respiratory Rate 18 18 Blood Pressure 116/73 Pulse Oximetry 94 93 01/24/21 16:55 01/24/21 18:00 01/24/21 20:00 Temperature 36.6 C Pulse Rate 48 L 43 L 48 L Respiratory Rate 18 16 Blood Pressure 113/74 122/80 Pulse Oximetry 94 94 93 01/24/21 20:07 01/24/21 21:12 01/24/21 22:00 Temperature 36.3 C L Pulse Rate 62 62 63 Respiratory Rate 18 20 Blood Pressure 121/77 Pulse Oximetry 94 94 95 01/24/21 23:18 01/24/21 23:39 01/25/21 00:00 Temperature 36.2 C L Pulse Rate 52 L 48 L 47 L Respiratory Rate 20 18 Blood Pressure 112/64 Pulse Oximetry 96 94 94 01/25/21 00:09 01/25/21 00:10 01/25/21 02:00 Temperature 36.3 C L Pulse Rate 50 L 50 L 46 L Respiratory Rate 19 19 19 Blood Pressure 119/66 Pulse Oximetry 94 01/25/21 02:15 01/25/21 03:18 01/25/21 04:00 Temperature 36.2 C L Pulse Rate 57 L 49 L 44 L Respiratory Rate 20 18 Blood Pressure 122/69 Pulse Oximetry 95 96 96 01/25/21 04:05 01/25/21 04:31 01/25/21 05:00 Temperature 36.9 C Pulse Rate 44 L 55 L Respiratory Rate 18 Blood Pressure Pulse Oximetry 96 01/25/21 05:39 01/25/21 05:43 01/25/21 05:46 Temperature Pulse Rate 46 L 43 L 45 L Respiratory Rate 19 19 19 Blood Pressure Pulse Oximetry 01/25/21 06:00 01/25/21 08:00 01/25/21 08:35 Temperature 36.5 C Pulse Rate 50 L
--- NOTE | 2021-01-25 16:11 | PM.PNGS ---
Progress Note: A&P Assessment and Plan (1) Abscess, neck: Code(s): L02.11 - Cutaneous abscess of neck Status: Acute Assessment and Plan: Plan is for the OR a.m. of 01/26/2021 for transoral incision and drainage of left neck abscess. Unable to reach the abscess transorally will convert to a transcervical approach. Risks should be discuss with the patient's caregivers /family/POA including bleeding infection need for further procedures. I would not routinely gives steroids given that we have a known source. However, I would give 1 dose of Decadron 8-10 mg prior. If the patient has been on clindamycin throughout this were deal out recommend changing to something slightly broader such as Unasyn. If he is on Unasyn that she be appropriate for the time being. I will culture whatever purulence is found. Subjective Subjective Date/Time Seen: 01/25/21 16:11 Objective Data Vital Signs Vital Signs: Vital Signs - 24 hr 01/24/21 16:55 01/24/21 18:00 01/24/21 20:00 Temperature 36.6 C Pulse Rate 48 L 43 L 48 L Respiratory Rate 18 16 Blood Pressure 113/74 122/80 Pulse Oximetry 94 94 93 01/24/21 20:07 01/24/21 21:12 01/24/21 22:00 Temperature 36.3 C L Pulse Rate 62 62 63 Respiratory Rate 18 20 Blood Pressure 121/77 Pulse Oximetry 94 94 95 01/24/21 23:18 01/24/21 23:39 01/25/21 00:00 Temperature 36.2 C L Pulse Rate 52 L 48 L 47 L Respiratory Rate 20 18 Blood Pressure 112/64 Pulse Oximetry 96 94 94 01/25/21 00:09 01/25/21 00:10 01/25/21 02:00 Temperature 36.3 C L Pulse Rate 50 L 50 L 46 L Respiratory Rate 19 19 19 Blood Pressure 119/66 Pulse Oximetry 94 01/25/21 02:15 01/25/21 03:18 01/25/21 04:00 Temperature 36.2 C L Pulse Rate 57 L 49 L 44 L Respiratory Rate 20 18 Blood Pressure 122/69 Pulse Oximetry 95 96 96 01/25/21 04:05 01/25/21 04:31 01/25/21 05:00 Temperature 36.9 C Pulse Rate 44 L 55 L Respiratory Rate 18 Blood Pressure Pulse Oximetry 96 01/25/21 05:39 01/25/21 05:43 01/25/21 05:46 Temperature Pulse Rate 46 L 43 L 45 L Respiratory Rate 19 19 19 Blood Pressure Pulse Oximetry 01/25/21 06:00 01/25/21 08:00 01/25/21 08:35 Temperature 36.5 C Pulse Rate 50 L 54 L 120 H Respiratory Rate 18 20 25 H Blood Pressure 123/70 116/98 H Pulse Oximetry 95 96 01/25/21 08:58 01/25/21 10:00 01/25/21 11:34 Temperature Pulse Rate 57 L 57 L 43 L Respiratory Rate 14 Blood Pressure 126/85 Pulse Oximetry 94 93 94 01/25/21 12:00 01/25/21 13:37 01/25/21 13:40 Temperature 36.3 C L Pulse Rate 47 L 47 L 52 L Respiratory Rate 12 12 15 Blood Pressure 112/78 Pulse Oximetry 91 01/25/21 15:18 Temperature Pulse Rate 52 L Respiratory Rate Blood Pressure Pulse Oximetry 96 Intake/Output Intake/Output: Intake & Output 01/22/21 01/23/21 01/24/21 01/25/21 23:59 23:59 23:59 23:59 Intake Total 1340.0 2956 3222 2310 Output Total 1850 1325 725 450 Balance -510.0 1631 2497 1860 Meds/Results Medications: Active Medications Generic Name Dose Route Start Last Admin Trade Name Freq PRN Reason Stop Dose Admin Acetaminophen 1,000 mg 01/21/21 09:26 Acetaminophen 500 Mg Tablet PO Q6H PRN Mild Pain (1-3) or Fever Dexamethasone Sodium Phosphate 10 mg 01/22/21 17:00 01/25/21 11:08 Dexamethasone Sod Phos Inj 10 Mg/Ml 1 Ml Vial IV PUSH 10 mg Q6H JANEY Administration Dextrose 12.5 gm 01/22/21 14:42 Dextrose 50% 25 Gm/50 Ml Syringe IV PUSH PRN PRN Hypoglycemia Protocol Enoxaparin Sodium 40 mg 01/23/21 09:00 01/25/21 11:08 Enoxaparin 40 Mg/0.4 Ml Syringe SUB-Q 40 mg DAILY JANEY Administration Famotidine 20 mg 01/21/21 09:00 01/25/21 11:08 Famotidine 20 Mg/2 Ml Vial IV PUSH 20 mg Q12HR JANEY Administration Glucagon 1 mg 01/22/21 14:42 Glucagon For Inj 1 Mg Vial IM PRN PRN Hypoglycemia Protocol Glucose 15 gm 12/26
[2021-01-25] MEDS: FENTANYL 2,500MCG/NS250ML(*CRX 2,500 MCG/250 ML BAG 10 MCG IV CONT (17:18)
[2021-01-25 17:42] LABS: Glucose Point of Care 120 mg/dl (65-105)
[2021-01-25 17:53] LABS: Glucose Point of Care 137 mg/dl (65-105)
[2021-01-25] MEDS: PROPOFOL IV EMULSION 100 ML 8.19 MG IV CONT (20:02)
[2021-01-25 23:22] LABS: Glucose Point of Care 131 mg/dl (65-105)
[2021-01-26] VITALS (40 sets, daily range): BP systolic 102–126; BP diastolic 65–85; PULSE 40–111; RESP 14–30; TEMP 36.6–37.1; O2SAT 92–97
--- NOTE | 2021-01-26 01:58 | PC.NURSE ---
Patient agitated post BM cleanup. Sedation titrated for -2 RASS.
[2021-01-26] MEDS: PROPOFOL IV EMULSION 100 ML 8.19 MG IV CONT (04:09)
[2021-01-26 04:13] LABS: Alveolar/Arterial O2 Gradient 461.5 mmHg; Base Excess ABG 2.4 mEq/l (+/-2.0); Carboxyhemoglobin 0.3 % THb (0-2.0); Fractional Inspired Oxygen 80 %; HCO3 ABG 26.5 mEq/l (22.0-26.0); Methemoglobin ABG 0.4 %THb (0-1.5); Oxygen Content ABG 19.7 %vol (16.0-22.0); Oxygen Saturation ABG 94.2 % (95.0-100.0); Oxyhemoglobin 92.9 % THb (90.0-100.0); PCO2 ABG 39.3 mmHg (35.0-45.0); PO2 ABG 67.6 mmHg (80.0-100.0); PO2 FiO2 Ratio Arterial Blood 0.84 %; Reduced Hemoglobin 6.4 %THb (0-5.0); Total Hemoglobin 15.1 g/dL (12.0-18.0); pH ABG 7.447 (7.350-7.450)
[2021-01-26 04:15] LABS: Arterial Blood Gas PEEP 12 cmH2O; Arterial Blood Gas Tidal Volume 420 ml; Arterial Blood Gas Vent Mode CMV; Arterial Blood Gas Ventilator rate 16 /MIN; Device VENTILATOR; Modified Allen's Test Pass; Site Drawn LEFT RADIAL
[2021-01-26] MEDS: CLINDAMYCIN 900 MG/D5W 50 ML 900 MG/50 ML PIGGYBACK 50 MG IVPB ×3 (05:17→22:10)
[2021-01-26] MEDS: AMPICILLIN SULB 3 GM/NS 100 ML 3 GM/100 ML VIAL IVPB ×4 (05:17→23:10)
[2021-01-26 05:59] LABS: Alanine Aminotransferase 65 U/L (4-50); Albumin Level 3.2 g/dL (3.5-5.1); Alkaline Phosphatase 78 U/L (38-126); Anion Gap 11 mmol/L (8-16); Aspartate Amino Transferase 35 U/L (17-59); Bilirubin,Total 0.4 mg/dL (0.2-1.3); Blood Urea Nitrogen 26 mg/dL (9-20); Calcium 8.7 mg/dL (8.4-10.2); Carbon Dioxide 24 mmol/L (22-30); Chloride 105 mmol/L (98-107); Estimated CRCL calculation 152 ml/min; Estimated Glomerular Filt Rate > 60; Glucose 107 mg/dL (65-110); Magnesium 2.3 mg/dL (1.6-2.3); Potassium 4.6 mmol/L (3.4-5.0); Sodium 140 mmol/L (137-145)
[2021-01-26 06:03] LABS: Hematocrit 39.1 % (42.0-52.0); Mean Corpuscular HGB Conc 33.2 g/dl (32-36); Mean Corpuscular Hemoglobin 28.8 pg (26-34); Mean Corpuscular Volume 86.5 fl (80-100); Platelet Count Result 453 k/mm3 (150-375); Red Blood Count 4.52 M/mm3 (4.6-6.20); Red Cell Distribution Width 12.9 % (11.5-14.5); White Blood Count 19.1 K/mm3 (4.5-10.0)
[2021-01-26] MEDS: MIDAZOLAM 100MG/NS 100ML(*CRX) 100 MG/100 ML BAG 6 MG IV CONT ×2 (06:30→23:16)
--- NOTE | 2021-01-26 07:03 | PM.IMHP ---
H&P: HPI History of Present Illness Date/Time: 01/26/21 07:03 Persistent left sided odontogenic abscess s/p I and D several days ago. Chief Complaint: Odontogenic abscess left, left neck abscess. [facility] Past Medical History Medical History (Updated 01/25/21 @ 16:11 by Salvador Limon MD) No pertinent past medical history Obesity Surgical History Surgical History Hx of vasectomy Family History Family History Mother Diabetes mellitus Social History Social History Smoking status: Never smoker Alcohol intake: never Substance use: never Living arrangements: with family Additional living arrangements comments: Lives in [place] with his and 4 children. Occupation/Education: occupation Gender identity (if verbalized by the patient): Male Spiritual care concerns: No Meds Home Medications and Allergies Home Medications Medication Instructions Recorded Confirmed Type tramadol 50 mg PO Q6H PRN 01/21/21 01/21/21 History Allergies Allergy/AdvReac Type Severity Reaction Status Date / Time No Known Allergies Allergy Verified 01/20/21 20:21 Vital Signs Vital Signs - 24 hr 01/25/21 08:00 01/25/21 08:35 01/25/21 08:58 Temperature 36.5 C Pulse Rate 54 L 120 H 57 L Respiratory Rate 20 25 H Blood Pressure 116/98 H Pulse Oximetry 96 94 01/25/21 10:00 01/25/21 11:34 01/25/21 12:00 Temperature 36.3 C L Pulse Rate 57 L 43 L 47 L Respiratory Rate 14 12 Blood Pressure 126/85 112/78 Pulse Oximetry 93 94 91 01/25/21 13:37 01/25/21 13:40 01/25/21 14:00 Temperature 36.2 C L Pulse Rate 47 L 52 L 47 L Respiratory Rate 12 15 14 Blood Pressure 117/79 Pulse Oximetry 95 01/25/21 15:18 01/25/21 16:00 01/25/21 16:58 Temperature 36.4 C L Pulse Rate 52 L 52 L 53 L Respiratory Rate 12 Blood Pressure 113/81 Pulse Oximetry 96 95 95 01/25/21 17:18 01/25/21 18:00 01/25/21 19:38 Temperature 36.3 C L Pulse Rate 53 L 46 L 76 Respiratory Rate 15 15 22 H Blood Pressure 106/76 Pulse Oximetry 95 01/25/21 20:00 01/25/21 20:02 01/25/21 20:15 Temperature 36.6 C Pulse Rate 67 64 64 Respiratory Rate 21 H 20 20 Blood Pressure 127/84 Pulse Oximetry 95 95 01/25/21 21:00 01/25/21 22:00 01/25/21 23:57 Temperature 36.4 C Pulse Rate 50 L 46 L 48 L Respiratory Rate 19 21 H Blood Pressure 128/79 Pulse Oximetry 95 95 95 01/26/21 00:00 01/26/21 00:06 01/26/21 01:42 Temperature 36.8 C Pulse Rate 46 L 53 L 60 Respiratory Rate 22 H Blood Pressure 121/74 Pulse Oximetry 95 96 94 01/26/21 02:00 01/26/21 03:14 01/26/21 04:00 Temperature 36.9 C Pulse Rate 55 L 49 L 56 L Respiratory Rate 22 H 20 18 Blood Pressure 120/76 119/74 Pulse Oximetry 92 94 94 01/26/21 04:09 01/26/21 05:24 01/26/21 05:25 Temperature Pulse Rate 50 L 47 L 46 L Respiratory Rate 20 19 20 Blood Pressure Pulse Oximetry 01/26/21 05:29 01/26/21 06:00 01/26/21 06:22 Temperature Pulse Rate 44 L 45 L 43 L Respiratory Rate 20 18 18 Blood Pressure 111/69 Pulse Oximetry 94 01/26/21 06:30 Temperature Pulse Rate 45 L Respiratory Rate 18 Blood Pressure Pulse Oximetry Exam Neck: Other: Mild left sided edema H&P: Results Labs Labs: Short CBC 01/26/21 Range/Units 04:58 WBC 19.1 H (4.5-10.0) K/mm3 Hgb 13.0 L (14.0-18.0) g/dL Hct 39.1 L (42.0-52.0) % Plt Count 453 H (150-375) k/mm3 BMP 01/26/21 04:58 Sodium 140 Potassium 4.6 Chloride 105 Carbon Dioxide 24 BUN 26 H Creatinine 0.80 Glucose 107 Calcium 8.7 Liver Function 01/26/21 Range/Units 04:58 Total Bilirubin 0.4 (0.2-1.3) mg/dL AST 35 (17-59) U/L ALT 65 H (4-50) U/L Alkaline Phosphatase 78 (38-126) U/L Albumin 3.2 L (3.5-5.1) g/dL A
--- NOTE | 2021-01-26 07:05 | WPDHPUPDATE1 ---
History and Physical Update Update Date/Time: 01/26/21 07:05 History and Physical has been reviewed, including an updated exam of the patient. There are NO changes in the patient's condition. Risks, benefits, and alternatives have been discussed and questions answered. Patient agrees to proceed with procedure.
--- NOTE | 2021-01-26 08:30 | PC.NURSE ---
Patient transported to OR via bed without issue. Dr. Ramos and KORIN Waldron at bedside.
--- NOTE | 2021-01-26 09:10 | WPDANESEPPF ---
Anes - Initial Pre Proc Eval Procedure: Operation Date: 01/22/21 13:00 Proposed Procedures p Incision And Drainage Throat And Mandible - Kwasi Goss MD Operation Date: 01/26/21 08:30 Proposed Procedures p Incision And Drainage Mandible - Salvador Limon MD Date/Time: 01/26/21 09:10 Surgeon: Yumi Mi PA-C Pre Op Diagnosis: Pharyngitis Patient Data Age: 35 Gender: M Height: 1.78 m Weight: 127.6 kg Last Vital Signs Temp 36.7 C 01/26/21 08:00 Pulse 44 L 01/26/21 08:00 Resp 14 01/26/21 08:00 BP 126/85 01/26/21 08:00 Pulse Ox 95 01/26/21 08:00 Allergies Allergy/AdvReac Type Severity Reaction Status Date / Time No Known Allergies Allergy Verified 01/20/21 20:21 Home Medications Medication Instructions Recorded Confirmed Type tramadol 50 mg PO Q6H PRN 01/21/21 01/21/21 History Laboratory Tests 01/25/21 01/25/21 01/25/21 12:57 17:51 23:15 WBC RBC Hgb Hct MCV MCH MCHC RDW Plt Count MPV Puncture Site ABG pH ABG pCO2 ABG pO2 ABG PO2/FiO2 Ratio ABG HCO3 ABG O2 Saturation ABG O2 Content ABG Base Excess A-a Gradient Oxyhemoglobin Carboxyhemoglobin Methemoglobin Reduced Hemoglobin Total Hemoglobin O2 Delivery Device O2 Liters/Min Minute Volume Vent Rate Vent Mode FiO2 Tidal Volume PEEP Peak Inspir Pressure Pressure Support Sodium Potassium Chloride Carbon Dioxide Anion Gap BUN Creatinine Estim Creat Clear Calc Estimated GFR Glucose POC Capillary Glucose 120 mg/dl H mg/dl 137 mg/dl H mg/dl 131 mg/dl H mg/dl (65-105) (65-105) (65-105) Calcium Magnesium Total Bilirubin AST ALT Alkaline Phosphatase Total Protein Albumin 01/26/21 01/26/21 01/26/21 03:58 04:58 04:58 WBC 19.1 K/mm3 H K/mm3 (4.5-10.0) RBC 4.52 M/mm3 L M/mm3 (4.6-6.20) Hgb 13.0 g/dL L g/dL (14.0-18.0) Hct 39.1 % L % (42.0-52.0) MCV 86.5 fl fl (80-100) MCH 28.8 pg pg (26-34) MCHC 33.2 g/dl g/dl (32-36) RDW 12.9 % % (11.5-14.5) Plt Count 453 k/mm3 H k/mm3 (150-375) MPV 10.0 fl fl (7.4-10.4) Puncture Site Left radial ABG pH 7.447 (7.350-7.450) ABG pCO2 39.3 mmHg mmHg (35.0-45.0) ABG pO2 67.6 mmHg L mmHg (80.0-100.0) ABG PO2/FiO2 Ratio 0.84 % % ABG HCO3 26.5 mEq/l H mEq/l (22.0-26.0) ABG O2 Saturation 94.2 % L % (95.0-100.0) ABG O2 Content 19.7 %vol %vol (16.0-22.0) ABG Base Excess 2.4 mEq/l mEq/l (+/-2.0) A-a Gradient 461.5 mmHg mmHg Oxyhemoglobin 92.9 % THb % THb (90.0-100.0) Carboxyhemoglobin 0.3 % THb % THb (0-2.0) Methemoglobin 0.4 %THb %THb (0-1.5) Reduced Hemoglobin 6.4 %THb H %THb (0-5.0) Total Hemoglobin 15.1 g/dL g/dL (12.0-18.0) O2 Delivery Device Ventilator O2 Liters/Min Not Reportable Minute Volume Not Reportable Vent Rate 16 /MIN /MIN Vent Mode Cmv FiO2 80 % % Tidal Volume 420 ml ml PEEP 12 cmH2O cmH2O Peak Inspir Pressure Not Reportable Pressure Support Not Reportable Sodium 140 mmol/L mmol/L (137-145) Potassium
--- NOTE | 2021-01-26 09:30 | PC.NURSE ---
Patient returned to bedside sedated and paralyzed per Anesthesia. ICU sedation restarted.
[2021-01-26] MEDS: FAMOTIDINE 20 MG/2 ML VIAL IV PUSH ×2 (10:11→20:21)
[2021-01-26] MEDS: ENOXAPARIN 40 MG/0.4 ML SYRINGE SUB-Q (10:12)
[2021-01-26] MEDS: MINERAL OIL/WHITE PETROLATUM OINTMENT 1 APPLIC EACH EYE ×2 (10:12→20:22)
--- NOTE | 2021-01-26 10:33 | W.PM.PROC2 ---
Procedure Note - Detailed Date of Procedure 01/26/21 Pre-op Diagnosis Left-sided odontogenic abscess / neck abscess Post-op Diagnosis same Procedure Performed transoral incision and drainage of left-sided neck abscess/ odontogenic abscess Surgeon Salvador Limon MD Indications see above Findings copious amounts of purulence from the left posterior inferior dentition already draining prior to incision incision made dissection carried down through the airway wound irrigated Description of Procedure patient was correctly identified and consent ICU. Patient marked. Brought to the operating room. Time-out performed. Patient moved prepped and draped for the aforementioned procedures. Mouthgag side biter placed open purulence being expressed already without incision from the left posterior inferior dentition You the 2nd molar. This was widened with an 11 blade in long Migd[place] forceps. Wound was dissected thoroughly to break up all loculations irrigated no further purulence noted glide scope performed airway appeared relatively normal tube changed. Care the patient turned over to Anesthesiology. Blood loss approximately 10 cc. I performed all dictated portions there were no immediate complications. Culture sent. Estimated Blood Loss 10 Urine Output 600 Drains No Packing No Pathology none sent Complications No immediate complications Condition stable Disposition ICU
--- NOTE | 2021-01-26 10:36 | PM.PNGS ---
Progress Note: A&P Assessment and Plan (1) Odontogenic infection of jaw: Code(s): M27.2 - Inflammatory conditions of jaws Status: Acute Assessment and Plan: Would recommend a short taper of Decadron q.8 hours for 24 hours An example would be 6 mg and 4 mg then 2 mg. the patient can be extubated as soon as he meets criteria for normal extubation, his airway looked relatively normal on exam in the operating room. Follow up cultures. Would recommend IV clindamycin or Unasyn until the patient is discharged. Recommend discharging on 7 days of Augmentin or clindamycin. The patient should follow up with his dentist as soon as possible for tooth removal. Would trend a daily white count while inpatient. (2) Abscess, neck: Code(s): L02.11 - Cutaneous abscess of neck Status: Acute Subjective Subjective Date/Time Seen: 01/26/21 10:36 Objective Data Vital Signs Vital Signs: Vital Signs - 24 hr 01/25/21 11:34 01/25/21 12:00 01/25/21 13:37 Temperature 36.3 C L Pulse Rate 43 L 47 L 47 L Respiratory Rate 12 12 Blood Pressure 112/78 Pulse Oximetry 94 91 01/25/21 13:40 01/25/21 14:00 01/25/21 15:18 Temperature 36.2 C L Pulse Rate 52 L 47 L 52 L Respiratory Rate 15 14 Blood Pressure 117/79 Pulse Oximetry 95 96 01/25/21 16:00 01/25/21 16:58 01/25/21 17:18 Temperature 36.4 C L Pulse Rate 52 L 53 L 53 L Respiratory Rate 12 15 Blood Pressure 113/81 Pulse Oximetry 95 95 01/25/21 18:00 01/25/21 19:38 01/25/21 20:00 Temperature 36.3 C L 36.6 C Pulse Rate 46 L 76 67 Respiratory Rate 15 22 H 21 H Blood Pressure 106/76 127/84 Pulse Oximetry 95 95 01/25/21 20:02 01/25/21 20:15 01/25/21 21:00 Temperature Pulse Rate 64 64 50 L Respiratory Rate 20 20 Blood Pressure Pulse Oximetry 95 95 01/25/21 22:00 01/25/21 23:57 01/26/21 00:00 Temperature 36.4 C 36.8 C Pulse Rate 46 L 48 L 46 L Respiratory Rate 19 21 H 22 H Blood Pressure 128/79 121/74 Pulse Oximetry 95 95 95 01/26/21 00:06 01/26/21 01:42 01/26/21 02:00 Temperature Pulse Rate 53 L 60 55 L Respiratory Rate 22 H Blood Pressure 120/76 Pulse Oximetry 96 94 92 01/26/21 03:14 01/26/21 04:00 01/26/21 04:09 Temperature 36.9 C Pulse Rate 49 L 56 L 50 L Respiratory Rate 20 18 20 Blood Pressure 119/74 Pulse Oximetry 94 94 01/26/21 05:24 01/26/21 05:25 01/26/21 05:29 Temperature Pulse Rate 47 L 46 L 44 L Respiratory Rate 19 20 20 Blood Pressure Pulse Oximetry 01/26/21 06:00 01/26/21 06:22 01/26/21 06:30 Temperature Pulse Rate 45 L 43 L 45 L Respiratory Rate 18 18 18 Blood Pressure 111/69 Pulse Oximetry 94 01/26/21 07:48 01/26/21 08:00 01/26/21 09:18 Temperature 36.7 C Pulse Rate 46 L 42 L 67 Respiratory Rate 14 Blood Pressure 126/85 Pulse Oximetry 94 95 94 01/26/21 09:30 01/26/21 09:45 01/26/21 09:55 Temperature Pulse Rate 87 111 H 110 H Respiratory Rate 17 25 H 30 H Blood Pressure Pulse Oximetry 01/26/21 10:00 01/26/21 10:10 Temperature Pulse Rate 73 70 Respiratory Rate 21 H 22 H Blood Pressure Pulse Oximetry Intake/Output Intake/Output: Intake & Output 01/23/21 01/24/21 01/25/21 01/26/21 23:59 23:59 23:59 23:59 Intake Total 2956 3222 4310 1145 Output Total 1325 725 950 950 Balance 1631 7317 6020 195 Meds/Results Medications: Active Medications Generic Name Dose Route Start Last Admin Trade Name Freq PRN Reason Stop Dose Admin Acetaminophen 1,000 mg 01/21/21 09:26 Acetaminophen 500 Mg Tablet PO Q6H PRN Mild Pain (1-3) or Fever Dexamethasone Sodium Phosphate 10 mg 01/26/21 21:00 Dexamethasone Sod Phos Inj 10 Mg/Ml 1 Ml Vial IV PUSH Q12H JANEY Dextrose 12.5 gm 01/22/21 14:42 Dextrose 50% 25 Gm/50 Ml Syringe IV PUSH PRN PRN Hypoglycemia Protocol Enoxaparin Sodium 40 mg 01/23/21 09:00 01/26/21 10:12 Enoxaparin 40 Mg/0.4 Ml
--- NOTE | 2021-01-26 11:01 | WPDINTPN ---
Progress Note: A&P Assessment and Plan (1) Acute respiratory failure: Code(s): J96.00 - Acute respiratory failure, unspecified whether with hypoxia or hypercapnia Status: Acute Assessment and Plan: acute respiratory failure and sepsis secondary to supraglottic airway obstruction from epiglottitis, odontogenic infection of left mandibular area and abscess, edema, pharyngitis 01/22 status post incision and drainage by ENT. Intubated with size 6 ET tube with fiberoptic. Continue full mechanical ventilation support to prevent hypoxemia/hypercarbia and end organ damage. Ventilator settings reviewed decrease tidal volume to 420. FiO2 is at 70% and PEEP is 12. 01/24 CT IMPRESSION: 1. Possible residual abscess in the left floor the mouth, assessment difficult without intravenous contrast. 2. Dependent airspace opacities of the lungs, consistent with atelectasis versus pneumonia. 3. Small pleural effusions. 01/25 CT neck with contrast IMPRESSION: 1. Residual 2.1 x 1.4 x 2.8 cm abscess tracking within the left mylohyoid muscle which appears to originate at a periapical abscess at the posterior most left mandibular molar. Abscess is decreased since the CT prior to a reported incision and drainage but which does appear slightly increased since the initial postoperative study. 2. Persistent surrounding soft tissue edema at the left side of the oropharynx, slightly improved at the soft palate, uvula and left aryepiglottic fold but which continues to narrow the airway surrounding an endotracheal tube and nasogastric tube. Bedside drainage was attempted by ENT but was unsuccessful Patient is being taken to operating room this morning for repeat drainage of the abscess continue sedation due to compromised airway reviewed ABG and PCXR. 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 Status: Acute (4) Odontogenic infection of jaw: Code(s): M27.2 - Inflammatory conditions of jaws Status: Acute (5) Infection of supraglottis (throat): Code(s): J04.30 - Supraglottitis, unspecified, without obstruction Status: Acute (6) Pharyngitis: Code(s): J02.9 - Acute pharyngitis, unspecified Status: Acute (7) Epiglottitis: Code(s): J05.10 - Acute epiglottitis without obstruction Status: Acute Additional Plan DVT prophylaxis - Lovenox and SCDs Stress ulcer prophylaxis - Pepcid Nutrition - continue tube feed SSI to monitor sugars Code Status - Full Code Total Critical Care Time - 30 minutes Due to a high probability of clinically significant, life threatening deterioration, the patient required my highest level of preparedness to intervene emergently and I personally spent this critical care time directly and personally managing the patient. This critical care time included obtaining a history; examining the patient; pulse oximetry; ordering and review of studies; arranging urgent treatment with development of a management plan; evaluation of patient's response to treatment; frequent reassessment; and discussions with other providers. It was exclusive of separately billable procedures and treating other patients and teaching time. Please see Assessment and Plan section and the rest of the note for further information on patient assessment and treatment Subjective Date/time seen: 01/26/21 11:01 Overnight events reviewed. Afebrile Continues to be on mechanical ventilation Patient is being taken to operating room this morning Vitals acceptable Wakes up on sedation holiday and follows commands Review of Systems Review of Systems: ALISA orozco
--- NOTE | 2021-01-26 11:44 | PCDIET ---
Nutrition Follow-Up Complete: Nutrition Diagnosis: Inadequate oral intake related to oral intubation as evidenced by NPO status. Nutrition Goal: Patient to meet estimated nutritional needs. Goal in progress. Tube feedings held for incision and drainage of left neck abscess today. Tube feedings expected to resume later today. Last recorded weight is 127.6 kg which is stable with last review. Bowel Motility: +BM today. Labs Reviewed: WBC (19.1), RBC (4.52), Hgb (13.0), Hct (39.1), BUN (26), Alb (3.2) Meds Noted: Propofol (rate of 9.83mL/hr provides 259kcal per 24 hours), Versed, Fentanyl, LR at 50mL/hr, Pepcid, Decadron, Cleocin, Unasyn Additional Notes: No documented skin breakdown. Will continue to monitor with same goal. Nutrition Monitoring and Evaluation: Follow up every Monday/Monday.
[2021-01-26] MEDS: METOCLOPRAMIDE HCL 10 MG/10 ML SOLN UDC 5 MG PO ×3 (12:08→23:11)
[2021-01-26 12:26] LABS: Glucose Point of Care 131 mg/dl (65-105)
[2021-01-26] MEDS: PROPOFOL IV EMULSION 100 ML 9.83 MG IV CONT (14:38)
[2021-01-26 18:35] LABS: Glucose Point of Care 125 mg/dl (65-105)
[2021-01-26] MEDS: FENTANYL 2,500MCG/NS250ML(*CRX 2,500 MCG/250 ML BAG 10 MCG IV CONT (18:39)
[2021-01-26] MEDS: LACTATED RINGERS 1,000 ML 50 ML IV CONT (20:21)
[2021-01-26 23:23] LABS: Glucose Point of Care 136 mg/dl (65-105)
[2021-01-27] VITALS (31 sets, daily range): BP systolic 101–172; BP diastolic 66–98; PULSE 41–108; RESP 14–21; TEMP 36.4–36.9; O2SAT 93–99
[2021-01-27] MEDS: PROPOFOL IV EMULSION 100 ML 4.91 MG IV CONT (04:45)
[2021-01-27 04:49] LABS: Mean Corpuscular HGB Conc 32.5 g/dl (32-36); Mean Corpuscular Hemoglobin 28.9 pg (26-34); Mean Corpuscular Volume 88.9 fl (80-100); Mean Platelet Volume 9.7 fl (7.4-10.4); Platelet Count Result 432 k/mm3 (150-375); Red Cell Distribution Width 13.2 % (11.5-14.5); White Blood Count 18.8 K/mm3 (4.5-10.0)
[2021-01-27 05:01] LABS: Alanine Aminotransferase 53 U/L (4-50); Albumin Level 3.1 g/dL (3.5-5.1); Alkaline Phosphatase 69 U/L (38-126); Anion Gap 7 mmol/L (8-16); Aspartate Amino Transferase 27 U/L (17-59); Bilirubin,Total 0.2 mg/dL (0.2-1.3); Blood Urea Nitrogen 25 mg/dL (9-20); Calcium 8.4 mg/dL (8.4-10.2); Carbon Dioxide 23 mmol/L (22-30); Chloride 103 mmol/L (98-107); Estimated CRCL calculation 172 ml/min; Estimated Glomerular Filt Rate > 60; Glucose 108 mg/dL (65-110); Magnesium 2.2 mg/dL (1.6-2.3); Potassium 4.5 mmol/L (3.4-5.0); Sodium 133 mmol/L (137-145)
[2021-01-27 05:04] LABS: Alveolar/Arterial O2 Gradient 275.6 mmHg; Base Excess ABG 0.5 mEq/l (+/-2.0); Carboxyhemoglobin 0.3 % THb (0-2.0); Fractional Inspired Oxygen 55 %; HCO3 ABG 24.6 mEq/l (22.0-26.0); Methemoglobin ABG 0.4 %THb (0-1.5); Oxygen Content ABG 18.9 %vol (16.0-22.0); Oxygen Saturation ABG 95.4 % (95.0-100.0); Oxyhemoglobin 94.1 % THb (90.0-100.0); PCO2 ABG 37.8 mmHg (35.0-45.0); PO2 ABG 74.5 mmHg (80.0-100.0); PO2 FiO2 Ratio Arterial Blood 1.35 %; Reduced Hemoglobin 5.2 %THb (0-5.0); Total Hemoglobin 14.3 g/dL (12.0-18.0); pH ABG 7.431 (7.350-7.450)
[2021-01-27 05:05] LABS: Arterial Blood Gas Vent Mode CMV; Arterial Blood Gas Ventilator rate 16 /MIN; Device VENTILATOR; Modified Allen's Test Pass; Site Drawn RIGHT RADIAL
[2021-01-27 05:06] LABS: Arterial Blood Gas PEEP 12 cmH2O; Arterial Blood Gas Tidal Volume 420 ml
[2021-01-27] MEDS: METOCLOPRAMIDE HCL 10 MG/10 ML SOLN UDC 5 MG PO ×3 (05:20→17:37)
[2021-01-27] MEDS: CLINDAMYCIN 900 MG/D5W 50 ML 900 MG/50 ML PIGGYBACK 50 MG IVPB ×2 (05:20→15:21)
[2021-01-27] MEDS: AMPICILLIN SULB 3 GM/NS 100 ML 3 GM/100 ML VIAL IVPB ×3 (05:20→17:36)
[2021-01-27] MEDS: FAMOTIDINE 20 MG/2 ML VIAL IV PUSH ×2 (08:09→20:52)
[2021-01-27] MEDS: MINERAL OIL/WHITE PETROLATUM OINTMENT 1 APPLIC EACH EYE ×2 (08:09→20:52)
[2021-01-27] MEDS: ENOXAPARIN 40 MG/0.4 ML SYRINGE SUB-Q (08:09)
--- NOTE | 2021-01-27 11:19 | WPDANESPN ---
Anes - Prog Note Post-Op Date/Time: 01/27/21 11:19 Cardiovascular status: other (management per ICU team) Respiratory status: other (management per ICU team. pt vented.) Airway patency: other (pt intubated and on vent) Mental status: other (pt sedated at this time) Post-Op hydration status: other (management per ICU team) Vital Signs: Last Vital Signs Temp 36.8 C 01/27/21 10:00 Pulse 41 L 01/27/21 10:00 Resp 18 01/27/21 10:00 BP 130/90 01/27/21 10:00 Pulse Ox 95 01/27/21 10:00 Pain Score (VAS): 0/10 IV sedation and Pain management ICU team I/O: Intake & Output 01/26/21 01/27/21 01/27/21 23:59 07:59 15:59 Intake Total 2252 1583 Output Total 800 750 Balance 1452 833 Laboratory Tests 01/27/21 04:25 01/27/21 04:25 01/26/21 01/26/21 01/26/21 12:02 18:20 23:21 WBC RBC Hgb Hct MCV MCH MCHC RDW Plt Count MPV Puncture Site ABG pH ABG pCO2 ABG pO2 ABG PO2/FiO2 Ratio ABG HCO3 ABG O2 Saturation ABG O2 Content ABG Base Excess A-a Gradient Oxyhemoglobin Carboxyhemoglobin Methemoglobin Reduced Hemoglobin Total Hemoglobin O2 Delivery Device O2 Liters/Min Minute Volume Vent Rate Vent Mode FiO2 Tidal Volume PEEP Peak Inspir Pressure Pressure Support Sodium Potassium Chloride Carbon Dioxide Anion Gap BUN Creatinine Estim Creat Clear Calc Estimated GFR Glucose POC Capillary Glucose 131 H 125 H 136 H Calcium Magnesium Total Bilirubin AST ALT Alkaline Phosphatase Total Protein Albumin 01/27/21 01/27/21 01/27/21 04:19 04:25 04:25 WBC 18.8 H RBC 4.50 L Hgb 13.0 L Hct 40.0 L MCV 88.9 MCH 28.9 MCHC 32.5 RDW 13.2 Plt Count 432 H MPV 9.7 Puncture Site Right radial ABG pH 7.431 ABG pCO2 37.8 ABG pO2 74.5 L ABG PO2/FiO2 Ratio 1.35 ABG HCO3 24.6 ABG O2 Saturation 95.4 ABG O2 Content 18.9 ABG Base Excess 0.5 A-a Gradient 275.6 Oxyhemoglobin 94.1 Carboxyhemoglobin 0.3 Methemoglobin 0.4 Reduced Hemoglobin 5.2 H Total Hemoglobin 14.3 O2 Delivery Device Ventilator O2 Liters/Min Not Reportable Minute Volume Not Reportable Vent Rate 16 Vent Mode Cmv FiO2 55 Tidal Volume 420 PEEP 12 Peak Inspir Pressure Not Reportable Pressure Support Not Reportable Sodium 133 L Potassium 4.5 Chloride 103 Carbon Dioxide 23 Anion Gap 7 L BUN 25 H Creatinine 0.70 Estim Creat Clear Calc 172 Estimated GFR > 60 Glucose 108 POC Capillary Glucose Calcium 8.4 Magnesium 2.2 Total Bilirubin 0.2 AST 27 ALT 53 H Alkaline Phosphatase 69 Total Protein 6.0 L Albumin 3.1 L Microbiology 01/26/21 08:52 Abscess Anaerobic Culture - Preliminary Post-procedural complaints: none Patient Feedback: Patient satisfied with anesthetic care.
--- NOTE | 2021-01-27 11:27 | PCDIET ---
ICU Rounding Note: Patient tolerating Glucerna 1.2 at 60mL/hr goal rate with 30mL water flush every 4 hours. Last recorded weight is 126.6kg which is down from last review. Bowel Motility: Last documented BM on 01/26/21 x 1. Labs Reviewed: WBC (18.8), RBC (4.50), Hgb (13.0), Hct (40.0), Glu (108), BUN (25), Na (133), Alb (3.1) Meds Noted: Propofol (rate of 9.83mL/hr provides 259kcal per day), LR at 50mL/hr, Unasyn, Cleocin, Decadron, Pepcid, Fentanyl, Reglan, Versed Additional Notes: Plan to taper Propofol and increase Fentanyl, as needed. Current tube feeding over 22 hours/day with Propofol at current rate providing 1843kcal (15kcal/kg). No documented skin breakdown. Following daily in ICU rounds. Assessing/reassessing every Monday/Monday.
[2021-01-27 11:46] LABS: Glucose Point of Care 102 mg/dl (65-105)
--- NOTE | 2021-01-27 12:05 | WPDINTPN ---
Progress Note: A&P Assessment and Plan (1) Acute respiratory failure: Code(s): J96.00 - Acute respiratory failure, unspecified whether with hypoxia or hypercapnia Status: Acute Assessment and Plan: acute respiratory failure and sepsis secondary to supraglottic airway obstruction from epiglottitis, odontogenic infection of left mandibular area and abscess, edema, pharyngitis 01/22 status post incision and drainage by ENT. Intubated with size 6 ET tube with fiberoptic. Continue full mechanical ventilation support to prevent hypoxemia/hypercarbia and end organ damage. Ventilator settings reviewed decrease tidal volume to 420. FiO2 is at 70% and PEEP is 12. 01/24 CT IMPRESSION: 1. Possible residual abscess in the left floor the mouth, assessment difficult without intravenous contrast. 2. Dependent airspace opacities of the lungs, consistent with atelectasis versus pneumonia. 3. Small pleural effusions. 01/25 CT neck with contrast IMPRESSION: 1. Residual 2.1 x 1.4 x 2.8 cm abscess tracking within the left mylohyoid muscle which appears to originate at a periapical abscess at the posterior most left mandibular molar. Abscess is decreased since the CT prior to a reported incision and drainage but which does appear slightly increased since the initial postoperative study. 2. Persistent surrounding soft tissue edema at the left side of the oropharynx, slightly improved at the soft palate, uvula and left aryepiglottic fold but which continues to narrow the airway surrounding an endotracheal tube and nasogastric tube. On 01/26/2021 Bedside drainage was attempted by ENT but was unsuccessful Patient was taken to the OR he had a transoral incision and drainage of left-sided neck abscess/ odontogenic abscess (see operative notes from 01/26/2021 for details) -ETT was changed to a size 7.5 by ENT in the OR -continue IV Decadron - reviewed ABG and PCXR. 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 Status: Acute Assessment and Plan: Now as a 7.5 ET tube, continue steroids -may repeat a CT scan of the neck and soft tissues to evaluate swelling and edema before extubated along with a cuff leak test (4) Odontogenic infection of jaw: Code(s): M27.2 - Inflammatory conditions of jaws Status: Acute Assessment and Plan: As above (5) Infection of supraglottis (throat): Code(s): J04.30 - Supraglottitis, unspecified, without obstruction Status: Acute Assessment and Plan: As above (6) Pharyngitis: Code(s): J02.9 - Acute pharyngitis, unspecified Status: Acute Assessment and Plan: As above (7) Epiglottitis: Code(s): J05.10 - Acute epiglottitis without obstruction Status: Acute Assessment and Plan: As above Additional Plan DVT prophylaxis - Lovenox and SCDs Stress ulcer prophylaxis - Pepcid Nutrition - continue tube feed SSI to monitor sugars Code Status - Full Code Total Critical Care Time - 34 minutes Due to a high probability of clinically significant, life threatening deterioration, the patient required my highest level of preparedness to intervene emergently and I personally spent this critical care time directly and personally managing the patient. This critical care time included obtaining a history; examining the patient; pulse oximetry; ordering and review of studies; miguelina
[2021-01-27] MEDS: MIDAZOLAM 100MG/NS 100ML(*CRX) 100 MG/100 ML BAG 6 MG IV CONT (15:17)
[2021-01-27] MEDS: FENTANYL 2,500MCG/NS250ML(*CRX 2,500 MCG/250 ML BAG 15 MCG IV CONT (16:41)
--- NOTE | 2021-01-27 16:52 | PM.PNGS ---
Progress Note: A&P Assessment and Plan (1) Abscess, neck: Code(s): L02.11 - Cutaneous abscess of neck Status: Acute Assessment and Plan: Patient was seen again today. Continues to be intubated. Previous recommendation was to extubate as soon as criteria were met given that his airway appeared normal in the OR. Again, would recommend extubating once criteria are met given that intubation limits pharyngeal movement, pharyngeal movement helps express infectious debris and purulence and gives a better overall picture of the course of infection . Would again recommend decreasing Decadron and limiting its use as it can mask a worsening infectious process. Follow up on operative culture for directed antibiotic therapy. Thank you. Subjective Subjective Date/Time Seen: 01/27/21 16:52 Objective Data Vital Signs Vital Signs: Vital Signs - 24 hr 01/26/21 17:30 01/26/21 18:00 01/26/21 18:35 Temperature 36.6 C Pulse Rate 40 L 58 L 59 L Respiratory Rate 17 16 16 Blood Pressure 112/72 Pulse Oximetry 96 01/26/21 18:39 01/26/21 20:00 01/26/21 20:17 Temperature 36.8 C Pulse Rate 59 L 45 L 44 L Respiratory Rate 16 17 Blood Pressure 115/66 Pulse Oximetry 94 95 01/26/21 21:44 01/26/21 22:00 01/26/21 22:48 Temperature 36.8 C Pulse Rate 41 L 49 L 46 L Respiratory Rate 16 18 Blood Pressure 109/66 Pulse Oximetry 95 96 01/26/21 23:11 01/26/21 23:16 01/27/21 00:00 Temperature 36.8 C Pulse Rate 46 L 46 L 46 L Respiratory Rate 17 17 19 Blood Pressure 110/68 Pulse Oximetry 97 01/27/21 00:51 01/27/21 02:00 01/27/21 02:37 Temperature 36.9 C Pulse Rate 44 L 45 L 47 L Respiratory Rate 16 20 Blood Pressure 118/73 Pulse Oximetry 95 96 01/27/21 04:00 01/27/21 04:45 01/27/21 05:22 Temperature 36.9 C Pulse Rate 50 L 50 L 50 L Respiratory Rate 21 H 19 19 Blood Pressure 115/77 Pulse Oximetry 96 01/27/21 05:25 01/27/21 06:00 01/27/21 06:27 Temperature 36.8 C Pulse Rate 55 L 48 L 45 L Respiratory Rate 16 16 Blood Pressure 101/66 Pulse Oximetry 97 96 01/27/21 07:59 01/27/21 08:00 01/27/21 08:15 Temperature 36.9 C Pulse Rate 67 45 L 67 Respiratory Rate 16 16 Blood Pressure 130/74 Pulse Oximetry 94 95 01/27/21 09:32 01/27/21 10:00 01/27/21 10:45 Temperature 36.8 C Pulse Rate 45 L 41 L 42 L Respiratory Rate 18 18 Blood Pressure 130/90 Pulse Oximetry 95 95 01/27/21 11:42 01/27/21 11:53 01/27/21 12:00 Temperature 36.6 C Pulse Rate 42 L 42 L 41 L Respiratory Rate 18 16 Blood Pressure 142/73 H Pulse Oximetry 96 96 01/27/21 14:00 01/27/21 14:38 01/27/21 15:17 Temperature 36.4 C Pulse Rate 42 L 42 L 42 L Respiratory Rate 20 20 Blood Pressure 143/71 H Pulse Oximetry 97 97 01/27/21 15:22 01/27/21 16:41 Temperature Pulse Rate 42 L 42 L Respiratory Rate 20 20 Blood Pressure Pulse Oximetry Intake/Output Intake/Output: Intake & Output 01/24/21 01/25/21 01/26/21 01/27/21 23:59 23:59 23:59 23:59 Intake Total 3222 4310 3622 1866 Output Total 643 958 5267 750 Balance 2497 3360 1872 1116 Meds/Results Medications: Active Medications Generic Name Dose Route Start Last Admin Trade Name Freq PRN Reason Stop Dose Admin Acetaminophen 1,000 mg 01/21/21 09:26 Acetaminophen 500 Mg Tablet PO Q6H PRN Mild Pain (1-3) or Fever Dexamethasone Sodium Phosphate 10 mg 01/26/21 21:00 01/27/21 08:09 Dexamethasone Sod Phos Inj 10 Mg/Ml 1 Ml Vial IV PUSH 10 mg Q12H JANEY Administration Dextrose 12.5 gm 01/22/21 14:42 Dextrose 50% 25 Gm/50 Ml Syringe IV PUSH PRN PRN Hypoglycemia Protocol Enoxaparin Sodium 40 mg 01/23/21 09:00 01/27/21 08:09 Enoxaparin 40 Mg/0.4 Ml Syringe SUB-Q 40 mg DAILY JANEY Administration Famotidine 20 mg 01/21/21 09:00 01/27/21 08:09 Famotidine 20 Mg/2 Ml Vial IV PUSH 20 mg Q12HR JANEY Administration Glucagon 1
[2021-01-27] MEDS: LACTATED RINGERS 1,000 ML 50 ML IV CONT (17:37)
[2021-01-27 17:51] LABS: Glucose Point of Care 122 mg/dl (65-105)
[2021-01-28] VITALS (22 sets, daily range): BP systolic 112–154; BP diastolic 63–93; PULSE 40–100; RESP 10–17; TEMP 36.6–37.3; O2SAT 94–100
[2021-01-28] MEDS: AMPICILLIN SULB 3 GM/NS 100 ML 3 GM/100 ML VIAL IVPB ×5 (01:00→23:01)
[2021-01-28] MEDS: CLINDAMYCIN 900 MG/D5W 50 ML 900 MG/50 ML PIGGYBACK 50 MG IVPB ×4 (01:00→22:44)
[2021-01-28] MEDS: METOCLOPRAMIDE HCL 10 MG/10 ML SOLN UDC 5 MG PO ×2 (01:00→07:03)
[2021-01-28 01:44] LABS: Glucose Point of Care 98 mg/dl (65-105)
[2021-01-28 04:59] LABS: Alveolar/Arterial O2 Gradient 163.6 mmHg; Base Excess ABG 0.5 mEq/l (+/-2.0); Carboxyhemoglobin 0.3 % THb (0-2.0); Fractional Inspired Oxygen 45 %; HCO3 ABG 23.7 mEq/l (22.0-26.0); Methemoglobin ABG 0.5 %THb (0-1.5); Oxygen Saturation ABG 98.5 % (95.0-100.0); Oxyhemoglobin 96.9 % THb (90.0-100.0); PCO2 ABG 33.8 mmHg (35.0-45.0); PO2 ABG 118.8 mmHg (80.0-100.0); PO2 FiO2 Ratio Arterial Blood 2.64 %; Reduced Hemoglobin 2.3 %THb (0-5.0); Total Hemoglobin 14.6 g/dL (12.0-18.0); pH ABG 7.463 (7.350-7.450)
[2021-01-28 05:00] LABS: Device VENTILATOR; Modified Allen's Test Pass; Site Drawn RIGHT RADIAL
[2021-01-28 05:01] LABS: Arterial Blood Gas PEEP 12 cmH2O; Arterial Blood Gas Tidal Volume 500 ml; Arterial Blood Gas Vent Mode CMV; Arterial Blood Gas Ventilator rate 16 /MIN
[2021-01-28 07:31] LABS: Glucose Point of Care 108 mg/dl (65-105)
[2021-01-28 07:37] LABS: Mean Corpuscular HGB Conc 33.3 g/dl (32-36); Mean Corpuscular Hemoglobin 28.6 pg (26-34); Mean Corpuscular Volume 85.7 fl (80-100); Mean Platelet Volume 9.7 fl (7.4-10.4); Platelet Count Result 467 k/mm3 (150-375); Red Cell Distribution Width 12.8 % (11.5-14.5); White Blood Count 21.5 K/mm3 (4.5-10.0)
[2021-01-28 07:39] LABS: Anion Gap 8 mmol/L (8-16); Blood Urea Nitrogen 23 mg/dL (9-20); Calcium 8.7 mg/dL (8.4-10.2); Carbon Dioxide 24 mmol/L (22-30); Chloride 99 mmol/L (98-107); Estimated CRCL calculation 152 ml/min; Estimated Glomerular Filt Rate > 60; Glucose 106 mg/dL (65-110); Potassium 4.4 mmol/L (3.4-5.0); Sodium 131 mmol/L (137-145)
[2021-01-28] MEDS: ENOXAPARIN 40 MG/0.4 ML SYRINGE SUB-Q (08:04)
[2021-01-28] MEDS: FAMOTIDINE 20 MG/2 ML VIAL IV PUSH ×2 (08:05→21:00)
[2021-01-28] MEDS: MINERAL OIL/WHITE PETROLATUM OINTMENT 1 APPLIC EACH EYE (08:05)
[2021-01-28 08:30] LABS: Lymphocytes Absolute Manual 1.72 K/mm3 (1.1-4.5); Monocytes Absolute Manual 1.29 K/mm3 (0.1-0.90); Monocytes Percent Manual 6 % (3-9); Neutrophils Percent Manual 86 % (46-73); Platelet Estimate Adequate (Adequate); Total Cells Counted 100
[2021-01-28] MEDS: FUROSEMIDE INJ 40 MG/4 ML VIAL IV PUSH (09:14)
--- NOTE | 2021-01-28 11:44 | PC.NURSE ---
Updated spouse on plan to extubate patient and plan post- extubation.
--- NOTE | 2021-01-28 11:57 | PCDIET ---
Nutrition Follow-Up Complete: Nutrition Diagnosis: Inadequate oral intake related to oral intubation as evidenced by NPO status. Nutrition Goal: Patient to meet estimated nutritional needs. Goal in progress. Patient had been tolerating Glucerna 1.2 at 60mL/hr goal rate with 30mL water flush every 4 hours, but this is currently on hold for anticipated extubation. Last recorded weight is 128.4 kg which is increased from last review. +I/O. Bowel Motility: BM x 1 today. Labs Reviewed: WBC (21.5), Glu (108), Na (131) Meds Noted: Unasyn, LR at 50mL/hr, Cleocin, Reglan, Decadron, Versed, Lasix, Pepcid, Fentanyl, Propofol (rate of 3.276mL/hr provides 86kcal per day) Additional Notes: No documented pressure ulcers. Will continue to monitor with same goal. Nutrition Monitoring and Evaluation: Follow up every Monday/Monday.
[2021-01-28 12:01] LABS: Alveolar/Arterial O2 Gradient 154.1 mmHg; Base Excess ABG 5.7 mEq/l (+/-2.0); Fractional Inspired Oxygen 40 %; HCO3 ABG 28.2 mEq/l (22.0-26.0); Oxygen Content ABG 21.9 %vol (16.0-22.0); Oxygen Saturation ABG 97.7 % (95.0-100.0); Oxyhemoglobin 96.5 % THb (90.0-100.0); PCO2 ABG 34.7 mmHg (35.0-45.0); PO2 ABG 91.2 mmHg (80.0-100.0); PO2 FiO2 Ratio Arterial Blood 2.28 %; Total Hemoglobin 16.1 g/dL (12.0-18.0)
[2021-01-28 12:04] LABS: Arterial Blood Gas Vent Mode SPONTANEOUS; Device VENTILATOR; Modified Allen's Test Pass; Site Drawn RIGHT RADIAL; pH ABG 7.528 (7.350-7.450)
[2021-01-28 12:05] LABS: Arterial Blood Gas PEEP 5 cmH2O; Arterial Blood Gas Pressure Support 8 cmH2O
--- NOTE | 2021-01-28 13:21 | WPDINTPN ---
Progress Note: A&P Assessment and Plan (1) Acute respiratory failure: Code(s): J96.00 - Acute respiratory failure, unspecified whether with hypoxia or hypercapnia Status: Acute Assessment and Plan: acute respiratory failure and sepsis secondary to supraglottic airway obstruction from epiglottitis, odontogenic infection of left mandibular area and abscess, edema, pharyngitis 01/22 status post incision and drainage by ENT. Intubated with size 6 ET tube with fiberoptic. Continue full mechanical ventilation support to prevent hypoxemia/hypercarbia and end organ damage. Ventilator settings reviewed decrease tidal volume to 420. FiO2 is at 70% and PEEP is 12. 01/24 CT IMPRESSION: 1. Possible residual abscess in the left floor the mouth, assessment difficult without intravenous contrast. 2. Dependent airspace opacities of the lungs, consistent with atelectasis versus pneumonia. 3. Small pleural effusions. 01/25 CT neck with contrast IMPRESSION: 1. Residual 2.1 x 1.4 x 2.8 cm abscess tracking within the left mylohyoid muscle which appears to originate at a periapical abscess at the posterior most left mandibular molar. Abscess is decreased since the CT prior to a reported incision and drainage but which does appear slightly increased since the initial postoperative study. 2. Persistent surrounding soft tissue edema at the left side of the oropharynx, slightly improved at the soft palate, uvula and left aryepiglottic fold but which continues to narrow the airway surrounding an endotracheal tube and nasogastric tube. On 01/26/2021 Bedside drainage was attempted by ENT but was unsuccessful Patient was taken to the OR he had a transoral incision and drainage of left-sided neck abscess/ odontogenic abscess (see operative notes from 01/26/2021 for details) -ETT was changed to a size 7.5 by ENT in the OR -continue IV Decadron for 1 more day and will discontinue - reviewed ABG and PCXR. -can you bronchodilators -all sedation was turned off for SBT - Patient placed on SBT, did fairly well, repeat ABGs look good, patient had a good cuff leak, and was successfully extubated on 01/28/2021. 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 Status: Acute Assessment and Plan: Now as a 7.5 ET tube, continue steroids -discuss with ENT on 01/27/2021, he stated airway was not compromised and patient would be ready to extubate (4) Odontogenic infection of jaw: Code(s): M27.2 - Inflammatory conditions of jaws Status: Acute Assessment and Plan: As above (5) Infection of supraglottis (throat): Code(s): J04.30 - Supraglottitis, unspecified, without obstruction Status: Acute Assessment and Plan: As above (6) Pharyngitis: Code(s): J02.9 - Acute pharyngitis, unspecified Status: Acute Assessment and Plan: As above (7) Epiglottitis: Code(s): J05.10 - Acute epiglottitis without obstruction Status: Acute Assessment and Plan: As above Additional Plan DVT prophylaxis - Lovenox and SCDs Stress ulcer prophylaxis - Pepcid Nutrition -hold tube feeds for extubation SSI to monitor sugars Code Status - Full Code Total Critical Care Time - 35 minutes Due to a high probability of clinically significant, life threatening deterioration, the patient required my highest level of
--- NOTE | 2021-01-28 13:41 | PC.NURSE ---
Visitor to bedside.
[2021-01-28] MEDS: LACTATED RINGERS 1,000 ML 50 ML IV CONT (15:41)
--- NOTE | 2021-01-28 16:13 | PM.IMPN ---
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 Status: Acute Assessment and Plan: -continue Decadron as per ENT and emergency telecommunications dispatcher, 1 more dose tomorrow -patient extubated 01/28/2021 as he had good cuff leak, now doing well post extubation (4) Epiglottitis: Code(s): J05.10 - Acute epiglottitis without obstruction Status: Acute Assessment and Plan: as above (5) Sepsis: Code(s): A41.9 - Sepsis, unspecified organism Status: Acute Assessment and Plan: sepsis resolving, persistent leukocytosis secondary to steroids awaiting speciation: gram-negative rods and gram-positive cocci Additional Plan Diet: NPO until swallow study tomorrow Code status: Full code DVT prophylaxis: Lovenox GI prophylaxis: Pepcid while on high-dose steroids Disposition: Continue watching in ICU overnight as he is status post extubation Time Spent With Patient Time with patient: 15 - 25 minutes Subjective Date/time seen: 01/28/21 16:13 patient examined post extubation. He feels well and is hungry. I discussed with emergency telecommunications dispatcher to do speech evaluation tomorrow morning after he completes his steroids. He had a good cuff leak and anticipate he will do well with p.o. intake. He will continue IV antibiotics for now And monitor in ICU post extubation for overnight. we discussed the disease course in the events of the last couple days. He will likely status with a new dentist. Patient states his heart rate has been low before and that is not new. Does not take any home medications. Patient denies fever, chills, nausea, vomiting, diarrhea. He has some difficulty opening up his jaw. He complains of the stench of the infection coming out of his mouth. Review of Systems Review of Systems: All systems reviewed & are unremarkable except as noted in HPI and below Exam Narrative: - GENERAL: Pleasant obese male in no acute distress. - EYES: EOMI. Anicteric. - HENT: Moist mucous membranes. He had difficulty opening up his jaw. - LUNGS: Clear to auscultation bilaterally, no wheezing, rhonchi, or rales. - CARDIOVASCULAR: Regular rate and rhythm. No murmur. No JVD. - ABDOMEN: Soft, non-tender and non-distended. No palpable masses. - EXTREMITIES: No edema. Peripheral pulses 2+. Non-tender. - NEUROLOGIC: No focal neurological deficits. CN II-XII grossly intact. - PSYCHIATRIC: Awake, Alert and oriented x 3. Appropriate mood and affect. - SKIN: No rashes or lesions. Warm. - LYMPH: No cervical lymphadenopathy. Objective Data Vital Signs Vital Signs: Vital Signs - 24 hr 01/27/21 16:41 01/27/21 17:27 01/27/21 20:00 Temperature 36.8 C Pulse Rate 42 L 43 L 103 H Respiratory Rate 20 16 Blood Pressure 172/98 H Pulse Oximetry 97 98 01/27/21 20:10 01/27/21 20:50 01/27/21 22:00 Temperature 36.7 C Pulse Rate 50 L 43 L Respiratory Rate 16 Blood Pressure 127/79 Pulse Oximetry 99 98 98 01/27/21 23:00 01/28/21 00:00 01/28/21 02:00 Temperature 36.6 C 37.0 C Pulse Rate 41 L 41 L 44 L Respiratory Rate 16 16 Blood Pressure 134/78 136/77 Pulse Oximetry 93 95 97 01/28/21 02:05 01/28/21 04:00 01/28/21 04:51 Temperature 36.9 C Pulse Rate 43 L 53 L 51 L Respiratory Rate 16 Blood Pressure 154/93 H Pulse Oximetry 94 98 97 01/28/21 06:00 01/28/21 06
[2021-01-28] MEDS: ONDANSETRON INJ 4 MG/2 ML VIAL IV PUSH (18:12)
[2021-01-28 18:19] LABS: Glucose Point of Care 103 mg/dl (65-105)
[2021-01-28 22:59] LABS: Glucose Point of Care 91 mg/dl (65-105)
[2021-01-29] VITALS (8 sets, daily range): BP systolic 99–124; BP diastolic 63–71; PULSE 49–71; RESP 12–18; TEMP 36.4–37.2; O2SAT 93–99
[2021-01-29] MEDS: ERTAPENEM 1 GM/NS 50 ML 1 GM/50 ML BAG IVPB (02:10)
[2021-01-29 06:54] LABS: Glucose Point of Care 88 mg/dl (65-105)
[2021-01-29] MEDS: FAMOTIDINE 20 MG/2 ML VIAL IV PUSH ×2 (09:00→20:12)
[2021-01-29] MEDS: ENOXAPARIN 40 MG/0.4 ML SYRINGE SUB-Q (09:00)
--- NOTE | 2021-01-29 09:57 | PCSTNOTE ---
Please refer to the Bedside Swallow Evaluation in the EMR. Please note, silent aspiration cannot be ruled out at bedside.
--- NOTE | 2021-01-29 10:40 | PC.NURSE ---
Samantha Strange, OT to bedside for evaluation. Patient up to bathroom with walker and OT.
--- NOTE | 2021-01-29 11:11 | PCDIET ---
Nutrition Follow-Up Complete: Nutrition Diagnosis: Inadequate oral intake related to oral intubation as evidenced by NPO status. Nutrition Goal: Patient to meet estimated nutritional needs. Goal in progress. Patient reports tolerating diet but feels he is not eating adequately. Recommend Ensure Compact (220kcal, 9g protein) BID to ensure protein/kcal needs met. Patient agreeable to this. Recommend continuing with regular diet, as tolerated. Last recorded weight is 121.7 kg which is down from last review. -I/O. Bowel Motility: Multiple BMs documented today. Labs Reviewed: Glu (88) Meds Noted: Zosyn, Pepcid, Zofran prn Additional Notes: No pressure sores documented. Will continue to monitor with same goal. Nutrition Monitoring and Evaluation: Follow up every 5 days.
--- NOTE | 2021-01-29 11:44 | PC.NURSE ---
patient transferred to room 301 per bed.
--- NOTE | 2021-01-29 12:25 | PC.NURSE ---
This patient, Reinaldo Michelle, was transferred to [facility] via bed on 01/29/21 at 1144 without issue. Personal belongings sent with patient. Report given to KORIN Johnston. Appropriate documentation sent with patient.
--- NOTE | 2021-01-29 13:07 | WPDINTPN ---
Progress Note: A&P Assessment and Plan (1) Acute respiratory failure: Code(s): J96.00 - Acute respiratory failure, unspecified whether with hypoxia or hypercapnia Status: Acute Assessment and Plan: acute respiratory failure and sepsis secondary to supraglottic airway obstruction from epiglottitis, odontogenic infection of left mandibular area and abscess, edema, pharyngitis 01/22 status post incision and drainage by ENT. Intubated with size 6 ET tube with fiberoptic. Continue full mechanical ventilation support to prevent hypoxemia/hypercarbia and end organ damage. Ventilator settings reviewed decrease tidal volume to 420. FiO2 is at 70% and PEEP is 12. 01/24 CT IMPRESSION: 1. Possible residual abscess in the left floor the mouth, assessment difficult without intravenous contrast. 2. Dependent airspace opacities of the lungs, consistent with atelectasis versus pneumonia. 3. Small pleural effusions. 01/25 CT neck with contrast IMPRESSION: 1. Residual 2.1 x 1.4 x 2.8 cm abscess tracking within the left mylohyoid muscle which appears to originate at a periapical abscess at the posterior most left mandibular molar. Abscess is decreased since the CT prior to a reported incision and drainage but which does appear slightly increased since the initial postoperative study. 2. Persistent surrounding soft tissue edema at the left side of the oropharynx, slightly improved at the soft palate, uvula and left aryepiglottic fold but which continues to narrow the airway surrounding an endotracheal tube and nasogastric tube. On 01/26/2021 Bedside drainage was attempted by ENT but was unsuccessful Patient was taken to the OR he had a transoral incision and drainage of left-sided neck abscess/ odontogenic abscess (see operative notes from 01/26/2021 for details) -ETT was changed to a size 7.5 by ENT in the OR - 01/28/2021: Successfully extubated -off steroids (2) Sepsis: Code(s): A41.9 - Sepsis, unspecified organism Status: Acute Assessment and Plan: Leukocytosis, acute respiratory failure Currently hemodynamically stable adequate blood pressures blood cultures negative to now group a strep culture is negative 01/26/2021 abscess cultures growing growing Pseudomonas and prevotella species, patient was placed on Zosyn and ertapenem, continue the ertapenem as it has minimal pseudomonal coverage -leukocytosis likely related to steroids, will continue to monitor (3) 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 Status: Acute Assessment and Plan: From abscess in the hypopharynx, is airway obstruction is resolved, patient was successfully extubated -according the ENT report when he placed a 7.5 ET tube, the airway was pretty patent (4) Odontogenic infection of jaw: Code(s): M27.2 - Inflammatory conditions of jaws Status: Acute Assessment and Plan: As above (5) Infection of supraglottis (throat): Code(s): J04.30 - Supraglottitis, unspecified, without obstruction Status: Acute Assessment and Plan: As above (6) Pharyngitis: Code(s): J02.9 - Acute pharyngitis, unspecified Status: Acute Assessment and Plan: As above (7) Epiglottitis: Code(s): J05.10 - Acute epiglottitis without obstruction Status: Acute Assessment and Plan: As above Additional Plan DVT prophylaxis - Lovenox and SCDs Stress ulcer prophylaxis - Pepcid Nutrition -patient passed a swallow test, will start regular diet SSI to monitor sugars Code Status - Full Code Total Critical Care Time - 32 minutes Due to a high probability of clinically significant, life threatening deterioration, the patient required my highest level of preparedness to intervene emergently and I personally spent this critical care time directly and personally managing the patient. This critical care time included obtaining a history; examining the patie
--- NOTE | 2021-01-29 17:34 | PM.IMPN ---
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 He is downgraded from ICU. He passes swallow study and advanced to regular diet. He is on Zosyn for Pseudomonas and prevotella infection. clinically stable. patient denies fever, chills, nausea, vomiting, diarrhea, chest pain, abdominal pain , dysphagia. Review of Systems Review of Systems: All systems reviewed & are unremarkable except as noted in HPI and below Exam Narrative: - GENERAL: No acute distress. obese, pleasant male. - EYES: EOMI. Anicteric. - HENT: Moist mucous membranes. No palpable masses - LUNGS: Clear to auscultation bilaterally, no wheezing, rhonchi, or rales. - CARDIOVASCULAR: Regular rate and rhythm. No murmur. No JVD. - ABDOMEN: Soft, non-tender and non-distended. No palpable masses. - EXTREMITIES: No edema. Peripheral pulses 2+. Non-tender. - NEUROLOGIC: No focal neurological deficits. CN II-XII grossly intact. - PSYCHIATRIC: Awake, Alert and oriented x 3. Appropriate mood and affect. - SKIN: No rashes or lesions. Warm. - LYMPH: No cervical lymphadenopathy. Objective Data Vital Signs Vital Signs: Vital Signs - 24 hr 01/28/21 18:00 01/28/21 18:38 01/28/21 20:00 Temperature 37.2 C 37.1 C Pulse Rate 58 L 58 L 52 L Respiratory Rate 12 14 Blood Pressure 131/76 117/70 Pulse Oximetry 95 96 95 01/28/21 22:00 01/29/21 00:00 01/29/21 02:00 Temperature 36.9 C 36.8 C 36.8 C Pulse Rate 48 L 49 L 65 Respiratory Rate 13 13 13 Blood Pressure 112/67 99/63 L 113/71 Pulse Oximetry 95 97 99 01/29/21 04:00 01/29/21 06:00 01/29/21 08:00 Temperature 37.0 C 37.1 C 37.2 C Pulse Rate 57 L 56 L 59 L Respiratory Rate 12 15 16 Blood Pressure 109/65 104/65 104/67 Pulse Oximetry 93 94 94 01/29/21 12:00 01/29/21 14:00 Temperature 36.4 C 36.7 C Pulse Rate 71 66 Respiratory Rate 16 18 Blood Pressure 118/63 124/70 Pulse Oximetry 94 95 Intake/Output Intake/Output: Intake & Output 01/26/21 01/27/21 01/28/21 01/29/21 23:59 23:59 23:59 23:59 Intake Total 3622 3730 2698 800 Output Total 1750 1700 7800 3850 Balance 9866 3566 -2449 -3777 Meds/Results Medications: Active Medications Generic Name Dose Route Start Last Admin Trade Name Freq PRN Reason Stop Dose Admin Acetaminophen 1,000 mg 01/21/21 09:26 Acetaminophen 500 Mg Tablet PO Q6H PRN Mild Pain (1-3) or Fever Enoxaparin Sodium 40 mg 01/23/21 09:00 01/29/21 09:00 Enoxaparin 40 Mg/0.4 Ml Syringe SUB-Q 40 mg DAILY JANEY Administration Famotidine 20 mg 01/21/21 09:00 01/29/21 09:00 Famotidine 20 Mg/2 Ml Vial IV PUSH 20 mg Q12HR JANEY Administration Piperacillin Sod/Tazobactam Sod 4.5 gm in 100 mls @ 200 mls/hr 01/29/21 01:30 01/29/21 17:19 Zosyn 4.5 Gm/D5w 100 Ml IVPB 200 mls/hr Q6HR JANEY Administration Ondansetron HCl 4 mg 01/20/21 22:39 01/28/21 18:12 Ondansetron Inj 4 Mg/2 Ml Vial IV PUSH 4 mg Q4H PRN Administration Nausea Radiology Results: ITS Impressions Abdomen X-Ray 01/22/21 18:03 IMPRESSION: 1. Nasogastric tube
[2021-01-30 05:45] VITALS: BP 122/77; PULSE 83; RESP 18; TEMP 36.1; O2SAT 98
[2021-01-30] MEDS: ENOXAPARIN 40 MG/0.4 ML SYRINGE SUB-Q (08:08)
[2021-01-30] MEDS: FAMOTIDINE 20 MG/2 ML VIAL IV PUSH (08:08)
[2021-01-30 09:56] VITALS: O2SAT 94
[2021-01-30 11:20] LABS: Hematocrit 45.8 % (42.0-52.0); Hemoglobin 15.6 g/dL (14.0-18.0); Mean Corpuscular HGB Conc 34.1 g/dl (32-36); Mean Corpuscular Hemoglobin 28.7 pg (26-34); Mean Corpuscular Volume 84.3 fl (80-100); Mean Platelet Volume 9.6 fl (7.4-10.4); Platelet Count Result 458 k/mm3 (150-375); Red Blood Count 5.43 M/mm3 (4.6-6.20); Red Cell Distribution Width 13.2 % (11.5-14.5); White Blood Count 18.8 K/mm3 (4.5-10.0)
[2021-01-30 11:31] LABS: Alanine Aminotransferase 66 U/L (4-50); Albumin Level 3.7 g/dL (3.5-5.1); Alkaline Phosphatase 86 U/L (38-126); Anion Gap 11 mmol/L (8-16); Aspartate Amino Transferase 40 U/L (17-59); Bilirubin,Total 0.6 mg/dL (0.2-1.3); Blood Urea Nitrogen 15 mg/dL (9-20); Calcium 8.7 mg/dL (8.4-10.2); Carbon Dioxide 23 mmol/L (22-30); Chloride 101 mmol/L (98-107); Estimated CRCL calculation 97 ml/min; Estimated Glomerular Filt Rate > 60; Glucose 92 mg/dL (65-110); Magnesium 2.3 mg/dL (1.6-2.3); Potassium 3.2 mmol/L (3.4-5.0); Sodium 135 mmol/L (137-145)
--- NOTE | 2021-01-30 13:42 | PM.DS ---
DS: Admitting Diagnosis Admitting Diagnosis Left facial swelling DS: Discharge Diagnosis Discharge Diagnosis (1) Odontogenic infection of jaw: Code(s): M27.2 - Inflammatory conditions of jaws Status: Acute Assessment and Plan: Abscess status post I and D on 01/22/2021 for mandibular abscess epiglottitis, 01/26/2021 left sided odontogenic abscess/neck abscess. Cultures growing prevotella (beta lactamase producing) and Pseudomonas. Patient was treated with IV Zosyn and will be discharged home with clindamycin for the patella and Levaquin for the Pseudomonas. He will have 1 more week of p.o. antibiotics and follow-up with PCP and dentist. 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 Passed swallow study. obstruction resolved. DS: Summary Hospital Course Reason for hospitalization: Left-sided face swelling, odontoid infection. Hospital Course: Patient is 35-year-old male with past medical history obesity presents to ED with complaints of left-sided facial swelling and pain. He has a history of left molar chipped tooth. Symptom onset was 01/18/2021. He is admitted for IV antibiotics. He developed worsening facial swelling and abscess creating supraglottic airway obstruction from epiglottitis. He was intubated 01/22/2021 for airway protection. Abscess was I&D 01/22/[address] Salvador Limon and 01/26/[address] Kwasi Goss. He completed a course of Decadron for his airway edema. He successfully extubated on 01/28/2021. Passed swallow study and can now tolerate regular diet. For antibiotics he was on clindamycin and Unasyn and then transitioned to Zosyn once the cultures returned as prevotella and Pseudomonas. He has been doing very well after extubation and will be transition to p.o. clindamycin for the prevotella and Levaquin for the Pseudomonas. He will complete 1 more week of PO antibiotics and follow-up with his PCP as well establish with new dentist. Patient's vitals stable, labs stable (leukocytosis persistent from steroids), patient is stable for discharge. Patient understands and agrees with plan Status at Discharge Functional status at discharge: independent ambulation Overall status at discharge: patient is back to baseline Time Spent with Patient Time attestation: Total time spent providing and/or coordinating discharge services: 35 Time spent: Greater than 30 minutes Exam Narrative: - GENERAL: No acute distress. obese, pleasant male. - EYES: EOMI. Anicteric. - HENT: Moist mucous membranes. No palpable masses. No problem swallowing, no problems opening jaw. - LUNGS: Clear to auscultation bilaterally, no wheezing, rhonchi, or rales. - CARDIOVASCULAR: Regular rate and rhythm. No murmur. No JVD. - ABDOMEN: Soft, non-tender and non-distended. No palpable masses. - EXTREMITIES: No edema. Peripheral pulses 2+. Non-tender. - NEUROLOGIC: No focal neurological deficits. CN II-XII grossly intact. - PSYCHIATRIC: Awake, Alert and oriented x 3. Appropriate mood and affect. - SKIN: No rashes or lesions. Warm. - LYMPH: No cervical lymphadenopathy. DS: Data Data Completed and Pending Labs on day of discharge: Labs from last 24 hours 01/30/21 01/30/21 11:06 11:06 WBC 18.8 H RBC 5.43 Hgb 15.6 Hct 45.8 MCV 84.3 MCH 28.7 MCHC 34.1 RDW 13.2 Plt Count 458 H MPV 9.6 Sodium 135 L Potassium 3.2 L Chloride 101 Carbon Dioxide 23 Anion Gap 11 BUN 15 D Creatinine 1.20 Estim Creat Clear Calc 97 Estimated GFR > 60 Glucose 92 Calcium 8.7 Magnesium 2.3 Total Bilirubin 0.6 AST 40 ALT 66 H Alkaline Phosphatase 86 Total Protein 7.0 Albumin 3.7
[2021-01-30] MEDS: POTASSIUM CHLORIDE 20 MEQ TABLET 40 MEQ PO (13:58)
== END 2021-01-30 14:20 | disposition home or self-care (01) | DRG 870 ==
LOC: ANHED 22:38 → ANH2MED 23:33 → ANHIMU 01-22 11:01 → ANHICU 01-22 13:02 → ANH3MEDSUR 01-29 11:46
PROVIDERS: Emergency Medicine Emergency Medical Services; Internal Medicine; Otolaryngology; Physician Assistant; Admitting Provider Internal Medicine; Emergency Provider Emergency Medicine; PCP Family Medicine; Visit Provider Student in an Organized Health Care Education/Training Program
PROC: 0W933ZZ Drainage of Oral Cavity and Throat, Percutaneous Approach (ICD-10-PCS; principal; 2021-01-22 13:00)
DX: A41.9 Sepsis, unspecified organism (principal); J96.00 Acute respiratory failure, unspecified whether with hypoxia or hypercapnia; J18.9 Pneumonia, unspecified organism; J36 Peritonsillar abscess; L02.11 Cutaneous abscess of neck; J04.30 Supraglottitis, unspecified, without obstruction; J38.6 Stenosis of larynx; M27.2 Inflammatory conditions of jaws; D72.829 Elevated white blood cell count, unspecified; T38.0X5A Adverse effect of glucocorticoids and synthetic analogues, initial encounter; Y92.230 Patient room in hospital as the place of occurrence of the external cause; B96.5 Pseudomonas (aeruginosa) (mallei) (pseudomallei) as the cause of diseases classified elsewhere; E66.9 Obesity, unspecified; Z68.35 Body mass index [BMI] 35.0-35.9, adult
CPT/HCPCS: 36415; 36600; 70490; 70491; 71045; 71250; 80048; 80053; 82375; 82805; 82948; 83050; 83735; 85025; 85027; 86140; 87040; 87070; 87075; 87076; 87077; 87081; 87185; 87186; 87205; 87880; 92610; 94002; 94003; 96361; 96365; 96366; 96367; 96375; 96376; 97110; 97116; 97161; 97165; 97535; A9270; G0378; J0295; J0330; J1100; J1170; J1335; J1650; J1741; J1940; J2250; J2405; J2543; J2704; J3010; J7030; J7120; Q9967

== ENCOUNTER 2021-04-27 21:28 | Emergency (ER) | payer BC, MEDICAID, SELFPAY ==
--- NOTE | ~2021-04-27 | US_ITS ---
US scrotum doppler DATE: 04/27/2021 23:34 INDICATION: Right scrotal pain. Evaluate for torsion. TECHNIQUE: Real-time and color flow imaging and Doppler analysis of the scrotal contents COMPARISON: None FINDINGS: The right testicle measures 4.9 x 2.2 x 3.3 cm. The left testicle measures 4.2 x 2.6 x 2.7 cm. No testicular mass lesion or torsion is evident. The left and right epididymis are unremarkable. Small hydroceles. IMPRESSION: No evidence of testicular torsion or mass lesion Reviewed, dictated and finalized at [facility] Reviewed, dictated and finalized at [facility].
--- NOTE | ~2021-04-27 | CT_ITS ---
EXAMINATION: CT abdomen pelvis w con DATE: 04/28/2021 00:17 INDICATION: Scrotal pain radiating to thigh TECHNIQUE: Computed tomography (CT) of the abdomen and pelvis was performed with 100 cc Omnipaque 350 intravenous contrast. Automated exposure control and iterative reconstruction technique were employe d. Exam dose: 1635.81 mGy-cm total exam DLP. COMPARISON: 04/27/2021 scrotal ultrasound 01/28/2018 CT abdomen pelvis FINDINGS: The lung bases are clear of consolidation. Normal heart size. No pericardial or pleural eff usion. Diffuse hepatic steatosis. No hepatic, splenic, pancreatic, and adrenal or renal space-occupying mass lesion is detected. The gallbladder is present. No bile duct or pancreatic duct dilatation. No urinary tract calculus or hydroureteronephrosis. Normal caliber of the abdominal aorta. No intraperitoneal or retroperitoneal or pelvic mass lesion or adenopathy or ascites. Normal appendix. There is mild colonic diverticulosis. No CT evidence of diverticulitis. No bowel obs truction, bowel wall thickening, pneumatosis or intraperitoneal free air. Small fat-containing umbilical hernia. Transitional lumbosacral vertebra. No suspicious osteolytic or osteoblastic lesions. IMPRESSION: Hepatic steatosis Mild colonic diverticulosis; no CT evidence of diverticulitis Reviewed, dictated and finalized at [facility]. Reviewed, dictated and finalized at [facility].
[2021-04-27 21:31] VITALS: BP 116/81; PULSE 106; RESP 20; TEMP 36.2; O2SAT 97
[2021-04-27 22:07] VITALS: BP 108/79; PULSE 82; RESP 18; TEMP 36.6; O2SAT 97
[2021-04-27 23:16] LABS: Basophils Absolute Auto 0.1 K/mm3 (0.0-0.1); Basophils Percent Auto 0.6 % (0.2-1.2); Eosinophils Absolute Auto 0.4 K/mm3 (0-0.3); Hematocrit 43.2 % (42.0-52.0); Hemoglobin 14.6 g/dL (14.0-18.0); Immature Granulocyte Absolute 0.05 K/mm3 (0.00-0.031); Immature Granulocyte Percent A 0.4 % (0-0.5); Lymphocytes Absolute Auto 3.35 K/mm3 (0.9-3.2); Lymphocytes Percent Auto 24.2 % (18.3-44.2); Mean Corpuscular HGB Conc 33.8 g/dl (32-36); Mean Corpuscular Volume 88.9 fl (80-100); Mean Platelet Volume 9.5 fl (7.4-10.4); Monocytes Absolute Auto 1.1 K/mm3 (0.1-0.6); Monocytes Percent Auto 7.6 % (2.6-8.5); Neutrophils Absolute Auto 8.9 K/mm3 (1.3-6.7); Neutrophils Percent Auto 64.2 % (45.5-73.1); Platelet Count Result 385 k/mm3 (150-375); Red Blood Count 4.86 M/mm3 (4.6-6.20); Red Cell Distribution Width 13.4 % (11.5-14.5); White Blood Count 13.9 K/mm3 (4.5-10.0)
[2021-04-27 23:28] LABS: Add Urine Microscopic? NO; Appearance Urine Clear (Clear); Bilirubin Urine Negative (Negative); Blood Urine Negative (Negative); Color Urine Yellow (Yellow); Glucose Urine UA Negative (Negative); Ketones Urine Negative (Negative); Leukocyte Esterase Ur Negative LEU/UL (Negative); Nitrate Urine Negative (Negative); Protein Urine Negative (Negative); Specific Grav Ur 1.024 (1.001-1.035); Urobilinogen Urine Negative mg/dL (<2.0)
[2021-04-27 23:42] LABS: Alanine Aminotransferase 41 U/L (4-50); Albumin Level 4.1 g/dL (3.5-5.1); Alkaline Phosphatase 71 U/L (38-126); Anion Gap 8 mmol/L (8-16); Aspartate Amino Transferase 31 U/L (17-59); Bilirubin,Total 0.3 mg/dL (0.2-1.3); Blood Urea Nitrogen 21 mg/dL (9-20); Calcium 9.4 mg/dL (8.4-10.2); Carbon Dioxide 27 mmol/L (22-30); Chloride 107 mmol/L (98-107); Estimated CRCL calculation 106 ml/min; Estimated Glomerular Filt Rate > 60; Glucose 95 mg/dL (65-110); Lipase 117 U/L (23-300); Potassium 4.3 mmol/L (3.4-5.0); Sodium 142 mmol/L (137-145)
[2021-04-27] MEDS: SODIUM CHLORIDE 0.9% IV 1,000 ML 999 ML IV CONT (23:46)
[2021-04-27] MEDS: MORPHINE SULFATE (*CRX) 2 MG/ML INJ IV PUSH (23:47)
[2021-04-27] MEDS: KETOROLAC 30 MG/ML VIAL (*BKC) IV PUSH (23:49)
[2021-04-27 23:52] VITALS: BP 125/93; PULSE 77; RESP 18; O2SAT 98
--- NOTE | 2021-04-28 00:04 | ED.GENADULT ---
HPI - General Adult General Chief complaint: Unspecified Stated complaint: groin pain Time Seen by Provider: 04/27/21 22:43 Source: patient Mode of arrival: ambulatory Limitations: no limitations History of Present Illness HPI narrative: 31 year old male with PMH vasectomy, obsesity complains of sudden onset of R testicular pain radiating to R thigh 1 hour [employer]. . Happened while he was getting up from seated position. No known trauma, no testicular or scrotal swelling, no bulges pain worse with bearing down and walking. No fever, no vomiting, no dysuria, no hematuria, no flank pain, denies STI risk factors. Pain constant, sharp worse with movement and bearing down. Improves with laying flat. No previous history of same. No uretheral discharge, no lesions. Related Data Home Medications Medication Instructions Recorded Confirmed tramadol 50 mg PO Q6H PRN 01/21/21 01/21/21 Allergies Allergy/AdvReac Type Severity Reaction Status Date / Time No Known Allergies Allergy Verified 04/27/21 22:11 Review of Systems Review of Systems: All systems reviewed & are unremarkable except as noted in HPI and below (HPI and below) Constitutional: Constitutional: Reports no additional constitutional complaints Comments: no fever, no weakness, no body aches Gastrointestinal: Comments: no abdominal pain, no vomiting, no nausea Genitourinary: Comments: no dysuria, no hematuria, no flank pain, dose have testicular pain, radiating to R thigh Musculoskeletal: Comments: no joint pain, no myalgias Integumentary/Breasts: Comments: no rash, no wounds, no sores, no lesions Neurologic: Comments: no headache, no syncope, no focal weakness [facility] Past Medical History Medical History Obesity Surgical History Surgical History Hx of vasectomy Family History Family History Mother Diabetes mellitus Social History Social History Smoking status: Never smoker Alcohol intake: never Substance use: never Additional living arrangements comments: Lives in [place] with his and 4 children. Gender identity (if verbalized by the patient): Male Spiritual care concerns: No Exam Const: General: healthy appearing, well developed, uncomfortable and other (afebrile) Limitations: no limitations HENMT: Head: normocephalic and atraumatic Mouth: Yes Normal oral and palatal mucosa present, Yes oropharynx normal and Yes moist mucous membranes Eyes: Conjunctivae: conjunctivae normal Sclera: sclerae normal Pupils: Equal, round and reactive pupils present Neck: Neck: full ROM, no lymphadenopathy, no meningeal signs and trachea midline Cardio: Rate: regular rate Rhythm: regular rhythm Peripheral pulses: radial pulses present GI: GI Palp: Yes Soft to palpation Auscultation: normal bowel sounds Other: BLQ tendernes, no rebound no gaurding : General: Yes no CVA tenderness Penis: Yes normal penis Meatus: meatus normal Scrotum: scrotum normal and inguinal hernia (reducible) on the right Other: no scrotal erythema, edema, or swelling. Back/Spine/Pelvis: Back: no CVA tenderness Thoracic/Lumbar Spine: thoracic and lumbar spine normal to inspection Skin: General skin exam: normal color, no rashes or lesions noted and turgor normal Neuro: General: patient oriented x3, no focal motor deficits and CN's II-XI intact bilaterally Course Course Emergency Course: Patient with elevated WBC; UA normal, Scrotal US without abnormality, CT ABd/pelvis normal without acute process, no evidence for acute infection, patient pain controlled after medications, described groin strain and inguinal hernia diagnoses. Patient agreed to retun if fever, vomiting, inability to tolerate fluids or medications or worsening pain and will followup wi
[2021-04-28 01:31] VITALS: BP 131/88; PULSE 70; RESP 16; O2SAT 99
== END 2021-04-28 01:35 | disposition home or self-care (01) ==
PROVIDERS: Emergency Provider Emergency Medicine; PCP Family Medicine
DX: K40.90 Unilateral inguinal hernia, without obstruction or gangrene, not specified as recurrent (principal); E66.9 Obesity, unspecified; Z68.35 Body mass index [BMI] 35.0-35.9, adult
CPT/HCPCS: 36415; 74177; 76870; 80053; 81003; 83690; 85025; 93976; 96361; 96374; 96375; 99284; J1885; J2270; J7030; Q9967

== ENCOUNTER 2021-06-12 20:57 | Emergency (ER) | payer BC, MEDICAID, SELFPAY ==
[2021-06-12 21:07] VITALS: BP 115/84; PULSE 95; RESP 17; TEMP 36.2; O2SAT 98
--- NOTE | 2021-06-12 22:31 | ED.GENADULT ---
HPI - General Adult General Chief complaint: Dental/Oral Stated complaint: Right sided dental pain Time Seen by Provider: 06/12/21 22:10 History of Present Illness HPI narrative: Patient 35-year-old gentleman who presents the emergency department with chief complaint of dental pain. Patient states that he has seen a dentist has been started on oral antibiotics and is still having severe pain in his posterior molar on the right side and the mandible. The patient states that he is scheduled to see an oral surgeon on the to have the tooth pulled and reports that he is miserable in pain. Patient denies fever denies swelling Related Data Home Medications Medication Instructions Recorded Confirmed tramadol 50 mg PO Q6H PRN 01/21/21 01/21/21 Allergies Allergy/AdvReac Type Severity Reaction Status Date / Time No Known Allergies Allergy Verified 06/12/21 21:10 Review of Systems Review of Systems: A 10 system review of systems was completed on the patient and is negative except for what is stated in the HPI. Nursing and ancillary documentation was reviewed. PMFSH Past Medical History Medical History Obesity Surgical History Surgical History Hx of vasectomy Family History Family History Mother Diabetes mellitus Social History Social History Smoking status: Never smoker Alcohol intake: never Substance use: never Additional living arrangements comments: Lives in [place] with his and 4 children. Gender identity (if verbalized by the patient): Male Spiritual care concerns: No Exam Narrative: GENERAL: Well-appearing, well-nourished, and in no acute distress. HEAD: Normocephalic, atraumatic. EYES: PERRLA and EOMI. ENT: Nares clear, no rhinorrhea or epistaxis. Mucous membranes moist. There is gross decay of the posterior molar of the mandible on the right side NECK: Supple. CHEST: Clear to auscultation. No respiratory distress. HEART: Regular rate and rhythm. No murmur heard. Normal peripheral pulses. ABDOMEN: Soft, nontender, nondistended, normal active bowel sounds. EXTREMITIES: Normal range of motion. No edema. SKIN: Warm, dry, no rash. NEURO: No focal deficits. Alert and oriented x3. PSYCH: Normal mood and affect. Course Vital Signs Vital signs: Vital Signs Temperature 36.2 C L 06/12/21 21:07 Pulse Rate 95 06/12/21 21:07 Respiratory Rate 17 06/12/21 21:07 Blood Pressure 115/84 06/12/21 21:07 Pulse Oximetry 98 06/12/21 21:07 Temperature 36.2 C L 06/12/21 21:07 Pulse Rate 95 06/12/21 21:07 Respiratory Rate 17 06/12/21 21:07 Blood Pressure 115/84 06/12/21 21:07 Pulse Oximetry 98 06/12/21 21:07 Medical Decision Making Vital Signs Vital Signs: Vital Signs Temperature 36.2 C L 06/12/21 21:07 Pulse Rate 95 06/12/21 21:07 Respiratory Rate 17 06/12/21 21:07 Blood Pressure 115/84 06/12/21 21:07 Pulse Oximetry 98 06/12/21 21:07 Temperature 36.2 C L 06/12/21 21:07 Pulse Rate 95 06/12/21 21:07 Respiratory Rate 17 06/12/21 21:07 Blood Pressure 115/84 06/12/21 21:07 Pulse Oximetry 98 06/12/21 21:07 Discharge Plan Discharge Clinical Impression: Odontalgia Patient Disposition: Home, Self-Care Condition: Stable Instructions: Antibiotic Form, Toothache (ED) Prescriptions: New tramadol 50 mg tablet 50 mg PO Q6H PRN (Reason: pain) 3 Days Qty: 12 RF: 0 No Action tramadol 50 mg tablet 50 mg PO Q6H PRN (Reason: pain) RF: 0 clindamycin HCl 300 mg capsule 300 mg PO Q8H 7 Days Qty: 21 RF: 0 Saccharomyces boulardii [Florastor] 250 mg capsule 250 mg PO BID 10 Days Qty: 20 RF: 0 levofloxacin 750 mg tablet 750 mg PO CRAIG
[2021-06-12 23:00] VITALS: PULSE 72; RESP 16
== END 2021-06-12 23:02 | disposition home or self-care (01) ==
PROVIDERS: Emergency Provider Emergency Medicine; PCP Family Medicine
DX: K08.89 Other specified disorders of teeth and supporting structures (principal)
CPT/HCPCS: 99283

== ENCOUNTER 2023-11-06 01:18 | Emergency (ER) | payer BC, MEDICAID, SELFPAY ==
[2023-11-06 02:04] VITALS: BP 120/86; PULSE 90; RESP 15; TEMP 36.1; O2SAT 99
--- NOTE | 2023-11-06 03:18 | ED.GENADULT ---
HPI - General Adult General Chief complaint: Unspecified Stated complaint: neck/shoulder pain/ stiffness Time Seen by Provider: 11/06/23 02:31 History of Present Illness HPI narrative: This is a 37-year-old male presenting with neck shoulder pain. Pain started 3 days ago. He describes it is a tension. It is worse after a day of work. It is worse with movement. Patient has been taking Motrin Tylenol intermittent relief. No neurologic deficits or weakness to the hand. No trauma. No fevers. Related Data Home Medications Medication Instructions Recorded Confirmed tramadol 50 mg tablet 50 mg PO Q6H PRN pain 01/21/21 01/21/21 Allergies Allergy/AdvReac Type Severity Reaction Status Date / Time No Known Allergies Allergy Verified 06/12/21 21:10 [facility] Past Medical History Medical History Obesity Surgical History Surgical History Hx of vasectomy Family History Family History Mother Diabetes mellitus Social History Social History Smoking status: Never smoker Alcohol intake: never Substance use: never Living arrangements: with family Additional living arrangements comments: Lives in [place] with his and 4 children. Occupation/Education: occupation Gender identity (if verbalized by the patient): Male Spiritual care concerns: No Exam Narrative: APPEARANCE: No apparent distress. Head: atraumatic. EYES: EOMI, NOSE: Atraumatic NECK: Trachea midline, No midline cervical times RESPIRATORY: No increased rate of breathing CARDIOVASCULAR: RRR, ABDOMINAL: Non-distended MUSCULOSKELETAl: Focal exam of the right upper extremity showed tension in the right trapezius muscle. NEURO: Alert. Cranial nerves 2-12 grossly intact. Sensation light touch, motor function cerebellar function intact for 4 extremities. Gait exam was normal. SKIN:: Warm, dry. Normal color PSYCHIATRIC: Normal affect Course Vital Signs Vital signs: Vital Signs Temperature 97 F L 11/06/23 02:04 Pulse Rate 90 11/06/23 02:04 Respiratory Rate 15 11/06/23 02:04 Blood Pressure 120/86 11/06/23 02:04 Pulse Oximetry 99 11/06/23 02:04 Oxygen Delivery Room Air 11/06/23 02:04 Temperature 97 F L 11/06/23 02:04 Pulse Rate 90 11/06/23 02:04 Respiratory Rate 15 11/06/23 02:04 Blood Pressure 120/86 11/06/23 02:04 Pulse Oximetry 99 11/06/23 02:04 Oxygen Delivery Room Air 11/06/23 02:04 Medical Decision Making MDM Narrative Medical decision making narrative: -Course: 37-year-old male presenting with shoulder and neck pain. Treated with Motrin Tylenol Robaxin lidocaine patch. Discharged primary care follow-up -DDX includes but is not limited to: muscle sprain, muscle strain, cervical radiculopathy -Shared decision making / Disposition: discharged. -RX Motrin Tylenol Robaxin Vital Signs Vital Signs: Vital Signs Temperature 97 F L 11/06/23 02:04 Pulse Rate 90 11/06/23 02:04 Respiratory Rate 15 11/06/23 02:04 Blood Pressure 120/86 11/06/23 02:04 Pulse Oximetry 99 11/06/23 02:04 Oxygen Delivery Room Air 11/06/23 02:04 Temperature 97 F L 11/06/23 02:04 Pulse Rate 90 11/06/23 02:04 Respiratory Rate 15 11/06/23 02:04 Blood Pressure 120/86 11/06/23 02:04 Pulse Oximetry 99 11/06/23 02:04 Oxygen Delivery Room Air 11/06/23 02:04 Discharge Plan Discharge Clinical Impression: Cervical radiculopathy Patient Disposition: Home, Self-Care Condition: Stable Instructions: Antibiotic Form, Cervical Radiculopathy (ED) Additional Instructions: please take medications as instructed. Please follow-up with primary care physician listed below. Return if you develop severe pain or
[2023-11-06] MEDS: ACETAMINOPHEN 500 MG TABLET 1000 MG PO (03:40)
[2023-11-06] MEDS: methocarbamoL 750 MG TABLET 1500 MG PO (03:40)
[2023-11-06] MEDS: KETOROLAC 15 MG/ML VIAL (*BKC) IM (03:40)
[2023-11-06 03:41] VITALS: BP 115/73; PULSE 74; RESP 18; O2SAT 98
[2023-11-06] MEDS: LIDOCAINE 5% PATCH 1 PATCH TRANSDERM (03:41)
== END 2023-11-06 03:59 | disposition home or self-care (01) ==
LOC: ANHED 03:29
PROVIDERS: Emergency Provider Emergency Medicine; PCP Family Medicine
DX: M54.12 Radiculopathy, cervical region (principal); E66.9 Obesity, unspecified; Z68.34 Body mass index [BMI] 34.0-34.9, adult
CPT/HCPCS: 96372; 99283; A9270; J1885

== ENCOUNTER 2023-11-07 20:09 | Emergency (ER) | payer BC, MEDICAID, SELFPAY ==
[2023-11-07 20:11] VITALS: BP 141/79; PULSE 92; RESP 18; TEMP 36.6; O2SAT 98
== END 2023-11-07 22:23 | disposition left against medical advice (07) ==
LOC: ANHED 21:49
PROVIDERS: PCP Family Medicine
DX: F41.9 Anxiety disorder, unspecified (principal)
CPT/HCPCS: 99199

== ENCOUNTER 2024-02-07 23:22 | Emergency (ER) | payer BC, MEDICAID, SELFPAY ==
[2024-02-07 23:37] VITALS: BP 111/71; PULSE 61; RESP 18; TEMP 36.4; O2SAT 97
--- NOTE | 2024-02-08 00:08 | ED.SKABFB ---
HPI - Skin/Abscess/Foreign Bdy General Chief complaint: Skin/Abscess/Foreign Body Stated complaint: abcess Time Seen by Provider: 02/07/24 23:45 Source: patient Mode of arrival: ambulatory Limitations: no limitations History of Present Illness HPI narrative: Patient is a 38-year-old male presents the ED with report of redness and pain to his right lower abdomen. Patient reports he 1st noticed an area of redness 2 days ago. States he assumed he was bit by a spider. Did not actually see a spider. Reports today he developed increased pain to the area of redness. Has not had any drainage. Denies fevers. Related Data Home Medications Medication Instructions Recorded Confirmed tramadol 50 mg tablet 50 mg PO Q6H PRN pain 01/21/21 01/21/21 Allergies Allergy/AdvReac Type Severity Reaction Status Date / Time No Known Allergies Allergy Verified 02/07/24 23:42 Review of Systems Review of Systems: All systems reviewed & are unremarkable except as noted in HPI. All systems reviewed & are unremarkable except as noted in HPI and below PMFSH Past Medical History Medical History Obesity Surgical History Surgical History Hx of vasectomy Family History Family History Mother Diabetes mellitus Social History Social History Smoking status: Never smoker Alcohol intake: never Substance use: never Living arrangements: with family Additional living arrangements comments: Lives in [place] with his and 4 children. Occupation/Education: occupation Gender identity (if verbalized by the patient): Male Spiritual care concerns: No Exam Narrative: GENERAL: Well appearing, obese with BMI of 32.7, non-toxic, in no acute distress. HEAD: Normocephalic, atraumatic. RESPIRATORY: Airway patent, respirations nonlabored. CARDIOVASCULAR: Regular rate and rhythm MUSCULOSKELETAL: Moves all extremities. No gross deformities. SKIN: Warm, dry, normal color. Inflamed hair follicle in right lower abdomen with mild induration and swelling. Area of irregular erythema surrounding hair follicle with minimal warmth, focal TTP. No drainage. No vesicles. No skin sloughing. NEURO: A&O X3. Speech clear. C PSYCHIATRIC: Appropriate mood and affect. Normal interaction. Course Vital Signs Vital signs: Vital Signs Temperature 97.6 F 02/07/24 23:37 Pulse Rate 61 02/07/24 23:37 Respiratory Rate 18 02/07/24 23:37 Blood Pressure 111/71 02/07/24 23:37 Pulse Oximetry 97 02/07/24 23:37 Oxygen Delivery Room Air 02/07/24 23:37 Temperature 97.6 F 02/07/24 23:37 Pulse Rate 61 02/07/24 23:37 Respiratory Rate 18 02/07/24 23:37 Blood Pressure 111/71 02/07/24 23:37 Pulse Oximetry 97 02/07/24 23:37 Oxygen Delivery Room Air 02/07/24 23:37 MDM - Skin/Abscess/Foreign Bdy MDM Narrative Medical decision making narrative: Exam consistent with ingrown hair/folliculitis with surrounding cellulitis. Attempted to extract ingrown hair with forceps, but unsuccessful. Advised patient to utilize warm compresses, take antibiotics as prescribed, follow-up with PCP. Given return precautions. Discharged in stable condition. Medical Records Attestation: I reviewed the patient's medical records. Discharge Plan Discharge Clinical Impression: Cellulitis of right abdominal wall, Ingrown hair Patient Disposition: Home, Self-Care Condition: Stable Instructions: Antibiotic Form, Cellulitis (ED), Folliculitis (ED) Additional Instructions: Recommend frequent warm compresses to abdomen. Take antibiotics as prescribed. You may also apply antibiotic ointment to area on abdomen. Recommend Tylenol/ ibuprofen as needed for discomfort. F
[2024-02-08] MEDS: DOXYCYCLINE HYCLATE 100 MG TABLET PO (00:42)
[2024-02-08 00:49] VITALS: BP 111/82; PULSE 63; RESP 16; O2SAT 96
== END 2024-02-08 00:55 | disposition home or self-care (01) ==
PROVIDERS: Emergency Provider Physician Assistant; PCP Family Medicine
DX: L03.311 Cellulitis of abdominal wall (principal); L73.1 Pseudofolliculitis barbae
CPT/HCPCS: 99283; A9270

== ENCOUNTER 2024-08-13 19:00 | Inpatient (IN) | payer BC, MEDICAID, SELFPAY ==
--- NOTE | ~2024-08-13 | XR_ITS ---
Upright portable view of the abdomen Clinical history: NG tube placement Findings: NG tube in satisfactory position. Dilated small bowel loops are compatible small bowel obst ruction. No free air evident. No abnormal mass lesion or calcification is seen. Osseous structures ar e intact. Impression: NG tube in satisfactory position. Small bowel obstruction. Reviewed, dictated and finalized at location . STRY AND WILDLIFE MANAGER Impression: NG tube in satisfactory position. Small bowel obstruction.
--- NOTE | ~2024-08-13 | CT_ITS ---
EXAMINATION: CT abdomen pelvis w con DATE: 08/13/2024 22:42 INDICATION: abd pain, n/v/d TECHNIQUE: Computed tomography (CT) of the abdomen and pelvis was performed with 100 mL Omnipaque-350 intravenous contrast. Automated exposure control and iterative reconstruction technique were employe d. The dose-length product was 1567.62 mGy-cm. COMPARISON: 04/28/2021. FINDINGS: Lower thorax: Dependent atelectasis. Mild coronary artery calcification. Liver: Normal. Biliary/Gallbladder: Mild distention of the gallbladder, without inflammatory change. No bile duct di lation. Pancreas: No mass or duct dilation. Spleen: Normal. Adrenals:No mass. Kidneys: No suspicious mass, obstructing stone, or hydronephrosis. GI tract: The proximal small bowel is normal caliber. There is a transition point in the mid left abd omen (image 109/260) to dilated jejunum. The remainder of the jejunum is dilated, with a transition p oint to normal caliber ileum in the left mid abdomen (coronal image 60/145). No pneumatosis. Uniform bowel wall enhancement. Normal appendix. Minimal diverticulosis, without evidence of diverticulitis. Mesentery/Peritoneum: Small volume interloop mesenteric fluid and right paracolic gutter fluid. Retroperitoneum: No mass. Pelvis: Pelvic organs are within normal limits. Soft Tissues: Small fat-containing uncomplicated appearing umbilical hernia Bones: No acute osseous finding. IMPRESSION: Mild gallbladder hydrops without inflammatory change, presumably secondary to fasting, particularly i f biliary labs are normal. Mid small bowel obstruction, possibly secondary to adhesion or internal hernia in the left mid abdome n. Reviewed, dictated and finalized at location K. YSIS TECH IMPRESSION: Mild gallbladder hydrops without inflammatory change, presumably secondary to f asting, particularly if biliary labs are normal. Mid small bowel obstruction, possibly secondary to adhesion or internal hernia in the left mid abdomen.
--- NOTE | ~2024-08-13 | XR_ITS ---
EXAMINATION: XR abdomen gastric tube rechec DATE: 08/14/2024 16:06 INDICATION: Nasogastric tube placement. TECHNIQUE: An upright view of the abdomen was obtained. COMPARISON: CT abdomen and pelvis 08/13/2024 FINDINGS: There is dilated small bowel in the abdomen. The colon is normal in caliber. The nasogastri c tube tip is in the stomach. IMPRESSION: 1. Nasogastric tube tip in the stomach. 2. Dilated small bowel, consistent with adynamic ileus versus small bowel obstruction. Reviewed, dictated and finalized at location A. E NETWORK ENGINEER IMPRESSION: 1. Nasogastric tube tip in the stomach. 2. Dilated small bowel, consistent with adynamic ileus versus small bowel obstr uction.
--- NOTE | ~2024-08-13 | XR_ITS ---
EXAMINATION: XR sm bowel follow through WS DATE: 08/15/2024 10:09 INDICATION: Small bowel obstruction TECHNIQUE: Psychiatric Attendant radiograph(s) of the abdomen was/were obtained. Oral contrast was administered, and sequential radiographs of the abdomen were obtained until oral contrast was noted to be in the proxi mal colon. COMPARISON: CT dated 08/13/2024 FINDINGS: Psychiatric Attendant radiograph demonstrates nasogastric tube tip in proximal side port in the body the stomach. The re is gas within a few loops of nondilated small bowel. Transit time from the stomach to proximal col on was approximately 30 minutes. There is normal caliber and mucosal fold pattern throughout the smal l bowel. IMPRESSION: 1. Normal small bowel follow-through. Reviewed, dictated and finalized at location A. DROPPER
--- OUTSIDE RECORDS SUMMARY | 2024-08-13 19:03 | XMS_ITS | Data Portability ---
Author Organization [facility] [employer], Main Office Address [address] [place] [address] Care Team Providers Care Reserves Clerk Name Role Phone CLARA AMARAL Communication Spec RADHIKA BARROSO Primary Care Provider [phone] RADHIKA BARROSO Referring Provider Assessment Encounter Date Assessment Date Assessment LastModified by Organization Details LastModified Time 01/18/2023 01/18/2023 37-year-old male presents for follow-up of his left shoulder. He currently rates his pain as 3/10. At his last appointment we went ahead with ordering an MRI, as conservative measures were not helping. He has since obtained the MRI and presents today to go over the results. Imaging: MRI reviewed of the shoulder was relatively normal. There was some fraying of the posterior labrum but no discrete labral tear was visualized. Rotator cuff intact. Physical exam: He has tenderness with palpitation of the AC joint. Range of motion 150/30/upper lumbar. He has 5 out of 5 strength with resisted elevation and external rotation. Negative belly press, Negative Héctor. Positive Neer, Garcia. Negative Speed, Yergason's. The patient has good strength and range of motion, but did isolate that the pain was coming from the anterior shoulder where the AC joint is located. We discussed the risks and benefits of doing an AC joint injection. He chose to proceed with the injection today. We will see him back in 3 months to check his progress, or sooner if needed. He is in agreement with this plan. [email or web address] Not available 01/20/2023 14:48:18 Plan of Treatment Reminders Order Date Submit Date Provider Last Modified By Organization Details Last Modified Time Details Appointments None recorded. Lab None recorded. Referral None recorded. Procedures injection/a spiration joint/bursa (PROC) - in office procedure, administere d by provider 2022 023 [email or web address] 3 In-Office Order, Internal Use Only DO Not Attach Compendium DO Not Attach Compendium, Do Not Delete/merge, [id number] 3 14:53:45 Surgeries None recorded. Imaging None recorded. Medication Orders escitalopra m 10 mg tablet 2023 024 [facility] #[id number], [address], [place], [place], [id number], 4 08:50:40 escitalopra m 10 mg tablet 2022 023 [facility] #[id number], [address], [place], [place], [id number], 3 08:10:46 escitalopra m 10 mg tablet 2022 023 [facility] #44519, [address], [place], [place], [id number], 3 15:23:46 Kenalog 10 mg/mL suspension for injection [address] [facility]40690, [address], [id number], 3 23:38:55 ropivacaine (PF) 5 mg/mL (0.5 %) injection solution [address] [facility] #56867, [address], [place], [place], [id number], 3 23:38:55 Patient TargetsNo targets recorded. Patient InstructionsNo instructions recorded. Reason for Referral None Reported. Results Created Date Observation Date Name Description Value Unit Range Abnormal Flag Note LastModifiedBy Organization Detail LastModifiedTime 12/29/1912/28/2022 MRI, shoul teddy, w/o contr ast No observ ation record ed. [address] [place], [address], 12/29/2022 12:46:39 Result Notes None recorded. 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 Procedures Surgical History Date Name Laterality Status Provider Name and Address Organization Details Recorded Time 3 Ortho - Cortisone Injection completed Jana Galicia NP [address] [facility], [address] [address], [place], [address], [place] 01/20/2023 14:48:03 3 Ortho - Cortisone Injection completed Jana Galicia NP [address] [facility], [address] [address], [place], [address], [place] 11/02/2022 11:10:28 Imaging Results Imaging Date Name Status LastModified by Organiz ation Details LastModified Time 12/28/2022 MRI, shoulder, w/o contrast completed [email or web address] [place], [address], 12/29/2022 12:46:39 Procedure Notes None recorded. Medical Equipment None Reported. Allergies No known drug allergies Medications Name Sig Start Date Stop Date Status Note LastModified by Organization Details LastModified Time cyclobenzap rine 10 mg tablet TAKE 1 TABLET BY MOUTH EVERY 8 HOURS FOR MUSCLE SPASMS 12/07 completed Not Available Not Available Not Available amoxicillin 500 mg capsule 12/07 completed Not Available Not Available Not Available clindamycin HCl 300 mg capsule 09/08 completed Not Available Not Available Not Available azithromyci n 250 mg tablet TK 2 TS PO ON DAY 1, THEN TK 1 T PO D FOR 4 DAYS 09/16 completed Not Available Not Available Not Available ibuprofen 800 mg tablet TAKE 1 TABLET BY MOUTH EVERY 8 HOURS UNTIL ALL TAKEN 09/08 completed Not Available Not Available Not Available benzonatate 200 mg capsule Take 1 capsule 3 times a day by oral route as needed for 10 days. 09/16 completed Not Available Not Available Not Available hydrocodone 5 mg-acetamin ophen 325 mg tablet TAKE 1-2 TABLETS BY MOUTH EVERY 6 HOURS NEEDED 04/08 completed Not Available Not Available Not Available meloxicam 15 mg tablet TAKE 1 TABLET BY MOUTH EVERY DAY active Not Available Not Available No t Available prednisone 20 mg tablet 3 po qday x 3 days then 2 po qday x 3 days then 1 po qday x 3 then 1/2 po qday x 3 days 10/13 completed Not Available Not Available Not Available sertraline 100 mg tablet TAKE 1/2 TABLET BY MOUTH EVERY NIGHT AT BEDTIME WITH FOOD FOR 2 WEEKS. THEN INCREASE TO 1 TABLET BY MOUTH EVERY NIGHT AT BEDTIME WITH FOOD 09/16 completed Not Available Not Available Not Available acetaminoph en 300 mg-codeine 30 mg tablet TAKE 1 TO 2 TABLETS BY MOUTH EVERY 6 HOURS NEEDED FOR PAIN 09/16 completed Not Available Not Available Not Available tramadol 50 mg tablet TAKE 1 TABLET BY MOUTH EVERY 6 HOURS FOR 3 DAYS NEEDED FOR PAIN 09/16 completed Not Available Not Available Not Available acetaminoph en 500 mg tablet TK 1 T PO Q 6 H PRF FEVER AND/OR PAIN 12/07 completed Not Available Not Available Not Available oxycodone-a cetaminophe n 5 mg-325 mg tablet Take 1 tablet by oral route for 1 day. 04/08 completed Not Available Not Available Not Available alprazolam 0.5 mg tablet Take 1 tablet by oral route for 1 day. 09/16 completed Not Available Not Available Not Available famotidine 20 mg tablet TK 1 T PO D 12/07 completed Not Available Not Available Not Available Kenalog 10 mg/mL suspension for injection IN OFFICE 2022 active [facility]: 0003- 0494- 20 Not Available Not Available Not Available ibuprofen 400 mg tablet TK 1 T PO TID FEV OR PAIN FOR 10 DAYS. 12/07 completed Not Available Not Available Not Available ibuprofen 600 mg tablet 09/08 completed Not Available Not Available Not Available levofloxaci n 750 mg tablet 04/08 completed Not Available Not Available Not Available methylpredn isolone 4 mg tablets in a dose pack FOLLOW PACKAGE DIRECTION S 12/07 completed Not Available Not Available Not Available naproxen 500 mg tablet TAKE 1 TABLET BY MOUTH TWICE DAILY NEEDED FOR PAIN 12/07 completed Not Available Not Available Not Available amoxicillin 875 mg-potassiu m clavulanate 125 mg tablet TAKE 1 TABLET BY MOUTH EVERY 12 HOURS FOR 7 DAYS 12/07 completed Not Available Not Available Not Available amoxicillin 500 mg-potassiu m clavulanate 125 mg tablet 12/07 completed Not Available Not Available Not Available Ventolin HFA 90 mcg/actuati on aerosol inhaler 07/11 completed Not Available Not Available Not Available escitalopra m 10 mg tablet TAKE 1 TABLET BY MOUTH EVERY DAY active Not Available Not Available No t Available chlorhexidi ne gluconate 0.12 % mouthwash 12/07 completed Not Available Not Available Not Available ketorolac 30 mg/mL injection solution Inject 1 mL by intraveno us route. 09/16 completed Not Available Not Available Not Available ropivacaine (PF) 5 mg/mL (0.5 %) injection solution IN OFFICE 2022 active [facility] [address] -064- 01 Not Available Not Available Not Available Virtussin AC 10 mg-100 mg/5 mL oral liquid TAKE 10 ML BY MOUTH EVERY 4 HOURS NEEDED 04/08 completed Not Available Not Available Not Available Asmanex HFA 200 mcg/actuati on aerosol inhaler INHALE 1 PUFF BY MOUTH TWICE DAILY 09/16 completed Not Available Not Available Not Available Daily Probiotic (S. boulardii) 250 mg capsule 09/16 completed Not Available Not Available Not Available Ubrelvy 50 mg tablet Take 1 tablet by oral route. 10/13 completed Not Available Not Available Not Available Vitals Date Recorded Body height Body mass index (BMI) Body weight Body temperature Heart rate Oxygen saturation Oxygen saturation in Arterial blood by Pulse oximetry Systolic blood pressure Diastolic blood pressure Provider Name and Address Organization Details Last Updated DateTime 3 177.8 cm 36.3 kg/m2 214992. 87 g 98.2 [degF] 75 /min 99 % 99 % 124 mm[Hg] 72 mm[Hg] Maribel Taylor RN [facility] 3 11:44:30 Date Recorded Body height Body mass index (BMI) Body weight Pain severity - 0-10 verbal numeric rating [Score] - Reported Provider Name and Address Organization Details Last Updated DateTime 01/18/2023 177.8 cm 35.2 kg/m2 573400.13 g 2 ANASTASIA Díaz [facility] 01/18/2023 13:54:56 Date Recorded Body height Body mass index (BMI) Body weight Body temperature Heart rate Oxygen saturation Oxygen saturation in Arterial blood by Pulse oximetry Systolic blood pressure Diastolic blood pressure Provider Name and Address Organization Details Last Updated DateTime 3 177.8 cm 35.9 kg/m2 809405. 09 g 97.9 [degF] 104 /min 96 % 96 % 138 mm[Hg] 82 mm[Hg] Deven August RN [facility] 3 15:11:41 Date Recorded Body height Body mass index (BMI) Body weight Body temperature Heart rate Oxygen saturation Oxygen saturation in Arterial blood by Pulse oximetry Systolic blood pressure Diastolic blood pressure Provider Name and Address Organization Details Last Updated DateTime 3 177.8 cm 36 kg/m2 609261. 68 g 98.1 [degF] 67 /min 97 % 97 % 120 mm[Hg] 70 mm[Hg] Deven August RN [facility] 3 08:05:41 Date Recorded Body height Body mass index (BMI) Body weight Body temperature Heart rate Oxygen saturation Oxygen saturation in Arterial blood by Pulse oximetry Systolic blood pressure Diastolic blood pressure Provider Name and Address Organization Details Last Updated DateTime 4 177.8 cm 35 kg/m2 208717. 54 g 96.9 [degF] 88 /min 98 % 98 % 132 mm[Hg] 84 mm[Hg] Treasure Cummings RN [place] [facility] [employer] 4 08:35:23 Social History Question Answer Notes LastModified by Organizat ion Details LastModified Time Tobacco Smoking Status Never Smoker Not Available [facility] 08/24/2022 20:58:48 Do You Have An Advance Directive? No [id number] Information not available 08/24/2022 What Is Your Level Of Alcohol Consumption? None [id number] Information not available 08/24/2022 What Is Your Level Of Caffeine Consumption? Moderate [id number] Information not available 08/24/2022 In The 14 Days Before Symptom Onset, Have You Had Close Contact With A Laboratory-confirm ed COVID-19 While That Case Was Ill? No [id number] Information not available 08/24/2022 In The 14 Days Before Symptom Onset, Have You Had Close Contact With A Person Who Is Under Investigation For COVID-19 While That Person Was Ill? No [id number].[id number] Information not available 08/24/2022 What Type Of Diet Are You Following? REGULAR [id number].[id number] Information not available 08/24/2022 What Was The Date Of Your Most Recent Tobacco Screening? 10/13/2022 [email or web address] Information not available 10/13/2022 Do You Use Any Illicit Or Recreational Drugs? No [id number].[id number] Information not available 08/24/2022 Do You Use Sunscreen Routinely? No [id number].[id number] Information not available 08/24/2022 Has Tobacco Cessation Counseling Been Provided? No MIGRATION.[id number] Information not available 08/24/2022 Have You Recently Traveled Abroad? No MIGRATION.[id number] 3146 Information not available 08/24/2022 Do You Have Any Dietary Restrictions? No MIGRATION.033935 0574 Information not available 08/24/2022 Do You Or Have You Ever Used Any Other Forms Of Tobacco Or Nicotine? No MIGRATION.[id number] Information not available 08/24/2022 Sex: Unknown Functional Status Question Answer Note LastModified by Organizat ion Details LastModified Time What is your exercise level? Heavy [id number] Information not available 08/24/2022 Mental Status None recorded. Family History Relationship Description Onset Age of this Age Resolved Age Notes LastModified by Organization Details LastModified Time Mother Diabetes mellitus [email or web address] Not available 2022 10:11:12 Medical History No medical history recorded. Past Encounters Encounter ID Performer Location Encounter Start Date Encounter Closed Date Diagnosis/Indication Diagnosis SNOMED-CT Code Diagnosis ICD10 Code Diagnosis Note [id number] [facility] [place] [address] [facility] [address] [place] [address] 12/07/2020 00:00:00 12/22/2020 15:48:04 [id number] [facility] [address] [address] 12/23/2020 00:00:00 12/23/2020 11:38:35 [id number] [facility] [address] [address] 01/06/2021 00:00:00 01/06/2021 12:24:00 [id number] [facility] [place] [address] [place] [address] [address] [place] [address] 02/17/2021 00:00:00 02/22/2021 19:13:13 [id number] [facility] [place] [address] [place] [address] [address] [place] [address] 04/08/2021 00:00:00 04/14/2021 11:32:53 [id number] [facility] [place] [address] [facility] [address] [place] [address] 05/12/2021 00:00:00 05/17/2021 10:06:50 [id number] [facility] [place] [address] [facility] [address] [place] [address] 02/22/2022 00:00:00 02/22/2022 12:22:03 [id number] Radhika Barroso MD [facility] Primary Care [address] [place] [address] 09/08/2022 10:45:01 09/08/2022 11:26:45 Pain of left shoulder joint 0451314905 8035022 M25.512 work related shoulder painno overhead work and 10 pound lifting restrictio northo referral givenrestr iction from completed- restrictio ns start today and will be lifted when released by orthopredn isone taper with food, avoid other nsaidsok to continue biofreeze [id number] Jana Galicia NP [facility] [place] [address] [place] [address] 09/16/2022 10:00:53 09/16/2022 10:45:38 Pain of left shoulder joint 7463476664 8404346 M25.512 [id number] Radhika Barroso MD [address] [facility] [place] [address] 10/13/2022 16:16:36 10/13/2022 16:55:13 Adult health examination 269297455 Z00.00 Z13.220 Z13.1 Recommend yearly flu vaccine and covid boosterChe ck fasting labs Pain of le ft shoulder joint 9911309838 3477666 M25.512 work related shoulder painno overhead work and 10 pound lifting restrictio ncontinue to follow up with orthorestr iction from completed- restrictio ns start today and will be lifted when released by orthopredn isone taper with food, avoid other nsaidsok to continue biofreeze [id number] Jana Galicia NP [facility] [place] [address] [place] [address] 10/28/2022 09:23:55 10/28/2022 09:45:47 Pain of left shoulder joint 5121070978 2378467 M25.512 [id number] Radhika Barroso MD [address] [place] [address] 11/22/2022 08:08:11 11/22/2022 10:27:32 Pain of left shoulder joint 7440691563 2144001 M25.512 work related shoulder painno overhead work and 10 pound lifting restrictio ncontinue to follow up with ortho (next scheduled appt on 12/09/22)re striction from completed- restrictio ns start today and will be lifted when released by orthof/u in 4 weeks or sooner if needed [id number] Tanner Mckenzie MD [facility] [place] [address] [place] [address] 12/09/2022 09:08:35 12/09/2022 09:42:22 Pain of left shoulder joint 3574882695 0032194 M25.512 [id number] ISABEL Mon [facility] Primary Care [facility] [address] [facility] [address] [place] [address] 12/30/2022 11:36:16 12/30/2022 15:16:28 Acute situational disturbance 475925673 F43.20 Currently going through possible separation /divorce.Alexandr dumont has not had a hx of anxiety/de pression. He is planning to start counseling through work along with his , not interested in any other individual counseling at this time.Plan to complete FMLA for personal leave from 12/20/22-.Advi sed to follow-up if we need to address symptoms further. [id number] Jana Galicia NP [facility] [place] [address] [place] [address] 01/18/2023 13:53:17 01/18/2023 14:29:52 Osteoarthritis of left acromioclavicular joint 8649320285 715448 M19.012 [id number] Radhika Barroso MD [facility] Primary Care [facility] [address] [facility] [address] [place] [address] 01/31/2023 15:04:54 01/31/2023 15:29:10 Acute situational disturbance 530933052 F43.20 On leave from 01/26/23 return to work with shoulder restrictio ns on 02/26/23Begi n escitalopr am 10 mg daily with foodReview ed potential med s/e, d/c and be seen if any si/hif/u in 4 weeks or sooner if needed [id number] Radhika Barroso MD [facility] Primary Care [address] [place] [address] 02/21/2023 08:01:03 02/21/2023 08:14:14 Acute situational disturbance 700815431 F43.20 ImprovingO n leave from 01/26/23 return to work without restrictio ns on 02/26/23Cont inue escitalopr am 10 mg daily with foodReview ed potential med s/e, d/c and be seen if any si/hi at last apptf/u in 6 weeks or sooner if needed [id number] Chadd Lenz, DIRECTOR OF MANAGED SERVICES-C [facility] Primary Care [address] [place] [address] 08/15/2023 08:27:52 08/15/2023 08:46:27 Acute situational disturbance 458506858 F43.20 -pt has been using escitalopr am 10mg with positive results-ra n out of the medication a couple weeks ago and is needing a refill-rec ently noted an emotional outburst at work and is not needing to take time off-FMLA paperwork filled out- wanting to be out from 08-10 to -refil l escitalopr am given Health Concerns Section Related Observation LastModified by Organization Detai ls LastModified Time None Recorded Concern Status LastModified by Organization Details LastModified Time None Recorded Advance Directives Directive N: Payers Encounter Date Sequence Insurance Name Policy Number Policy Meredith Covered Member ID Meredith Member ID Guarantor Name 12/30/2022 2 [place] Reinaldo Michelle [id number] Reinaldo Michelle 01/18/2023 PAKO Michelle 01/31/2023 2 [place] Reinaldo Michelle [id number] Reinaldo Michelle 01/31/2023 1 [place] [id number] Reinaldo Michelle [id number] Reinaldo Michelle 02/21/2023 2 [place] Reinaldo Michelle [id number] Reinaldo Michelle 02/21/2023 1 [place] [id number] Reinaldo Michelle [id number] 01 Reinaldo Michelle 08/15/2023 2 [place] [facility] [place] Reinaldo Michelle [id number] Reinaldo Michelle 08/15/2023 1 [place] [id number] Reinaldo Michelle [id number] 01 Reinaldo Michelle Notes Date Note Type Note Provider Name and Address Organization Details Recorded Time 12/30/2022 text/html Pt. here to discuss FMLA (personal leave of absence due to life situation causing anxiety/panic attacks). He states he is considering going through a divorce so there has been a lot of stress. He states he missed work 12/20/22-01/10/23 and needs FMLA paperwork completed. He has not had a history of anxiety/depression or have been treated for it. His work is setting up marriage counseling because they pay for the first 5 sessions. ISABEL Mon [address] [email or web address], [place], [address], [place] 12/30/2022 12:10:32 01/31/2023 text/html Estranged from , but trying to work things out. She has taken a trip to see a friend in [place] and now she wants to leave him and the children. He is on light duty at work for left shoulder and is getting harassed by co-workers about it. He was so stressed about it that his HR rep told him to take a leave for mental health. Sleep is poor, he is stressed. No si/hi. He started smoking again, +panic attacks. Focus/concentratio n is ok, motivation is down. No irritability. Last day of work was 01/25/23. Radhika Barroso MD [address], [place], [address], [place] 02/01/2023 09:13:20 02/21/2023 text/html Estranged from , but trying to work things out. She has taken a trip to see a friend in [place] and now she wants to leave him and the children. He is on light duty at work for left shoulder and is getting harassed by co-workers about it. He was so stressed about it that his HR rep told him to take a leave for mental health. Sleep is poor, he is stressed. No si/hi. He started smoking again, +panic attacks. Focus/concentratio n is ok, motivation is down. No irritability. Last day of work was 01/25/23. update 02/21/23: He is feeling better with escitalopram 10 mg daily. He thinks this dosage is working well for him. Mood is much improved, he does believe he will be able to return to work when leave ends on 02/26/23. Radhika Barroso MD [address], [place] [address], [place], [address], [employer] [facility] [employer] 02/21/2023 08:12:42 08/15/2023 text/html PT is here to discuss [facility] paperwork BHUPINDER Martínez [address], [facility] [address], [place], [address], [place] 08/15/2023 08:51:09
[2024-08-13 19:15] VITALS: BP 122/78; PULSE 73; RESP 20; TEMP 36.4; O2SAT 99
[2024-08-13 20:13] LABS: Basophils Absolute Auto 0.1 K/mm3 (0.0-0.1); Basophils Percent Auto 0.4 % (0.2-1.2); Eosinophils Absolute Auto 0.2 K/mm3 (0-0.3); Eosinophils Percent Auto 1.1 % (0-4.4); Hematocrit 48.8 % (42.0-52.0); Hemoglobin 16.5 g/dL (14.0-18.0); Immature Granulocyte Absolute 0.08 K/mm3 (0.00-0.031); Immature Granulocyte Percent A 0.6 % (0-0.5); Lymphocytes Absolute Auto 1.84 K/mm3 (0.9-3.2); Lymphocytes Percent Auto 12.8 % (18.3-44.2); Mean Corpuscular HGB Conc 33.8 g/dl (32-36); Mean Corpuscular Hemoglobin 29.5 pg (26-34); Mean Corpuscular Volume 87.3 fl (80-100); Mean Platelet Volume 9.9 fl (7.4-10.4); Monocytes Absolute Auto 0.9 K/mm3 (0.1-0.6); Monocytes Percent Auto 6.3 % (2.6-8.5); Neutrophils Absolute Auto 11.3 K/mm3 (1.3-6.7); Neutrophils Percent Auto 78.8 % (45.5-73.1); Platelet Count Result 393 k/mm3 (150-375); Red Blood Count 5.59 M/mm3 (4.6-6.20); White Blood Count 14.4 K/mm3 (4.5-10.0)
[2024-08-13 20:22] VITALS: BP 107/78; PULSE 80; RESP 16; O2SAT 96
[2024-08-13 20:24] LABS: Alanine Aminotransferase 54 U/L (6-50); Albumin Level 4.5 g/dL (3.5-5.1); Alkaline Phosphatase 88 U/L (38-126); Anion Gap 11 mmol/L (4-12); Aspartate Amino Transferase 34 U/L (17-59); Bilirubin,Total 0.6 mg/dL (0.2-1.3); Blood Urea Nitrogen 15 mg/dL (9-20); Calcium 9.7 mg/dL (8.4-10.2); Carbon Dioxide 30 mmol/L (22-30); Chloride 101 mmol/L (98-107); Estimated CRCL calculation 102 ml/min; Estimated Glomerular Filt Rate > 60; Glucose 107 mg/dL (65-110); Lipase 62 U/L (23-300); Magnesium 2.2 mg/dL (1.6-2.3); Potassium 3.9 mmol/L (3.4-5.0); Sodium 142 mmol/L (137-145)
--- NOTE | 2024-08-13 20:25 | PC.NURSE ---
Pt. states he is unable to provide a urine sample at this time. ISABEL post.
--- NOTE | 2024-08-13 20:34 | ED_ITS ---
HPI - Abdominal Pain General Chief Complaint: Abdominal Pain Stated Complaint: sent by brendan FERRER pain Time Seen by Provider: 08/13/24 19:57 Source: patient Mode of arrival: ambulatory Limitations: no limitations History of Present Illness HPI narrative: Patient is a 38-year-old male who presents the ED with report of N/V/D. Patient reports he began feeling ill on Monday. Developed nausea, vomiting, diarrhea, reports diffuse lower abdominal pain. States several family members had similar symptoms, which lasted for approx 24 hours before improving. Patient's sx's have since persisted. He states he has been unable to keep down any food or drink since then. Reports hot flashes, denies known fever. Denies rectal bleeding or melena. Denies cough or cold symptoms. Related Data Home Medications ?Medication ?Instructions ?Recorded ?Confirmed ?Last Taken ?Type tramadol 50 mg tablet 50 mg PO Q6H PRN pain 01/21/21 01/21/21 Unknown History Allergies Allergy/AdvReac Type Severity Reaction Status Date / Time No Known Allergies Allergy Verified 08/13/24 19:12 Review of Systems 2 Review of Systems: All systems reviewed & are unremarkable except as noted in HPI. All systems reviewed & are unremarkable except as noted in HPI and below PMFSH Past Medical History Medical History Obesity Surgical History Surgical History Hx of vasectomy Family History Family History Mother Diabetes mellitus Social History Social History Smoking status: Current every day smoker Tobacco type: cigarettes Alcohol intake: never Substance use: never Substance use type: does not use Do You Feel Safe in your Home?: Yes Lack of Transportation: No Lack of Food: Never True Current Housing: I Have Housing Concerned About Future Housing: No Difficulty Paying Gas/Electric Bills: No Difficulty Paying for Meds: No Currently Unemployed: No Education: High School Diploma/GED Difficulty w/ Childcare or Family Care: No Living arrangements: with family Additional living arrangements comments: Lives in [place] with his and 4 children. Occupation/Education: occupation Gender identity (if verbalized by the patient): Male Spiritual care concerns: No Exam 2 Narrative: GENERAL: Well appearing, obese with BMI of 36.7, non-toxic, in no acute distress. HEAD: Normocephalic, atraumatic. RESPIRATORY: Airway patent, respirations nonlabored. Clear to auscultation bilaterally, no rales, rhonchi, wheezing. CARDIOVASCULAR: Regular rate and rhythm without murmurs, rubs, or gallops. ABDOMINAL: Mild diffuse tenderness throughout abdomen, slightly distended. Normoactive BS. MUSCULOSKELETAL: Moves all extremities. No gross deformities. SKIN: Warm, dry, normal color. NEURO: A&O X3. Speech clear. Cranial nerves II-XII grossly intact. Steady gait. No ataxic movements. PSYCHIATRIC: Appropriate mood and affect. Normal interaction. Course Vital Signs Vital signs: Vital Signs Temperature 97.6 F 08/13/24 19:15 Pulse Rate 73 08/13/24 19:15 Respiratory Rate 20 08/13/24 19:15 Blood Pressure 122/78 08/13/24 19:15 Pulse Oximetry 99 08/13/24 19:15 Temperature 97.7 F 08/14/24 01:11 Pulse Rate 69 08/14/24 01:11 Respiratory Rate 20 08/14/24 01:11 Blood Pressure 120/75 08/14/24 01:11 Pulse Oximetry 97 08/14/24 01:11 MDM - Abdominal Pain MDM Narrative Medical decision making narrative: Patient presented to ED with several day history of nausea, vomiting, diarrhea, reports family members have had similar symptoms but their sx's have resolved. VSS upon arrival. Patient in no acute distress. CBC with white blood cell count of 14.4. Per records, patient does appear to have a chronic leukocytosis in the past. CMP is unremarkable. Stable electrolytes. Stable kidney function. No significant signs of dehydration. Normal LFTs and lipase. Viral swabs are negative. UA with trace ketones, no signs of infection. CT scan of abdomen/pelvis was obtained: Mild gallbladder hydrops without inflammatory change, presumably secondary to fasting, particularly if biliary labs are normal. Mid small bowel obstruction, possibly secondary to adhesion or internal hernia in the left mid abdomen. Does show transition point in left mid abdomen. Patient denies any previous abdominal surgeries. No focal RUQ tenderness on exam. LFTs are WNL. Patient has had decreased intake over the past several days. Suspect hydrops r/t fasting. Patient given 2 L of fluid in the ED, morphine, Zofran. On re-evaluation he is reporting persistent pain. Will give additional pain control. Will place NG tube and admit for further evaluation. Discussed case with Dr. Ramos, general surgery, will admit under his service. NPO. Maintenance fluids ordered as well as prn pain medication. Patient is in agreement with plan and need for admission. Medical Records Attestation: I reviewed the patient's medical records. Lab Data Attestation: I reviewed the patient's lab results. 08/13/24 20:00 08/13/24 20:00 Labs: Lab Results 08/13/24 08/13/24 08/13/24 Range/Units 20:00 20:00 20:08 WBC 14.4 H (4.5-10.0) K/mm3 RBC 5.59 (4.6-6.20) M/mm3 Hgb 16.5 (14.0-18.0) g/dL Hct 48.8 (42.0-52.0) % MCV 87.3 (80-100) fl MCH 29.5 (26-34) pg MCHC 33.8 (32-36) g/dl RDW 13.0 (11.5-14.5) % Plt Count 393 H (150-375) k/mm3 MPV 9.9 (7.4-10.4) fl Immature Gran % (Auto) 0.6 H (0-0.5) % Neut % (Auto) 78.8 H (45.5-73.1) % Lymph % (Auto) 12.8 L (18.3-44.2) % [place] % (Auto) 6.3 (2.6-8.5) % Eos % (Auto) 1.1 (0-4.4) % Baso % (Auto) 0.4 (0.2-1.2) % Lymph # (Auto) 1.84 (0.9-3.2) K/mm3 [place] # (Auto) 0.9 H (0.1-0.6) K/mm3 Eos # (Auto) 0.2 (0-0.3) K/mm3 Baso # (Auto) 0.1 (0.0-0.1) K/mm3 Abs Immat Gran (auto) 0.08 H (0.00-0.031) K/mm3 Absolute Neuts (auto) 11.3 H (1.3-6.7) K/mm3 Absolute Nucleated RBC 0.000 (0.0-0.012) K/mm3 Nucleated RBC % 0.0 (0.0-0.2) % Sodium 142 (137-145) mmol/L Potassium 3.9 (3.4-5.0) mmol/L Chloride 101 (98-107) mmol/L Carbon Dioxide 30 (22-30) mmol/L Anion Gap 11 (4-12) mmol/L BUN 15 D (9-20) mg/dL Creatinine 1.11 (0.7-1.3) mg/dL Estim Creat Clear Calc 102 ml/min Estimated GFR > 60 (59 - ) Glucose 107 (65-110) mg/dL Lactic Acid 1.0 (0.7-2.0) mmol/L Calcium 9.7 (8.4-10.2) mg/dL Magnesium 2.2 Cancelled (1.6-2.3) mg/dL Total Bilirubin 0.6 (0.2-1.3) mg/dL AST 34 (17-59) U/L ALT 54 H (6-50) U/L Alkaline Phosphatase 88 (38-126) U/L Total Protein 8.0 (6.3-8.2) g/dL Albumin 4.5 (3.5-5.1) g/dL Lipase 62 (23-300) U/L Urine Color (Yellow) Urine Appearance (Clear) Urine pH (5.0-9.0) Ur Specific [place] (1.001-1.035) Urine Protein (Negative) mg/dL Urine Glucose (UA) (Negative) mg/dL Urine Ketones (Negative) mg/dL Ur Blood (Man) (Negative) Urine Nitrate (Negative) Urine Bilirubin (Negative) Urine Urobilinogen (<2.0) mg/dL Leukocyte Esterase Rfl (Negative) SUREKHA/UL Urine RBC (0-2) /hpf Urine WBC (0-3) /hpf Ur Squamous Epith Cells (Few) /hpf Urine Bacteria /hpf Urine Casts Urine Opiates Screen (Negative) Urine Methadone Screen (Negative) Ur Barbiturates Screen (Negative) Ur Phencyclidine Scrn (Negative) Ur Amphetamine Screen (Negative) U Benzodiazepines Scrn (Negative) Urine Cocaine Screen (Negative) U Cannabinoids Screen (Negative) Influenza A (RT-PCR) Negative (Negative) Influenza B (RT-PCR) Negative (Negative) RSV (RT-PCR) Negative (Negative) SARS-CoV-2 RNA (RT-PCR) Negative (Negative) 08/13/24 Range/Units 21:55 WBC (4.5-10.0) K/mm3 RBC (4.6-6.20) M/mm3 Hgb (14.0-18.0) g/dL Hct (42.0-52.0) % MCV (80-100) fl MCH (26-34) pg MCHC (32-36) g/dl RDW (11.5-14.5) % Plt Count (150-375) k/mm3 MPV (7.4-10.4) fl Immature Gran % (Auto) (0-0.5) % Neut % (Auto) (45.5-73.1) % Lymph % (Auto) (18.3-44.2) % [place] % (Auto) (2.6-8.5) % Eos % (Auto) (0-4.4) % Baso % (Auto) (0.2-1.2) % Lymph # (Auto) (0.9-3.2) K/mm3 [place] # (Auto) (0.1-0.6) K/mm3 Eos # (Auto) (0-0.3) K/mm3 Baso # (Auto) (0.0-0.1) K/mm3 Abs Immat Gran (auto) (0.00-0.031) K/mm3 Absolute Neuts (auto) (1.3-6.7) K/mm3 Absolute Nucleated RBC (0.0-0.012) K/mm3 Nucleated RBC % (0.0-0.2) % Sodium (137-145) mmol/L Potassium (3.4-5.0) mmol/L Chloride (98-107) mmol/L Carbon Dioxide (22-30) mmol/L Anion Gap (4-12) mmol/L BUN (9-20) mg/dL Creatinine (0.7-1.3) mg/dL Estim Creat Clear Calc ml/min Estimated GFR (59 - ) Glucose (65-110) mg/dL Lactic Acid (0.7-2.0) mmol/L Calcium (8.4-10.2) mg/dL Magnesium (1.6-2.3) mg/dL Total Bilirubin (0.2-1.3) mg/dL AST (17-59) U/L ALT (6-50) U/L Alkaline Phosphatase (38-126) U/L Total Protein (6.3-8.2) g/dL Albumin (3.5-5.1) g/dL Lipase (23-300) U/L Urine Color Dark yellow (Yellow) Urine Appearance Cloudy H (Clear) Urine pH 5.5 (5.0-9.0) Ur Specific [place] 1.025 (1.001-1.035) Urine Protein Trace (Negative) mg/dL Urine Glucose (UA) Negative (Negative) mg/dL Urine Ketones Trace H (Negative) mg/dL Ur Blood (Man) Negative (Negative) Urine Nitrate Negative (Negative) Urine Bilirubin Negative (Negative) Urine Urobilinogen 1.0 (<2.0) mg/dL Leukocyte Esterase Rfl Negative (Negative) SUREKHA/UL Urine RBC 6-10 H (0-2) /hpf Urine WBC 0-5 (0-3) /hpf Ur Squamous Epith Cells None seen (Few) /hpf Urine Bacteria None seen /hpf Urine Casts 0-2 Urine Opiates Screen Positive A (Negative) Urine Methadone Screen Negative (Negative) Ur Barbiturates Screen Negative (Negative) Ur Phencyclidine Scrn Negative (Negative) Ur Amphetamine Screen Negative (Negative) U Benzodiazepines Scrn Negative (Negative) Urine Cocaine Screen Negative (Negative) U Cannabinoids Screen Negative (Negative) Influenza A (RT-PCR) (Negative) Influenza B (RT-PCR) (Negative) RSV (RT-PCR) (Negative) SARS-CoV-2 RNA (RT-PCR) (Negative) Imaging Data Attestation: I personally reviewed and interpreted this imaging study as follows: Radiologist's impression: ITS Impressions Abdomen/Pelvis CT 08/13/24 23:00 IMPRESSION: Mild gallbladder hydrops without inflammatory change, presumably secondary to fasting, particularly if biliary labs are normal. Mid small bowel obstruction, possibly secondary to adhesion or internal hernia in the left mid abdomen. Discharge Plan Discharge Clinical Impression: Small bowel obstruction Patient Disposition: Still a Patient Condition: Stable
[2024-08-13] MEDS: ONDANSETRON INJ 4 MG/2 ML VIAL IV PUSH (20:36)
[2024-08-13] MEDS: MORPHINE SULFATE (*CRX) 4 MG/ML INJ IV PUSH (20:36)
[2024-08-13] MEDS: SODIUM CHLORIDE 0.9% IV 1,000 ML 999 ML IV CONT ×2 (20:36→20:37)
[2024-08-13 20:59] LABS: Influenza A QL RT-PCR Negative (Negative); Influenza B QL RT-PCR Negative (Negative); RSV RNA, RT-PCR Negative (Negative); SARS-CoV-2 RNA PCR Negative (Negative)
[2024-08-13 22:24] LABS: Add Urine Microscopic? YES; Appearance Urine Cloudy (Clear); Bacteria Urine None Seen /hpf; Bilirubin Urine Negative (Negative); Blood Urine Negative (Negative); Color Urine Dark Yellow (Yellow); Glucose Urine UA Negative (Negative); Ketones Urine Trace mg/dL (Negative); Leukocyte Esterase Ur Negative LEU/UL (Negative); Nitrate Urine Negative (Negative); Non Pathogenic Casts 0-2; Protein Urine Trace mg/dL (Negative); Specific Grav Ur 1.025 (1.001-1.035); Squamous Epithelial Cell Urine None Seen /hpf (Few); WBC Urine 0-5 /hpf (0-3); pH Urine 5.5 (5.0-9.0)
[2024-08-13 22:28] LABS: Barbiturate Screen Urine Negative (Negative); Benzodiazepines Screen Urine Negative (Negative)
[2024-08-13 22:41] LABS: Amphetamine Screen Urine Negative (Negative); Cannabinoid Screen Urine Negative (Negative); Cocaine Screen Urine Negative (Negative); Methadone Screen Urine Negative (Negative); Opiate Screen Urine Positive (Negative); Phencyclidine Screen Urine Negative (Negative)
[2024-08-13 22:49] VITALS: BP 118/71; PULSE 78; RESP 16; O2SAT 99
[2024-08-14] MEDS: SODIUM CHLORIDE 0.9% IV 1,000 ML 125 ML IV CONT ×3 (00:09→18:49)
[2024-08-14] MEDS: HYDROmorphone HCL INJ (*CRX) 1 MG/ML SYR IV PUSH ×2 (00:10→05:08)
[2024-08-14 00:54] VITALS: BP 138/89; PULSE 94; RESP 14; O2SAT 95
[2024-08-14 01:05] VITALS: BMI 36.6
--- NOTE | 2024-08-14 01:06 | ADMGEN ---
This patient, Reinaldo Michelle, was admitted to Medical Room 255-. Patient/family oriented to hospital policies and general routines including ID bracelet, bed and alarms, visiting hours, pain management, procedures, bathroom and other care routines, personal items, smoking policy, room service/diet, and visiting hours. Information on how to activate the Rapid Response Team has been discussed. Patient/Family are encouraged to report perceived risks to care and to ask questions if they do not understand what they are told or what they should do.
[2024-08-14 01:11] VITALS: BP 120/75; PULSE 69; RESP 20; TEMP 36.5; O2SAT 97
[2024-08-14 03:51] VITALS: BP 117/62; PULSE 58; RESP 20; TEMP 36.5; O2SAT 98
--- NOTE | 2024-08-14 08:58 | P.HP_ITS ---
H&P: HPI History of Present Illness Date/Time: 08/14/24 08:58 Chief Complaint: Abdominal pain Narrative: This is a 38-year-old man who presented to the ED last night with complaints of abdominal pain, vomiting, and diarrhea. He developed vomiting and diarrhea 5 days ago. His and 2 daughters all developed similar symptoms that same day. Reports having some abdominal pain and cramping in his lower abdomen later that evening. His vomiting improved the following day, but his diarrhea has persisted. His family's symptoms improved. After a few days of diarrhea, but no vomiting, he reports that his abdominal pain became more severe and he had another episode of vomiting. He denies any blood in his stool or emesis. His pain vomiting persisted therefore he try to go to urgent care yesterday. He vo mited again in the urgent care and they directed him to the ED for evaluation. In the ED, vital signs were stable. Labs showed a white blood cell count of 14,400. UA negative for UTI. Influenza a/B, RSV, and COVID negative. CT scan of the abdomen and pelvis showed mild gallbladder hydrops without inflammatory change, presumably secondary to fasting, particularly of biliary labs are normal. Mid small-bowel obstruction, possibly secondary to adhesion or internal hernia in the left mid abdomen. He was admitted in this setting and an NG tube has been placed. This was confirmed with an abdominal x-ray. It appears he has had about 400 cc out of the NG tube since it was placed earlier this morning. He is feeling much better after having the NG tube placed. He reports his abdominal pain has significantly improved. He did receive IV Dilaudid around 5:00 a.m., but reports this was more for throat discomfort from the NG tube rather than abdominal pain. He is passing flatus. No bowel movement since admission, but reports having a liquid bowel movement yesterday prior to admission. No previous abdominal surgeries. No previous small-bowel obstructions. Review of Systems Review of Systems: All systems reviewed & are unremarkable except as noted in HPI and below PMFSH Past Medical History Medical History Obesity Surgical History Surgical History History of incision and drainage 2020 - I&D for mandibular abscess Hx of vasectomy Family History Family History Mother Diabetes mellitus Social History Social History Smoking status: Current every day smoker Tobacco type: cigarettes Alcohol intake: never Substance use: never Substance use type: does not use Do You Feel Safe in your Home?: Yes Lack of Transportation: No Lack of Food: Never True Current Housing: I Have Housing Concerned About Future Housing: No Difficulty Paying Gas/Electric Bills: No Difficulty Paying for Meds: No Currently Unemployed: No Education: High School Diploma/GED Difficulty w/ Childcare or Family Care: No Living arrangements: with family Additional living arrangements comments: Lives in [place] with his and 4 children. Occupation/Education: occupation Gender identity (if verbalized by the patient): Male Spiritual care concerns: No Meds Home Medications and Allergies Home Medications ?Medication ?Instructions ?Recorded ?Confirmed ?Type No Home Medications 08/14/24 08/14/24 History Allergies Allergy/AdvReac Type Severity Reaction Status Date / Time No Known Allergies Allergy Verified 08/13/24 19:12 Vital Signs Vital Signs - 24 hr 08/13/24 19:15 08/13/24 20:22 08/13/24 22:49 Temperature 97.6 F Pulse Rate 73 80 78 Respiratory Rate 20 16 16 Blood Pressure 122/78 107/78 118/71 Pulse Oximetry 99 96 99 Oxygen Delivery 08/14/24 00:54 08/14/24 01:11 08/14/24 01:45 Temperature 97.7 F Pulse Rate 94 69 Respiratory Rate 14 20 Blood Pressure 138/89 120/75 Pulse Oximetry 95 97 Oxygen Delivery Room Air 08/14/24 03:51 Temperature 97.7 F Pulse Rate 58 L Respiratory Rate 20 Blood Pressure 117/62 Pulse Oximetry 98 Oxygen Delivery Exam Const: General: comfortable and no acute distress Nutritional Appearance: average body habitus Orientation/consciousness: patient oriented x3 HENMT: Head: normocephalic and atraumatic Ears: hearing grossly normal bilaterally Mouth: Yes moist mucous membranes Eyes: General: appearance normal, both eyes and all related structures Pupils: Equal, round and reactive pupils present Neck: Neck: normal visual inspection and full ROM Resp: Effort & Inspection: no respiratory distress Auscultation: clear to auscultation bilaterally Cardio: Rate: regular rate Rhythm: regular rhythm Peripheral pulses: Peripheral pulses 2+ throughout GI: Inspection: non-distended and no scars GI Palp: Yes Soft to palpation, No Tenderness to palpation present (GI) (very mild tenderness in lower abdomen), No Guarding due to palpation present (GI) and No Rebound tenderness present Percussion: Yes normal to percussion Auscultation: Hypoactive bowel sounds present Skin: General skin exam: normal color Neuro: General: moves all extremities and no focal motor deficits Speech: normal speech Motor exam (neuro): 5/5 motor strength present throughout Extrem: General: normal to inspection and no edema Psych: Mental Status: mental status grossly normal Attitude: cooperative Insight: Good insight present (Psych) Judgement: Good judgement present (Psych) H&P: Results Labs Labs: Short CBC 08/13/24 Range/Units 20:00 WBC 14.4 H (4.5-10.0) K/mm3 Hgb 16.5 (14.0-18.0) g/dL Hct 48.8 (42.0-52.0) % Plt Count 393 H (150-375) k/mm3 BMP 08/13/24 20:00 Sodium 142 Potassium 3.9 Chloride 101 Carbon Dioxide 30 BUN 15 D Creatinine 1.11 Glucose 107 Calcium 9.7 Liver Function 08/13/24 Range/Units 20:00 Total Bilirubin 0.6 (0.2-1.3) mg/dL AST 34 (17-59) U/L ALT 54 H (6-50) U/L Alkaline Phosphatase 88 (38-126) U/L Albumin 4.5 (3.5-5.1) g/dL Urine 08/13/24 Range/Units 21:55 Urine Color Dark yellow (Yellow) Urine Appearance Cloudy H (Clear) Urine pH 5.5 (5.0-9.0) Ur Specific [place] 1.025 (1.001-1.035) Urine Protein Trace (Negative) mg/dL Urine Glucose (UA) Negative (Negative) mg/dL Imaging CT scan - abdomen: Radiologist's impression: ITS Impressions Abdomen/Pelvis CT 08/13/24 23:00 IMPRESSION: Mild gallbladder hydrops without inflammatory change, presumably secondary to fasting, particularly if biliary labs are normal. Mid small bowel obstruction, possibly secondary to adhesion or internal hernia in the left mid abdomen. Abdomen X-Ray 08/14/24 05:32 Impression: NG tube in satisfactory position. Small bowel obstruction. Assessment and Plan Assessment and plan (1) Small bowel obstruction: Code(s): K56.609 - Unspecified intestinal obstruction, unspecified as to partial versus complete obstruction Status: Acute Assessment and Plan: CT scan of the abdomen and pelvis showed dilated small bowel with a transition point in the left mid abdomen consistent with a mid small bowel obstruction. He has never had any abdominal surgery to cause intra-abdominal adhesions. His symptoms also started with vomiting and diarrhea 5 days ago, when everyone else in his household also has similar symptoms. His presentation is more consistent with gastroenteritis as he has continued to have diarrhea daily for the past 5 days. He is already clinically improving with NG tube decompression. There are no peritoneal signs on exam or signs of a high-grade small bowel obstruction. Will repeat labs this morning. Continue NG tube decompression, bowel rest, and IV fluids for today. I ordered a water-soluble small bowel follow through for tomorrow morning. If this moves through without evidence of an obstruction, then we can remove his NG tube and start a liquid diet. Plan I have discussed the patient's case and plan of care with Dr. Ramos.
[2024-08-14] MEDS: PHENOL/SOD PHENO SPRAY CHERRY (*BKC) 1 SPRAY MUCOUS MEM (12:46)
[2024-08-14 14:00] VITALS: BP 117/66; PULSE 98; RESP 18; TEMP 37.3; O2SAT 93
[2024-08-14] MEDS: MORPHINE SULFATE (*CRX) 2 MG/ML INJ IV PUSH (15:35)
[2024-08-14 21:01] VITALS: BP 122/64; PULSE 97; RESP 18; TEMP 37.8; O2SAT 94
[2024-08-15] MEDS: SODIUM CHLORIDE 0.9% IV 1,000 ML 125 ML IV CONT (03:02)
[2024-08-15] MEDS: HYDROmorphone HCL INJ (*CRX) 1 MG/ML SYR 0.5 MG IV PUSH (04:02)
[2024-08-15 05:37] VITALS: BP 128/71; PULSE 90; RESP 16; TEMP 37; O2SAT 95
[2024-08-15 06:22] LABS: Hematocrit 40.9 % (42.0-52.0); Hemoglobin 14.1 g/dL (14.0-18.0); Mean Corpuscular HGB Conc 34.5 g/dl (32-36); Mean Corpuscular Hemoglobin 30.3 pg (26-34); Mean Corpuscular Volume 87.8 fl (80-100); Mean Platelet Volume 10.2 fl (7.4-10.4); Platelet Count Result 352 k/mm3 (150-375); Red Blood Count 4.66 M/mm3 (4.6-6.20); Red Cell Distribution Width 13.1 % (11.5-14.5); White Blood Count 13.2 K/mm3 (4.5-10.0)
[2024-08-15 06:42] LABS: Anion Gap 10 mmol/L (4-12); Blood Urea Nitrogen 9 mg/dL (9-20); Calcium 8.5 mg/dL (8.4-10.2); Carbon Dioxide 27 mmol/L (22-30); Chloride 102 mmol/L (98-107); Estimated CRCL calculation 113 ml/min; Estimated Glomerular Filt Rate > 60; Glucose 74 mg/dL (65-110); Potassium 3.3 mmol/L (3.4-5.0); Sodium 139 mmol/L (137-145)
[2024-08-15] MEDS: POTASSIUM CHLORIDE INJ 40 MEQ in SODIUM CHLORIDE 0.9% IV 500 ML 130 MEQ IVPB (08:54)
[2024-08-15 14:00] VITALS: BP 96/43; PULSE 69; RESP 18; TEMP 36.9; O2SAT 95
--- NOTE | 2024-08-15 15:30 | P.PNGS_ITS ---
Progress Note: A&P Assessment and Plan (1) Small bowel obstruction: Code(s): K56.609 - Unspecified intestinal obstruction, unspecified as to partial versus complete obstruction Status: Acute Assessment and Plan: * Small-bowel follow-through showed normal transit. Bowels are moving. Clinically improving. * Will remove NG tube and start advancing diet as tolerated Plan I have discussed the patient's case and plan of care with Dr. Ramos. Subjective Subjective Date/Time Seen: 08/15/24 15:30 Patient reports: feels better, tolerating liquids well, flatus and bowel movement Interval history: Patient seen after his small-bowel follow-through this morning. He is doing much better and moving his bowels. Denies any abdominal pain, nausea, or vomiting. Tolerating full liquids. Exam Const: General: comfortable and no acute distress Orientation/consciousness: patient oriented x3 GI: Inspection: non-distended GI Palp: Yes Soft to palpation, No Tenderness to palpation present (GI), No Guarding due to palpation present (GI) and No Rebound tenderness present Auscultation: normal bowel sounds Objective Data Vital Signs Vital Signs: Vital Signs - 24 hr 08/14/24 20:14 08/14/24 21:01 08/15/24 05:37 Temperature 100.1 F H 98.6 F Pulse Rate 97 90 Respiratory Rate 18 16 Blood Pressure 122/64 128/71 Pulse Oximetry 94 95 Oxygen Delivery Room Air Intake/Output Intake/Output: Intake & Output 08/12/24 08/13/24 08/14/24 08/15/24 23:59 23:59 23:59 23:59 Intake Total 1999 1999 1480 Output Total 900 400 Balance 1999 1100 1080 Meds/Results Medications: Active Medications Generic Name Dose Route Start Last Admin Trade Name Freq PRN Reason Stop Dose Admin Acetaminophen 650 mg 08/14/24 00:27 Acetaminophen 650 Mg Suppository RECTAL Q6H PRN Mild Pain (1-3) or Fever Dextrose 12.5 gm 08/14/24 00:27 Dextrose 50% 25 Gm/50 Ml Syringe IV PUSH PRN PRN Hypoglycemia Protocol Glucagon 1 mg 08/14/24 00:27 Glucagon For Inj 1 Mg Vial IM PRN PRN Hypoglycemia Protocol Glucose 15 gm 08/14/24 00:27 Glucose Oral Gel 15 Gm Of Glucse In 37.5 Gm Tube PO PRN PRN Hypoglycemia Protocol Hydromorphone HCl 0.5 mg 08/14/24 09:25 08/15/24 04:02 Hydromorphone Hcl Inj (*Crx) 1 Mg/Ml Syr IV PUSH 0.5 mg Q4H PRN Administration Pain Rated 7-10 Sodium Chloride 1,000 mls @ 70 mls/hr 08/13/24 23:50 08/15/24 12:19 Normal Saline Iv IV CONT 70 mls/hr .[id number] JANEY Infusion Dextrose 1,000 mls @ 100 mls/hr 08/14/24 00:27 Dextrose 5% 1,000 Ml IVPB PRN PRN Hypoglycemia Protocol Morphine Sulfate 2 mg 08/14/24 09:25 08/14/24 15:35 Morphine Sulfate (*Crx) 2 Mg/Ml Inj IV PUSH 2 mg Q2H PRN Administration Pain Rated 4-6 Ondansetron HCl 4 mg 08/14/24 00:27 Ondansetron Inj 4 Mg/2 Ml Vial IV PUSH Q4H PRN Nausea Phenol 1 spray 08/14/24 09:08 08/14/24 12:46 Phenol/Sod Pheno [place] (*Bkc) MUCOUS MEM 1 spray PRN PRN Administration Sore Throat Radiology Results: ITS Impressions Abdomen/Pelvis CT 08/13/24 23:00 IMPRESSION: Mild gallbladder hydrops without inflammatory change, presumably secondary to fasting, particularly if biliary labs are normal. Mid small bowel obstruction, possibly secondary to adhesion or internal hernia in the left mid abdomen. Abdomen X-Ray 08/14/24 16:08 IMPRESSION: 1. Nasogastric tube tip in the stomach. 2. Dilated small bowel, consistent with adynamic ileus versus small bowel obstruction. Small Bowel X-Ray 08/15/24 11:27 IMPRESSION: 1. Normal small bowel follow-through. Labs Labs: Laboratory Results - last 24 hr 08/15/24 05:41 WBC 13.2 H RBC 4.66 Hgb 14.1 Hct 40.9 L MCV 87.8 MCH 30.3 MCHC 34.5 RDW 13.1 Plt Count 352 MPV 10.2 Sodium 139 Potassium 3.3 L Chloride 102 Carbon Dioxide 27 Anion Gap 10 BUN 9 D Creatinine 1.01 Estim Creat Clear Calc 113 Estimated GFR > 60 Glucose 74 Calcium 8.5
[2024-08-15] MEDS: SODIUM CHLORIDE 0.9% IV 1,000 ML 70 ML IV CONT (18:16)
[2024-08-15 19:49] VITALS: BP 112/60; PULSE 75; RESP 20; TEMP 36.7; O2SAT 96
[2024-08-16 04:27] VITALS: BP 118/68; PULSE 88; RESP 20; TEMP 36.7; O2SAT 99
[2024-08-16 06:40] LABS: Hematocrit 41.2 % (42.0-52.0); Hemoglobin 13.5 g/dL (14.0-18.0); Mean Corpuscular HGB Conc 32.8 g/dl (32-36); Mean Corpuscular Hemoglobin 28.8 pg (26-34); Mean Corpuscular Volume 87.8 fl (80-100); Mean Platelet Volume 10.3 fl (7.4-10.4); Platelet Count Result 340 k/mm3 (150-375); Red Blood Count 4.69 M/mm3 (4.6-6.20); White Blood Count 11.4 K/mm3 (4.5-10.0)
[2024-08-16 06:43] LABS: Anion Gap 10 mmol/L (4-12); Blood Urea Nitrogen 10 mg/dL (9-20); Calcium 8.8 mg/dL (8.4-10.2); Carbon Dioxide 22 mmol/L (22-30); Chloride 108 mmol/L (98-107); Estimated CRCL calculation 120 ml/min; Estimated Glomerular Filt Rate > 60; Glucose 89 mg/dL (65-110); Potassium 3.7 mmol/L (3.4-5.0); Sodium 140 mmol/L (137-145)
--- NOTE | 2024-08-16 08:24 | P.DS_ITS ---
DS: Admitting Diagnosis Discharge Date 08/16/2024 Admitting Diagnosis small-bowel obstruction DS: Discharge Diagnosis Discharge Diagnosis (1) Gastroenteritis: Code(s): K52.9 - Noninfective gastroenteritis and colitis, unspecified Status: Acute (2) Small bowel obstruction: Code(s): K56.609 - Unspecified intestinal obstruction, unspecified as to partial versus complete obstruction Status: Acute DS: Summary Hospital Course Reason for hospitalization: small-bowel obstruction Hospital Course: this is a 38-year-old man who presented to the emergency department with abdominal pain, nausea, vomiting. His family had similar symptoms that only lasted about 24 hours, but his persisted for about 5 days. In the emergency department a CT showed evidence of a small-bowel obstruction. NG tube was placed and he was admitted for further treatment. The patient had a lot of discomfort from the NG tube but his nausea resolved. He began passing flatus and small bowel follow-through was then ordered. There was no evidence of a bowel obstruction on small-bowel follow-through. NG was removed and he was started on a full liquid diet. His diet was then advanced as tolerated. He was tolerating solid diet and bowels were continuing to move. He denied any more nausea or vomiting. He denies any bloating. He remained hemodynamically stable. He was discharged on 08/16/2024. Status at Discharge Functional status at discharge: independent ambulation Overall status at discharge: patient is back to baseline Time Spent with Patient Time attestation: Total time spent providing and/or coordinating discharge services: Time spent: Less than 30 minutes Exam Const: General: comfortable and no acute distress Resp: Effort & Inspection: normal respiratory effort Auscultation: clear to auscultation bilaterally Cardio: Rate: regular rate Rhythm: regular rhythm Heart sounds: S1 normal heart sound present and S2 normal heart sound present GI: Inspection: non-distended and obesity GI Palp: Yes Soft to palpation, No Tenderness to palpation present (GI), No Guarding due to palpation present (GI) and No Rebound tenderness present Percussion: Yes normal to percussion Auscultation: normal bowel sounds DS: Data Data Completed and Pending Labs on day of discharge: Labs from last 24 hours 08/16/24 06:00 WBC 11.4 H RBC 4.69 Hgb 13.5 L Hct 41.2 L MCV 87.8 MCH 28.8 MCHC 32.8 RDW 13.0 Plt Count 340 MPV 10.3 Sodium 140 Potassium 3.7 Chloride 108 H Carbon Dioxide 22 Anion Gap 10 BUN 10 Creatinine 0.95 Estim Creat Clear Calc 120 Estimated GFR > 60 Glucose 89 Calcium 8.8 Magnesium 2.0 Imaging Radiologist's impression: ITS Impressions Abdomen/Pelvis CT 08/13/24 23:00 IMPRESSION: Mild gallbladder hydrops without inflammatory change, presumably secondary to fasting, particularly if biliary labs are normal. Mid small bowel obstruction, possibly secondary to adhesion or internal hernia in the left mid abdomen. Abdomen X-Ray 08/14/24 05:32 Impression: NG tube in satisfactory position. Small bowel obstruction. Abdomen X-Ray 08/14/24 16:08 IMPRESSION: 1. Nasogastric tube tip in the stomach. 2. Dilated small bowel, consistent with adynamic ileus versus small bowel obstruction. Small Bowel X-Ray 08/15/24 11:27 IMPRESSION: 1. Normal small bowel follow-through. Discharge Plan Discharge Attending physician on discharge: Tom Ramos Discharging Clinician: Tom Ramos Patient Disposition: Home, Self-Care Activity: unlimited Diet: regular Patient Instructions: Antibiotic Form, Pain Management (DC), Gastroenteritis (DC) Patient Language: Albanian Stand Alone Forms: General Discharge Information Follow-up/Referrals: Chio,Alanna Ramos MD [Primary Care Provider] - Follow Up with Primary Dr Discharge Medications: Continued No Home Medications Date of admission: 08/14/24 08:54 Primary Care Provider: Darryn,Alanna Ramos Admitting Provider: Tom Ramos Attending physician on admission: Tom Ramos Condition: Improved
== END 2024-08-16 09:45 | disposition home or self-care (01) | DRG 390 ==
LOC: ANHED 08-14 00:36 → ANH2MED 08-14 00:55
PROVIDERS: Emergency Medicine; Nurse Practitioner Family; Admitting Provider Surgery; Emergency Provider Physician Assistant; PCP Family Medicine; Visit Provider Surgery
DX: K56.609 Unspecified intestinal obstruction, unspecified as to partial versus complete obstruction (principal); K52.9 Noninfective gastroenteritis and colitis, unspecified; E66.9 Obesity, unspecified; Z68.36 Body mass index [BMI] 36.0-36.9, adult
CPT/HCPCS: 36415; 74177; 74250; 80048; 80053; 80307; 81001; 83605; 83690; 83735; 85025; 85027; 87637; 96361; 96374; 96375; 96376; 99285; A9270; G0379; J1171; J2270; J2405; J3480; J7030; J7040; Q9967

== ENCOUNTER 2024-11-03 17:06 | Emergency (ER) | payer BC, MEDICAID, SELFPAY ==
--- NOTE | ~2024-11-03 | CT_ITS ---
CT brain wo con Ordering provider: Jo-Ann Ryan PA-C History: 38 years Male with . left arm paresthesias . Comparison: None. Technique: CT of the head without contrast. Radiation reduction technique utilized. The dose-length product was 605.33 mGy-cm. FINDINGS: BRAIN PARENCHYMA AND CSF SPACES: No midline shift, mass effect or hemorrhage. The brain parenchyma a nd CSF spaces are otherwise normal. VISUALIZED PARANASAL SINUSES: Right maxillary sinus disease. Otherwise, Well aerated. MASTOIDS: Well aerated. BONES: The bones appear intact. SOFT TISSUES: Visualized nasopharynx is normal. Superficial soft tissues are normal. IMPRESSION: No acute intracranial findings. Reviewed, dictated and finalized at location A.
--- NOTE | ~2024-11-03 | CT_ITS ---
CT cervical spine wo con Ordering provider: Jo-Ann Ryan PA-C History: . left arm paresthesias . Comparison: January 25, 2021 Technique: CT of the cervical spine was performed without contrast. Sagittal and coronal reformatted images were also obtained and reviewed. Automated exposure control and iterative reconstruction johanna hnique were employed. The dose-length product was 672.78 mGy-cm. FINDINGS: VERTEBRAE: No subluxation or acute fracture. The occipital condyles are intact. DISC SPACES: Normal. PARASPINOUS SOFT TISSUES: Normal. IMPRESSION: No acute osseous abnormality cervical spine. Reviewed, dictated and finalized at location A.
[2024-11-03 17:08] VITALS: BP 134/78; PULSE 84; RESP 16; TEMP 36.8; O2SAT 97
--- OUTSIDE RECORDS SUMMARY | 2024-11-03 17:08 | XMS_ITS | Data Portability ---
Author Organization [facility], Main Office Address [address] [place] [address] Care Team Providers Care Retort Condenser Attendant Name Role Phone CLARA AMARAL Hide Buffer RADHIKA BARROSO Primary Care Provider RADHIKA BARROSO Referring Provider Assessment Encounter Date [...] DO Not Attach Compendium, Do Not Delete/merge, 66602 3 14:53:45 Surgeries None recorded. Imaging None recorded. Medication Orders escitalopra m 10 mg tablet 2023 024 [facility] #[id number], [address], [place], [place], [id number], 4 08:50:40 escitalopra m 10 mg tablet 2022 023 [facility] #[id number], [address], [place], [place], [id number], 3 08:10:46 escitalopra m 10 mg tablet 2022 023 [facility] #50313, [address], [place], [place], [id number], 3 15:23:46 Kenalog 10 mg/mL suspension for injection [address] [facility]83264, [address], [id number], 3 23:38:55 ropivacaine (PF) 5 mg/mL (0.5 %) injection solution [address] [facility] #05758, [address], [place], [place], [id number], 3 23:38:55 Patient TargetsNo targets recorded. Patient InstructionsNo instructions recorded. Reason for Referral None Reported. Results Created Date Observation Date Name Description Value Unit Range Abnormal Flag Note LastModifiedBy Organization Detail LastModifiedTime 12/29/1912/28/2022 MRI, neva teddy, w/o contr ast No observ ation record ed. [email or web address] [facility] [address] [place], [address], 12/29/2022 12:46:39 08/14/19 25 08/13/2024 imagi ng/di agnos tic resul t No observ ation record ed. [address] [facility], [place], [address], 08/14/2024 00:30:59 08/14/19 25 08/14/2024 imagi ng/di agnos tic resul t No observ ation record ed. [address] [facility], [place], [address], 08/14/2024 06:37:47 08/14/19 25 08/14/2024 imagi ng/di agnos tic resul t No observ ation record ed. [address] [facility], [place], [address], 08/14/2024 17:45:23 08/15/19 25 08/15/2024 imagi ng/di agnos tic resul t No observ ation record ed. [address] [facility], [place], [address], 08/15/2024 12:46:50 Result Notes None recorded. Problems Name Problem SNOMED Code Status Onset Date Resolution Date Notes Provider Name and Address Organization Details Recorded Time Pain of left shoulder joint 7646607257175 9109 Active 2022 Radhika Barroso MD [address] [facility], [address], [place], [address], [employer] 3 11:16:27 Acute situational disturbance 769776781 Active 2022 ISABEL Mon [address] [facility], [address], [place], [address], [employer] 3 12:08:23 Osteoarthri tis of left acromioclav icular joint 8198013485042 108 Active 2022 Lou Malloy neel, [place] [employer] 14:51:52 Problem Notes None recorded. Procedures Surgical History Date Name Laterality Status Provider Name and Address Organization Details Recorded Time 3 Ortho - Cortisone Injection completed Jana Galicia, CUT OFF OPERATOR SCORER [address] [facility], [address], [place], [address], [employer] 01/20/2023 14:48:03 3 Ortho - Cortisone Injection completed Jana Galicia, CUT OFF OPERATOR SCORER [address] [facility], [place], [address], [employer] 11/02/2022 11:10:28 Imaging Results Imaging Date Name Status LastModified by Organiz ation Details LastModified Time 12/28/2022 MRI, shoulder, w/o contrast completed [address] [facility], [place], [address], 12/29/2022 12:46:39 08/13/2024 imaging/diagn ostic result active [address] [place] [address], [address], 08/14/2024 00:30:59 08/14/2024 imaging/diagn ostic result active [address], [address], 08/14/2024 06:37:47 08/14/2024 imaging/diagn ostic result active [address] [place] [address], [address], 08/14/2024 17:45:23 08/15/2024 imaging/diagn ostic result active [address] [place] [address], [address], 08/15/2024 12:46:50 Procedure Notes None recorded. Medical Equipment None Reported. Allergies No known drug allergies Medications Name Sig Start Date Stop Date Status Note LastModified by Organization Details LastModified Time benzap rine 10 mg tablet TAKE 1 TABLET [...] suspension for injection IN OFFICE 2022 active [facility]: 0003- 0494- 20 Not Available Not Available [...] %) injection solution IN OFFICE 2022 active [facility] 49096 -064- 01 Not Available Not Available Not [...] Updated DateTime 3 177.8 cm 36.3 kg/m2 351682. 87 g 98.2 [degF] 75 /min 99 % 99 % 124 mm[Hg] 72 mm[Hg] Maribel Taylor RN [facility] [employer] [facility] 3 11:44:30 Date Recorded Body height Body mass index (BMI) Body weight Pain severity - 0-10 verbal numeric rating [Score] - Reported Provider Name and Address Organization Details Last Updated DateTime 01/18/2023 177.8 cm 35.2 kg/m2 120772.13 g 2 ANASTASIA Díaz [facility] [employer] [facility] 01/18/2023 13:54:56 Date Recorded Body height Body mass index (BMI) Body weight Body temperature Heart rate Oxygen saturation Oxygen saturation in Arterial blood by Pulse oximetry Systolic blood pressure Diastolic blood pressure Provider Name and Address Organization Details Last Updated DateTime 3 177.8 cm 35.9 kg/m2 007522. 09 g 97.9 [degF] 104 /min 96 % 96 % 138 mm[Hg] 82 mm[Hg] Deven August RN [facility] [employer] [facility] 3 15:11:41 Date Recorded Body height Body mass index (BMI) Body weight Body temperature Heart rate Oxygen saturation Oxygen saturation in Arterial blood by Pulse oximetry Systolic blood pressure Diastolic blood pressure Provider Name and Address Organization Details Last Updated DateTime 3 177.8 cm 36 kg/m2 295264. 68 g 98.1 [degF] 67 /min 97 % 97 % 120 mm[Hg] 70 mm[Hg] Deven August RN [facility] [employer] [facility] 3 08:05:41 Date Recorded Body height Body mass index (BMI) Body weight Body temperature Heart rate Oxygen saturation Oxygen saturation in Arterial blood by Pulse oximetry Systolic blood pressure Diastolic blood pressure Provider Name and Address Organization Details Last Updated DateTime 4 177.8 cm 35 kg/m2 957407. 54 g 96.9 [degF] 88 /min 98 % 98 % 132 mm[Hg] 84 mm[Hg] Treasure Cummings RN [facility] [place] [employer] 4 08:35:23 Social History Question Answer Notes LastModified by [employer] Details LastModified Time Tobacco Smoking Status Never Smoker Not Available [facility] 08/24/2022 20:58:48 Do You Have An Advance Directive? No [id number] Information not available 08/24/2022 What Is Your Level Of Alcohol Consumption? None [id number].[id number] Information not available 08/24/2022 What Is Your Level Of Caffeine Consumption? Moderate MIGRATION.[id number] Information not available 08/24/2022 In The 14 Days Before Symptom Onset, Have You Had Close Contact With A Laboratory-confirm ed COVID-19 While That Case Was Ill? No [id number].[id number] Information not available 08/24/2022 In The 14 Days Before Symptom Onset, Have You Had Close Contact With A Person Who Is Under Investigation For COVID-19 While That Person Was Ill? No [id number].[id number] Information not available 08/24/2022 What Type Of Diet Are You Following? REGULAR MIGRATION.077239 4973 Information not available 08/24/2022 What Was The Date Of Your Most Recent Tobacco Screening? 10/13/2022 [email or web address] Information not available 10/13/2022 Do You Use Any Illicit Or Recreational Drugs? No [id number].[id number] Information not available 08/24/2022 Do You Use Sunscreen Routinely? No MIGRATION.113203 5510 Information not available 08/24/2022 Has Tobacco Cessation Counseling Been Provided? No MIGRATION.500616 9887 Information not available 08/24/2022 Have You Recently Traveled Abroad? No MIGRATION.707079 8403 Information not available 08/24/2022 Do You Have Any Dietary Restrictions? No MIGRATION.568190 5122 Information not available 08/24/2022 Do You Or Have You Ever Used Any Other Forms Of Tobacco Or Nicotine? No MIGRATION.552590 2448 Information not available 08/24/2022 Sex: Unknown Functional Status Question Answer Note LastModified by Organizat ion Details LastModified Time What is your exercise level? Heavy [id number] Information not available 08/24/2022 Mental Status None recorded. Family History Relationship Description Onset Age of this Age Resolved Age Notes LastModified by Organization Details LastModified Time Mother Diabetes mellitus [email or web address] Not available 2022 10:11:12 Medical History No medical history recorded. Past Encounters Encounter ID Performer Location Encounter Start Date Encounter Closed Date Diagnosis/Indication Diagnosis SNOMED-CT Code Diagnosis ICD10 Code Diagnosis Note [id number] Radhika Barroso MD [facility] Primary [place] [address] [facility] [address] [place] [address] 12/07/2020 00:00:00 12/22/2020 15:48:04 [id number] MD MARC [facility] [address] [address] 12/23/2020 00:00:00 12/23/2020 11:38:35 [id number] Sergo Malhotra MD [facility] [address] [address] 01/06/2021 00:00:00 01/06/2021 12:24:00 [id number] Radhika Barroso MD Edd[facility] Primary Care [facility] [address] [place] [address] [address] [place] [address] 02/17/2021 00:00:00 02/22/2021 19:13:13 [id number] Radhika Barroso MD [facility] Primary [place] [address] [place] [address] [address] [place] [address] 04/08/2021 00:00:00 04/14/2021 11:32:53 [id number] Radhika Barroso MD Edd[facility] Primary [place] [address] [place] [address] [address] [place] [address] 05/12/2021 00:00:00 05/17/2021 10:06:50 [id number] ISABEL Mon Edd[facility] Primary [place] [address] [place] [address] [address] [place] [address] 02/22/2022 00:00:00 02/22/2022 12:22:[id number] [facility] Primary Care [place] [address] [facility] [address] [place] [address] 09/08/2022 10:45:01 09/08/2022 11:26:45 Pain of left shoulder joint 3978225359 4127637 M25.512 work related shoulder painno overhead work and 10 pound lifting restrictio northo referral givenrestr iction from completed- restrictio ns start today and will be lifted when released by orthopredn isone taper with food, avoid other nsaidsok to continue biofreeze [id number] Jana Galicia NP [facility] [place] [address] [place] [address] 09/16/2022 10:00:53 09/16/2022 10:45:38 Pain of left shoulder joint 3482903269 4438281 M25.512 [id number] [facility] Primary Care [place] [address] [facility] [address] [place] [address] 10/13/2022 16:16:36 10/13/2022 16:55:13 Adult health examination 018983949 Z00.00 Z13.220 Z13.1 Recommend yearly flu vaccine and covid boosterChe ck fasting labs Pain of le ft shoulder joint 5720385855 1791776 M25.512 work related shoulder painno overhead work and 10 pound lifting restrictio ncontinue to follow up with orthorestr iction from completed- restrictio ns start today and will be lifted when released by orthopredn isone taper with food, avoid other nsaidsok to continue biofreeze [id number] Jana Galicia NP [facility] [place] [address] [place] [address] 10/28/2022 09:23:55 10/28/2022 09:45:47 Pain of left shoulder joint 1866105684 7581019 M25.512 [id number] [facility] Primary Care [place] [address] [place] [address] 11/22/2022 08:08:11 11/22/2022 10:27:32 Pain of left shoulder joint 8978432286 6730890 M25.512 work related shoulder painno overhead work and 10 pound lifting restrictio ncontinue to follow up with ortho (next scheduled appt on 12/09/22)re striction from completed- restrictio ns start today and will be lifted when released by orthof/u in 4 weeks or sooner if needed [id number] Tanner Mckenzie MD [facility] [place] [address] [place] [address] 12/09/2022 09:08:35 12/09/2022 09:42:22 Pain of left shoulder joint 8319541238 9489880 M25.512 [id number] Radhika Barroso MD [place] [address] [address] [facility] [address] [place] [address] 12/30/2022 11:36:16 12/30/2022 15:16:28 Acute situational disturbance 155701783 F43.20 Currently going through possible separation /divorce.Alexandr dumont has not had a hx of anxiety/de pression. He is planning to start counseling through work along with his , not interested in any other individual counseling at this time.Plan to complete FMLA for personal leave from 12/20/22-.Advi sed to follow-up if we need to address symptoms further. [id number] Jana Galicia NP [facility] [place] [address] [place] [address] 01/18/2023 13:53:17 01/18/2023 14:29:52 Osteoarthritis of left acromioclavicular joint 5704877742 996754 M19.[id number] [facility] Primary Care [place] [address] [employer] [facility] [address] [place] [address] 01/31/2023 15:04:54 01/31/2023 15:29:10 Acute situational disturbance 469927317 F43.20 On leave from 01/26/23 return to work with shoulder restrictio ns on 02/26/23Begi n escitalopr am 10 mg daily with foodReview ed potential med s/e, d/c and be seen if any si/hif/u in 4 weeks or sooner if needed [id number] Radhika Barroso MD [facility] Primary Care [facility] [address] [facility] [address] [place] [address] 02/21/2023 08:01:03 02/21/2023 08:14:14 Acute situational disturbance 670558446 F43.20 ImprovingO n leave from 01/26/23 return to work without restrictio ns on 02/26/23Cont inue escitalopr am 10 mg daily with foodReview ed potential med s/e, d/c and be seen if any si/hi at last apptf/u in 6 weeks or sooner if needed [id number] Radhika Barroso MD [facility] Primary Care [facility] [address] [facility] [address] [place] [address] 08/15/2023 08:27:52 08/15/2023 08:46:27 Acute situational disturbance 743672681 F43.20 -pt has been using escitalopr am 10mg with positive results-ra n out of the medication a couple weeks ago and is needing a refill-rec ently noted an emotional outburst at work and is not needing to take time off-[place] paperwork filled [place]- wanting to be out [...] Member ID Guarantor Name 12/30/2022 2 [place] Reinaldo Michelle [id number] Reinaldo Michelle 01/18/2023 [facility] 01/31/2023 2 [place] [facility] [place] [place] Reinaldo Michelle [id number] Reinaldo Michelle 01/31/2023 1 [place] [id number] Reinaldo Michelle [id number] 01 Reinaldo Michelle 02/21/2023 2 [place] [facility] [place] [place] Reinaldo Michelle [id number] Reinaldo Michelle 02/21/2023 1 [place] [id number] Reinaldo Michelle [id number] 01 Reinaldo Michelle 08/15/2023 2 [place] [facility] [place] Reinaldo Michelle [id number] Reinaldo Michelle 08/15/2023 1 [place] [id number] Reinaldo Michelle [id number] 01 Reinaldo Michelle Notes Date Note Type [...] the first 5 sessions. ISABEL Mon [address], [place], [address], [employer] 12/30/2022 12:10:32 01/31/2023 text/html Estranged from , but trying to work things out. She has taken a trip to see a friend in [place] and now she wants to leave him [...] was 01/25/23. Radhika Barroso MD [address], [address], [place], [address], [facility] 02/01/2023 09:13:20 02/21/2023 text/html Estranged from , but trying to work things out. She has taken a trip to see a friend in [place] and now she wants to leave him [...] ends on 02/26/23. Radhika Barroso MD [address], [place], [address], [facility] [employer] 02/21/2023 08:12:42 08/15/2023 text/html PT is here to discuss [facility] paperwork BHUPINDER Martínez [address], [place], [address], [facility] [employer] 08/15/2023 08:51:09
--- NOTE | 2024-11-03 17:28 | ED.EXTPRO ---
HPI - Extremity Problem General Chief complaint: Extremity Problem,Nontraumatic Stated complaint: Left hand /forearm numbness Time Seen by Provider: 11/03/24 17:22 Source: patient Mode of arrival: ambulatory Limitations: no limitations History of Present Illness HPI Narrative: This is a 38 year old male that presents to the ER for paresthesias of the left forearm and hand. Ongoing intermittently over the last couple of days. No recent injuries or trauma. No other focal numbness or weakness. Related Data Home Medications ?Medication ?Instructions ?Recorded ?Confirmed ?Last Taken ?Type No Home Medications 08/14/24 08/14/24 Unknown History Allergies Allergy/AdvReac Type Severity Reaction Status Date / Time No Known Allergies Allergy Verified 11/03/24 17:06 Review of Systems Review of Systems: CONSTITUTIONAL: Denies fever, SKIN: Denies rash MUSCULOSKELETAL: Reports joint pain, and myalgia. NEUROLOGIC: Denies numbness, or weakness. All systems reviewed & are unremarkable except as noted in HPI and below PMFSH Past Medical History Medical History Obesity Surgical History Surgical History History of incision and drainage 2020 - I&D for mandibular abscess Hx of vasectomy Family History Family History Mother Diabetes mellitus Social History Social History Smoking status: Current every day smoker Tobacco type: cigarettes Alcohol intake: never Substance use: never Substance use type: does not use Do You Feel Safe in your Home?: Yes Lack of Transportation: No Lack of Food: Never True Current Housing: I Have Housing Concerned About Future Housing: No Difficulty Paying Gas/Electric Bills: No Difficulty Paying for Meds: No Currently Unemployed: No Education: High School Diploma/GED Difficulty w/ Childcare or Family Care: No Living arrangements: with family Additional living arrangements comments: Lives in [place] with his and 4 children. Occupation/Education: occupation Gender identity (if verbalized by the patient): Male Spiritual care concerns: No Exam Narrative: GENERAL: Well-appearing, well-nourished, and in no acute distress. HEAD: Normocephalic, atraumatic. EYES: PERRLA and EOMI. ENT: Nares clear, no rhinorrhea or epistaxis. Mucous membranes moist. Oropharynx without tonsillar hypertrophy exudate or other lesions. CHEST: Clear to auscultation. No respiratory distress. No wheezes rales or rhonchi HEART: Regular rate and rhythm. No murmur heard. Normal peripheral pulses. EXTREMITIES: Normal range of motion. No edema. Strength equal in bilateral upper extremities (5/5). Normal radial pulse SKIN: Warm, dry, no rash. NEURO: No focal deficits. Alert and oriented x3. PSYCH: Normal mood and affect Course Course Emergency Course: patient updated on his workup and agrees with plan of care Vital Signs Vital signs: Vital Signs Temperature 98.3 F 11/03/24 17:08 Pulse Rate 84 11/03/24 17:08 Respiratory Rate 16 11/03/24 17:08 Blood Pressure 134/78 11/03/24 17:08 Pulse Oximetry 97 11/03/24 17:08 Oxygen Delivery Room Air 11/03/24 17:08 Temperature 98.3 F 11/03/24 17:08 Pulse Rate 84 11/03/24 17:08 Respiratory Rate 16 11/03/24 17:08 Blood Pressure 134/78 11/03/24 17:08 Pulse Oximetry 97 11/03/24 17:08 Oxygen Delivery Room Air 11/03/24 17:08 MDM - Extremity (Nontraumatic) MDM Narrative Medical decision making narrative: Patient presents the emergency department for intermittent paresthesias of the left forearm and hand. Ongoing over the last several days. No recent injuries or trauma. Patient does not have any focal deficits on exam. CT brain and cervical spine without acute findings. Patient updated on his workup and agrees with plan of care. He is to follow up with primary care provider for further evaluation. He was given warnings to return to the ER Differential Diagnosis Differential diagnosis: Likely other (Peripheral neuropathy, cervical radiculopathy) Imaging Data Radiologist's impression: ITS Impressions Head CT 11/03/24 18:08 IMPRESSION: No acute intracranial findings. Cervical Spine CT 11/03/24 19:33 IMPRESSION: No acute osseous abnormality cervical spine. Critical Care Time Critical Care Time Critical Care Time: No Discharge Plan Discharge Clinical Impression: Arm paresthesia, left Patient Disposition: Home Condition: Stable Instructions: Paresthesia (ED) Additional Instructions: Return to the ER if you experience fever, redness and swelling of your arm, weakness, numbness, or any other symptoms that are concerning to you Follow up with your primary care doctor Patient Language: Citizen Of [place] Prescriptions: No Action No Home Medications Follow-up/Referrals: Chio,Alanna Ramos MD [Primary Care Provider] -
== END 2024-11-03 20:23 | disposition home or self-care (01) ==
PROVIDERS: Emergency Provider Physician Assistant; PCP Family Medicine
DX: R20.2 Paresthesia of skin (principal); E66.9 Obesity, unspecified; Z68.36 Body mass index [BMI] 36.0-36.9, adult; F17.210 Nicotine dependence, cigarettes, uncomplicated
CPT/HCPCS: 70450; 72125; 99284

== ENCOUNTER 2024-12-05 21:17 | Emergency (ER) | payer BC, MEDICAID, SELFPAY ==
--- NOTE | ~2024-12-05 | CT_ITS ---
CT abdomen pelvis w con Ordering provider: Rashi Todd MD History: 39 years Male with . nonlocalized abdominal pain . Comparison: None. Technique: CT abdomen and pelvis with IV and without oral contrast. Automated exposure control and it erative reconstruction technique were employed. The dose-length product was 1434.25 mGy-cm. 100 mL Om nipaque 350 was given IV. Findings: VISUALIZED LOWER CHEST: Dependent atelectatic changes. UPPER ABDOMINAL ORGANS: Liver: Normal. Gallbladder: Highly suggestive gallbladder stones near to the neck of the gallbladder. Spleen: Normal. Stomach/duodenum: Normal. Pancreas: Normal. Adrenals: Normal. Kidneys: Normal. PELVIC ORGANS: The bladder is normal. BOWEL AND MESENTERY: Colon: No evidence of diverticulitis. Fecal material is seen in the right side of the colon.. Normal appendix. Small Bowel: Normal. No obstruction. Peritoneum/mesentery: No free air or free fluid. No mesenteric lymphadenopathy. RETROPERITONEUM: Normal aorta. No retroperitoneal lymphadenopathy. MUSCULOSKELETAL: Superficial soft tissues: Small fat-containing umbilical hernia. Small inguinal lymph nodes. Otherwis e, The superficial soft tissues are normal. Bones: Normal spine. IMPRESSION: 1. No evidence of appendicitis, diverticulitis or intestinal obstruction. 2. Highly suggestive cholelithiasis. 3. Constipation. Reviewed, dictated and finalized at location A.
--- NOTE | ~2024-12-05 | XR_ITS ---
XR chest 2V Ordering provider: Todd Jessica MD History: 39 years Male with . CP . Comparison: January 28, 2021 FINDINGS: MEDIASTINUM: The cardiac silhouette is not enlarged. LUNGS: No infiltrates, effusions or pneumothorax. OTHER: No free air under the diaphragm. IMPRESSION: No acute cardiopulmonary pathology. Reviewed, dictated and finalized at location A.
--- NOTE | 2024-12-05 21:18 | ECG_ITS ---
Test Date: 2024-12-05 21:26:18 Measurements Intervals [place] Rate: 75 P: 47 ND: 176 QRS: 69 QRSD: 106 T: 38 QT: 347 QTc: 389 Interpretive Statements SINUS RHYTHM WITH SINUS ARRHYTHMIA MINIMAL Q WAVES- INFERIOR LEADS BASELINE ARTIFACT- I, II, III, AVR, AVL, AVF BORDERLINE ECG No previous ECG available for comparison Electronically Signed On 12-06-2024 06:33:25 CDT by Jaskaran Ayers D.O.
[2024-12-05 21:19] VITALS: BP 115/64; PULSE 82; RESP 14; TEMP 36.6; O2SAT 98
--- OUTSIDE RECORDS SUMMARY | 2024-12-05 21:19 | XMS_ITS | Data Portability ---
Author Organization [facility] [employer], Main Office Address [address] [place] [address] Care Team Providers Care Dry Talc Racker Name Role Phone CLARA AMARAL Can Feeder RADHIKA BARROSO Primary Care Provider [phone] RADHIKA BARROSO Referring Provider Assessment Encounter Date [...] DO Not Attach Compendium, Do Not Delete/merge, 58538 3 14:53:45 Surgeries None recorded. Imaging None recorded. Medication Orders escitalopra m 10 mg tablet 2023 024 [facility] #[id number], [address], [place], [place], [id number], 4 08:50:40 escitalopra m 10 mg tablet 2022 023 [facility] #[id number], [address], [place], [place], [id number], 3 08:10:46 escitalopra m 10 mg tablet 2022 023 [facility] #[id number], [address], [place], [place], [id number], 3 15:23:46 Kenalog 10 mg/mL suspension for injection [address] [facility][id number], [address], [id number], 3 23:38:55 ropivacaine (PF) 5 mg/mL (0.5 %) injection solution [address] [facility] #[id number], [address], [place], [place], [id number], 3 23:38:55 Patient TargetsNo targets recorded. Patient InstructionsNo instructions recorded. Reason for Referral None Reported. Results Created Date Observation Date Name Description Value Unit Range Abnormal Flag Note LastModifiedBy Organization Detail LastModifiedTime 12/29/1912/28/2022 MRI, shogiselle teddy, w/o contr ast No observ ation record ed. [email or web address] [facility] [address] [place], [address], 12/29/2022 12:46:39 08/14/19 25 08/13/2024 imagi ng/di agnos tic resul t No observ ation record ed. [address] [facility], [place], [address], 08/14/2024 00:30:59 08/14/19 25 08/14/2024 imagi ng/di agnos tic resul t No observ ation record ed. [address] [facility], [place], [address], 08/14/2024 06:37:47 08/14/19 25 08/14/2024 imagi ng/di agnos tic resul t No observ ation record ed. [address] [facility], [place], [address], 08/14/2024 17:45:23 08/15/19 25 08/15/2024 imagi ng/di agnos tic resul t No observ ation record ed. [address] [facility], [place], [address], 08/15/2024 12:46:50 11/04/19 25 11/03/2024 imagi ng/di agnos tic resul t No observ ation record ed. [address] [facility], [place], [address], 11/03/2024 19:16:24 11/04/19 25 11/03/2024 imagi ng/di agnos tic resul t No observ ation record ed. [address] [facility], [place], [address], 11/03/2024 20:45:15 Result Notes None recorded. Problems Name Problem SNOMED Code Status Onset Date Resolution Date Notes Provider Name and Address Organization Details Recorded Time Pain of left shoulder joint 2796161023736 9109 Active 2022 Radhika Barroso MD [address] [facility], [address] [address], [place], [address], [place] 3 11:16:27 Acute situational disturbance 498162828 Active [address] [facility], [address] [address], [place], [address], [place] 3 12:08:23 Osteoarthri tis of left acromioclav icular joint 3741530186100 108 Active 2022 Lou shaikh, [place] 3 14:51:52 Problem Notes None recorded. Procedures Surgical History Date Name Laterality Status Provider Name and Address Organization Details Recorded Time 3 Ortho - Cortisone Injection completed Jana Galicia NP [address] [facility], [address] [address], [place], [address], [place] 01/20/2023 14:48:03 3 Ortho - Cortisone Injection completed Jana Galicia NP [address] [facility], [address] [address], [place], [address], [place] 11/02/2022 11:10:28 Imaging Results None recorded. Procedure Notes None recorded. Medical Equipment None [...] suspension for injection IN OFFICE 2022 active [facility]: [id number] Not Available Not [...] %) injection solution IN OFFICE 2022 active FORMER[facility] NAMED [facility] [id number] -[phone] Not Available Not Available Not [...] Updated DateTime 4 177.8 cm 35 kg/m2 370994. 54 g 96.9 [degF] 88 /min 98 % 98 % 132 mm[Hg] 84 mm[Hg] Treasure Cummings RN [place] [facility] [place] [employer] 4 08:35:23 Date Recorded Body height Body mass index (BMI) Body weight Body temperature Heart rate Oxygen saturation Oxygen saturation in Arterial blood by Pulse oximetry Systolic blood pressure Diastolic blood pressure Provider Name and Address Organization Details Last Updated DateTime 3 177.8 cm 36.3 kg/m2 799729. 87 g 98.2 [degF] 75 /min 99 % 99 % 124 mm[Hg] 72 mm[Hg] Maribel Taylor RN [facility] [employer] [facility] 3 11:44:30 Date Recorded Body height Body mass index (BMI) Body weight Provider Name and Address Organization Details Last Updated DateTime 01/18/2023 177.8 cm 35.2 kg/m2 654209.13 g Devorah Arthur Rocio [facility] [employer] [facility] 01/18/2023 13:54:53 Date Recorded Body height Body mass index (BMI) Body weight Body temperature Heart rate Oxygen saturation Oxygen saturation in Arterial blood by Pulse oximetry Systolic blood pressure Diastolic blood pressure Provider Name and Address Organization Details Last Updated DateTime 3 177.8 cm 35.9 kg/m2 101769. 09 g 97.9 [degF] 104 /min 96 % 96 % 138 mm[Hg] 82 mm[Hg] Deven August RN [facility] [employer] [facility] 3 15:11:41 Date Recorded Body height Body mass index (BMI) Body weight Body temperature Heart rate Oxygen saturation Oxygen saturation in Arterial blood by Pulse oximetry Systolic blood pressure Diastolic blood pressure Provider Name and Address Organization Details Last Updated DateTime 3 177.8 cm 36 kg/m2 632166. 68 g 98.1 [degF] 67 /min 97 % 97 % 120 mm[Hg] 70 mm[Hg] Deven August RN [facility] [employer] [facility] 3 08:05:41 Social History Question Answer Notes LastModified by Organizat ion Details LastModified Time Tobacco Smoking Status Never Smoker Not Available [employer] 08/24/2022 20:58:48 Do You Have An Advance Directive? No [id number] Information not available 08/24/2022 What Is Your Level Of Caffeine Consumption? Moderate [id number] Information not available 08/24/2022 In The 14 Days Before Symptom Onset, Have You Had Close Contact With A Laboratory-confirm ed COVID-19 While That Case Was Ill? No [id number] Information not available 08/24/2022 In The 14 Days Before Symptom Onset, Have You Had Close Contact With A Person Who Is Under Investigation For COVID-19 While That Person Was Ill? No [id number] Information not available 08/24/2022 What Type Of Diet Are You Following? REGULAR [id number].[id number] Information not available 08/24/2022 What Was The Date Of Your Most Recent Tobacco Screening? 10/13/2022 [email or web address] Information not available 10/13/2022 Do You Use Sunscreen Routinely? No [id number] Information not available 08/24/2022 Has Tobacco Cessation Counseling Been Provided? No [id number].[id number] 1817 Information not available 08/24/2022 Have You Recently Traveled Abroad? No [id number].[id number] 3788 Information not available 08/24/2022 Do You Have Any Dietary Restrictions? No [id number].[id number] Information not available 08/24/2022 Sex: Unknown Functional Status Question Answer Note LastModified by [employer] ion Details LastModified Time Do you use any illicit or recreational drugs? No [id number].[id number] 26 Information not available 08/24/2022 Do you or have you ever used any other forms of tobacco or nicotine? No [id number].[id number] 26 Information not available 08/24/2022 What is your level of alcohol consumption? None [id number].[id number] 26 Information not available 08/24/2022 What is your exercise level? Heavy [id number].[id number] 26 Information not available 08/24/2022 Mental Status None recorded. Family History Relationship Description Onset Age of this Age Resolved Age Notes LastModified by Organization Details LastModified Time Mother Diabetes mellitus [email or web address] Not available 2022 10:11:12 Medical History No medical history recorded. Past Encounters Encounter ID Performer Location Encounter Start Date Encounter Closed Date Diagnosis/Indication Diagnosis SNOMED-CT Code Diagnosis ICD10 Code Diagnosis Note [id number] Radhika Barroso MD [facility] [address] [facility] [address] [place] [address] 12/07/2020 00:00:00 12/22/2020 15:48:04 [id number] Sergo Malhotra MD [facility] [address] [place] [address] 12/23/2020 00:00:00 12/23/2020 11:38:35 [id number] Sergo Malhotra MD [facility] [address] 01/06/2021 00:00:00 01/06/2021 12:24:00 [id number] Radhika Barroso MD [facility] Primary [place] [address] [place] [address] [address] [place] [address] 02/17/2021 00:00:00 02/22/2021 19:13:13 [id number] Radhika Barroso MD [facility] Primary [place] [address] [facility] [address] [place] [address] 04/08/2021 00:00:00 04/14/2021 11:32:53 [id number] Radhika Barroso MD [facility] Primary [place] [address] [facility] [address] [place] [address] 05/12/2021 00:00:00 05/17/2021 10:06:50 [id number] ISABEL Mon [facility] Primary [place] [address] [facility] [address] [place] [address] 02/22/2022 00:00:00 02/22/2022 12:22:03 [id number] Radhika Barroso MD [facility] Primary [facility] [place] [address] [facility] [address] [place] [address] 09/08/2022 10:45:01 09/08/2022 11:26:45 Pain of left shoulder joint 7162625009 1079302 M25.512 work related shoulder painno overhead work and 10 pound lifting restrictio northo referral givenrestr iction from completed- restrictio ns start today and will be lifted when released by orthopredn isone taper with food, avoid other nsaidsok to continue biofreeze [id number] Jana Galicia NP [facility] [place] [place] [address] [place] [address] 09/16/2022 10:00:53 09/16/2022 10:45:38 Pain of left shoulder joint 2962438919 5291843 M25.512 [id number] Radhika Barroso MD [facility] Primary [place] [address] [facility] [address] [place] [address] 10/13/2022 16:16:36 10/13/2022 16:55:13 Adult health examination 775614149 Z00.00 Z13.220 Z13.1 Recommend yearly flu vaccine and covid boosterChe ck fasting labs Pain of le ft shoulder joint 7554339461 9098568 M25.512 work related shoulder painno overhead work and 10 pound lifting restrictio ncontinue to follow up with orthorestr iction from completed- restrictio ns start today and will be lifted when released by orthopredn isone taper with food, avoid other nsaidsok to continue biofreeze [id number] Jana Galicia NP [facility] [place] [address] [place] [address] 10/28/2022 09:23:55 10/28/2022 09:45:47 Pain of left shoulder joint 4346119651 8717984 M25.512 [id number] Radhika Barroso MD [facility] Primary [place] [address] [facility] [address] [place] [address] 11/22/2022 08:08:11 11/22/2022 10:27:32 Pain of left shoulder joint 5467719768 7758240 M25.512 work related shoulder painno overhead work and 10 pound lifting restrictio ncontinue to follow up with ortho (next scheduled appt on 12/09/22)re striction from completed- restrictio ns start today and will be lifted when released by orthof/u in 4 weeks or sooner if needed [id number] Tanner Mckenzie MD [facility] [place] [address] [place] [address] 12/09/2022 09:08:35 12/09/2022 09:42:22 Pain of left shoulder joint 7782509157 5369271 M25.512 [id number] Radhika Barroso MD [facility] Primary Care [address] [place] [address] 12/30/2022 11:36:16 12/30/2022 15:16:28 Acute situational disturbance 759410006 F43.20 Currently going through possible separation /divorce.Alexandr dumont has not had a hx of anxiety/de pression. He is planning to start counseling through work along with his , not interested in any other individual counseling at this time.Plan to complete FMLA for personal leave from 12/20/22-.Advi sed to follow-up if we need to address symptoms further. [id number] Jana Galicia NP [facility] [place] [address] [place] [address] 01/18/2023 13:53:17 01/18/2023 14:29:52 Osteoarthritis of left acromioclavicular joint 2897991691 003745 M19.012 [id number] Radhika Barroso MD [facility] Primary Care [address] [place] [address] 01/31/2023 15:04:54 01/31/2023 15:29:10 Acute situational disturbance 794509461 F43.20 On leave from 01/26/23 return to work with shoulder restrictio ns on 02/26/23Begi n escitalopr am 10 mg daily with foodReview ed potential med s/e, d/c and be seen if any si/hif/u in 4 weeks or sooner if needed [id number] Radhika Barroso MD [facility] Primary Care [address] [place] [address] 02/21/2023 08:01:03 02/21/2023 08:14:14 Acute situational disturbance 923075598 F43.20 ImprovingO n leave from 01/26/23 return to work without restrictio ns on 02/26/23Cont inue escitalopr am 10 mg daily with foodReview ed potential med s/e, d/c and be seen if any si/hi at last apptf/u in 6 weeks or sooner if needed [id number] Radhika Barroso MD [facility] [place] [address] [facility] [address] [place] [address] 08/15/2023 08:27:52 08/15/2023 08:46:27 Acute situational disturbance 538596107 F43.20 -pt has been using escitalopr am [...] None Recorded Advance Directives Directive N: Payers Insurance Date Sequence Insurance Name Policy Number Policy Meredith Covered Member ID Meredith Member ID Guarantor Name 10/27/2022 1 [place] [id number] Reinaldo Michelle [id number] Reinaldo Michelle 08/15/2023 2 [place] Reinaldo Michelle [id number] Reinaldo Michelle 01/23/2023 2 [place] [id number] Reinaldo Michelle [id number] Reinaldo Michelle 01/31/2023 1 [place] BLUE [place]IELD (PPO) [id number] Reinaldo Michelle [id number] Reinaldo Michelle 08/15/2023 1 [place] [id number] Reinaldo Michelle [id number] Reinaldo Michelle 10/31/2022 PAKO Michelle Notes Date Note Type Note Provider Name and Address Organization Details Recorded Time 12/30/2022 text/html Pt. here to discuss FMLA (personal leave of absence due to life situation causing anxiety/panic attacks). He states he is considering going through a divorce so there has been a lot of stress. He states he missed work 12/20/22-01/10/23 and needs [facility] paperwork completed. He has not had a history of anxiety/depression or have been treated for it. His work is setting up marriage counseling because they pay for the first 5 sessions. ISABEL Mon [address], [place], [address], [facility] [employer] [facility] [employer] 12/30/2022 12:10:32 01/31/2023 text/html Estranged from , but trying to work things out. She has taken a trip to see a friend in [place] and now she wants to leave him [...] Barroso MD [address], [place], [address], [employer] [place] [employer] 02/01/2023 09:13:20 02/21/2023 text/html Estranged from , but trying to work things out. She has taken a trip to see a friend in [place] and now she wants to leave him [...] on 02/26/23. Radhika Barroso MD [address] [place] [address], [place], [address], [facility] [employer] [facility] [employer] [facility] 02/21/2023 08:12:42 08/15/2023 text/html PT is here to discuss [facility] paperwork BHUPINDER Martínez [address] [place] [address], [place], [address], [facility] [employer] [facility] [employer] [facility] 08/15/2023 08:51:09
[2024-12-05 21:36] VITALS: PULSE 78; O2SAT 99
--- NOTE | 2024-12-05 21:36 | ED_ITS ---
HPI - General Adult General Chief complaint: Chest Pain Stated complaint: chest pain and abdominal pain Time Seen by Provider: 12/05/24 21:19 History of Present Illness HPI narrative: Patient is a 39-year-old male who presents ER with abdominal pain and chest pain. Chest pain is burning that has been worsening since 5:00 a.m.. Abdominal pain is cramping in lower abdomen that has been worsening over the same amount time. Mild improvement with Tums but has continued to worsen. He is passing gas and he is having some belching. No vomiting. History of partial small- bowel obstruction past resolved with NG tube. No fevers or chills or sweats. No urinary symptoms. Related Data Allergies Allergy/AdvReac Type Severity Reaction Status Date / Time No Known Allergies Allergy Verified 11/03/24 17:06 Review of Systems 2 Review of Systems: All systems reviewed & are unremarkable except as noted in HPI and below Constitutional: Constitutional: Reports no additional constitutional complaints ENT: Reports system reviewed and no additional complaints, except as documented Cardiovascular: Cardiovascular: Reports no additional cardiovascular complaints Respiratory: Respiratory: Reports no additional respiratory complaints Gastrointestinal: Gastrointestinal: Reports no additional gastrointestinal complaints Genitourinary: Genitourinary: Reports no additional male genitourinary complaints Musculoskeletal: Musculoskeletal: Reports no additional musculoskeletal complaints [facility] Past Medical History Medical History Obesity Surgical History Surgical History History of incision and drainage 2020 - I&D for mandibular abscess Hx of vasectomy Family History Family History Mother Diabetes mellitus Social History Social History Smoking status: Current every day smoker Tobacco type: cigarettes Alcohol intake: never Substance use: never Substance use type: does not use Do You Feel Safe in your Home?: Yes Lack of Transportation: No Lack of Food: Never True Current Housing: I Have Housing Concerned About Future Housing: No Difficulty Paying Gas/Electric Bills: No Difficulty Paying for Meds: No Currently Unemployed: No Education: High School Diploma/GED Difficulty w/ Childcare or Family Care: No Living arrangements: with family Additional living arrangements comments: Lives in [place] with his and 4 children. Occupation/Education: occupation Gender identity (if verbalized by the patient): Male Spiritual care concerns: No Exam 2 Narrative: GENERAL: Well-appearing, well-nourished, and in no acute distress. HEAD: Normocephalic, atraumatic. ENT: Mucous membranes moist. NECK: Supple. CHEST: Clear to auscultation. No respiratory distress. HEART: Regular rate and rhythm. Normal peripheral pulses. ABDOMEN: Soft, nontender, nondistended. EXTREMITIES: Normal range of motion. No edema. SKIN: Warm, dry, no rash. NEURO: Alert and oriented x3. PSYCH: Normal mood and affect. Course Course Emergency Course: Patient resting comfortably. Intermittently gets discomfort around the periumbilical lower abdomen area. Labs [place] [address] which is nonspecific but elevated. Discussed biliary colic. Discussed low-fat diet. Discussed outpatient treatment and follow-up with General surgery. Patient verbalized understanding. Vital Signs Vital signs: Vital Signs Temperature 97.8 F 12/05/24 21:19 Pulse Rate 82 12/05/24 21:19 Respiratory Rate 14 12/05/24 21:19 Blood Pressure 115/64 12/05/24 21:19 Pulse Oximetry 98 12/05/24 21:19 Oxygen Delivery Room Air 12/05/24 21:19 Temperature 97.8 F 12/05/24 21:19 Pulse Rate 78 12/05/24 21:36 Respiratory Rate 14 12/05/24 21:19 Blood Pressure 115/64 12/05/24 21:19 Pulse Oximetry 99 12/05/24 21:37 Oxygen Delivery Room Air 12/05/24 21:37 Medical Decision Making Vital Signs Vital Signs: Vital Signs Temperature 97.8 F 12/05/24 21:19 Pulse Rate 82 12/05/24 21:19 Respiratory Rate 14 12/05/24 21:19 Blood Pressure 115/64 12/05/24 21:19 Pulse Oximetry 98 12/05/24 21:19 Oxygen Delivery Room Air 12/05/24 21:19 Temperature 97.8 F 12/05/24 21:19 Pulse Rate 78 12/05/24 21:36 Respiratory Rate 14 12/05/24 21:19 Blood Pressure 115/64 12/05/24 21:19 Pulse Oximetry 99 12/05/24 21:37 Oxygen Delivery Room Air 12/05/24 21:37 Lab Data 12/05/24 21:33 12/05/24 21:33 Labs: Lab Results 12/05/24 Range/Units 21:33 WBC 13.1 H (4.5-10.0) K/mm3 RBC 5.20 (4.6-6.20) M/mm3 Hgb 14.8 (14.0-18.0) g/dL Hct 45.2 (42.0-52.0) % MCV 86.9 (80-100) fl MCH 28.5 (26-34) pg MCHC 32.7 (32-36) g/dl RDW 13.2 (11.5-14.5) % Plt Count 376 H (150-375) k/mm3 MPV 9.6 (7.4-10.4) fl Immature Gran % (Auto) 0.4 (0-0.5) % Neut % (Auto) 68.7 (45.5-73.1) % Lymph % (Auto) 20.7 (18.3-44.2) % [place] % (Auto) 6.6 (2.6-8.5) % Eos % (Auto) 3.1 (0-4.4) % Baso % (Auto) 0.5 (0.2-1.2) % Lymph # (Auto) 2.72 (0.9-3.2) K/mm3 [place] # (Auto) 0.9 H (0.1-0.6) K/mm3 Eos # (Auto) 0.4 H (0-0.3) K/mm3 Baso # (Auto) 0.1 (0.0-0.1) K/mm3 Abs Immat Gran (auto) 0.05 H (0.00-0.031) K/mm3 Absolute Neuts (auto) 9.0 H (1.3-6.7) K/mm3 Absolute Nucleated RBC 0.000 (0.0-0.012) K/mm3 Nucleated RBC % 0.0 (0.0-0.2) % PT 12.7 (11.1-14.7) Seconds INR 1.0 APTT 31.9 (22.3-36.8) Seconds Sodium 138 (137-145) mmol/L Potassium 3.7 (3.4-5.0) mmol/L Chloride 106 (98-107) mmol/L Carbon Dioxide 24 (22-30) mmol/L Anion Gap 8 (4-12) mmol/L BUN 17 (9-20) mg/dL Creatinine 1.04 (0.7-1.3) mg/dL Estim Creat Clear Calc 108 ml/min Estimated GFR > 60 (59 - ) Glucose 107 (65-110) mg/dL Calcium 9.8 (8.4-10.2) mg/dL Total Bilirubin 0.3 (0.2-1.3) mg/dL AST 38 (17-59) U/L ALT 34 (6-50) U/L Alkaline Phosphatase 76 (38-126) U/L Troponin I < 0.012 (0.000-0.034) ng/mL Total Protein 7.7 (6.3-8.2) g/dL Albumin 4.4 (3.5-5.1) g/dL Lipase 118 (23-300) U/L Imaging Data Radiologist's impression: ITS Impressions Chest X-Ray 12/05/24 21:59 IMPRESSION: No acute cardiopulmonary pathology. Abdomen/Pelvis CT 12/05/24 22:21 IMPRESSION: 1. No evidence of appendicitis, diverticulitis or intestinal obstruction. 2. Highly suggestive cholelithiasis. 3. Constipation. ECG Data EKG #1: ECG completion date: 12/05/24 ECG completion time: 21:26 EKG Interpretation: normal rate, sinus rhythm, non-specific ST changes, normal QRS, normal QT and NL axis Discharge Plan Discharge Clinical Impression: Biliary colic Patient Disposition: Home Condition: Stable Instructions: Biliary Colic (ED), Low Fat Diet (ED) Additional Instructions: Return to the emergency department if you develop severe abdominal pain, severe nausea and vomiting to the point where you are unable to keep down fluids, if you develop chest pain or difficulty breathing, blood in your stool, dizziness or fainting, or if you develop any other new or concerning symptoms as these could be signs of more serious medical illness. Try to stay well hydrated. Follow-up with general surgery to be evaluated for a cholecystectomy. Patient Language: Libyan Prescriptions: New hydrocodone-acetaminophen 5-325 mg tablet 1 tablet PO Q6H PRN (Reason: pain) Qty: 12 0RF ondansetron 4 mg tablet,disintegrating 4 mg PO Q6H PRN (Reason: nausea and vomiting) Qty: 10 0RF Follow-up/Referrals: Chio,Alanna Ramos MD [Primary Care Provider] - 1 Week Kai Wood MD [Physician] - 1 Week
[2024-12-05 21:37] VITALS: O2SAT 99
[2024-12-05] MEDS: SODIUM CHLORIDE 0.9% IV 1,000 ML 999 ML IV CONT (21:37)
[2024-12-05 21:38] LABS: Basophils Absolute Auto 0.1 K/mm3 (0.0-0.1); Basophils Percent Auto 0.5 % (0.2-1.2); Eosinophils Absolute Auto 0.4 K/mm3 (0-0.3); Eosinophils Percent Auto 3.1 % (0-4.4); Hematocrit 45.2 % (42.0-52.0); Hemoglobin 14.8 g/dL (14.0-18.0); Immature Granulocyte Absolute 0.05 K/mm3 (0.00-0.031); Immature Granulocyte Percent A 0.4 % (0-0.5); Lymphocytes Absolute Auto 2.72 K/mm3 (0.9-3.2); Lymphocytes Percent Auto 20.7 % (18.3-44.2); Mean Corpuscular HGB Conc 32.7 g/dl (32-36); Mean Corpuscular Hemoglobin 28.5 pg (26-34); Mean Corpuscular Volume 86.9 fl (80-100); Mean Platelet Volume 9.6 fl (7.4-10.4); Monocytes Absolute Auto 0.9 K/mm3 (0.1-0.6); Monocytes Percent Auto 6.6 % (2.6-8.5); Neutrophils Percent Auto 68.7 % (45.5-73.1); Platelet Count Result 376 k/mm3 (150-375); Red Cell Distribution Width 13.2 % (11.5-14.5); White Blood Count 13.1 K/mm3 (4.5-10.0)
[2024-12-05] MEDS: ASPIRIN 81 MG CHEWABLE TABLET 324 MG PO (21:38)
[2024-12-05] MEDS: ONDANSETRON INJ 4 MG/2 ML VIAL IV PUSH (21:38)
[2024-12-05 21:48] LABS: Alanine Aminotransferase 34 U/L (6-50); Albumin Level 4.4 g/dL (3.5-5.1); Alkaline Phosphatase 76 U/L (38-126); Anion Gap 8 mmol/L (4-12); Aspartate Amino Transferase 38 U/L (17-59); Bilirubin,Total 0.3 mg/dL (0.2-1.3); Blood Urea Nitrogen 17 mg/dL (9-20); Calcium 9.8 mg/dL (8.4-10.2); Carbon Dioxide 24 mmol/L (22-30); Chloride 106 mmol/L (98-107); Estimated CRCL calculation 108 ml/min; Estimated Glomerular Filt Rate > 60; Glucose 107 mg/dL (65-110); Lipase 118 U/L (23-300); Potassium 3.7 mmol/L (3.4-5.0); Sodium 138 mmol/L (137-145); Total Protein 7.7 g/dL (6.3-8.2)
[2024-12-05 21:49] LABS: Prothrombin Time 12.7 Seconds (11.1-14.7)
[2024-12-05 21:50] LABS: Partial Thromboplastin Time 31.9 Seconds (22.3-36.8)
[2024-12-05 22:00] LABS: Troponin I < 0.012 ng/mL (0.000-0.034)
[2024-12-05 23:15] VITALS: BP 111/72; PULSE 61; RESP 15; O2SAT 96
--- NOTE | 2024-12-05 23:43 | PC.NURSE ---
Assumed care of patient at 1925 after receiving bedside report from Radha Anaya RN.
[2024-12-06 00:23] VITALS: BP 130/86; PULSE 57; RESP 14; TEMP 36.5; O2SAT 94
== END 2024-12-06 00:24 | disposition home or self-care (01) ==
PROVIDERS: Student in an Organized Health Care Education/Training Program; Emergency Provider Emergency Medicine; PCP Family Medicine
DX: K80.20 Calculus of gallbladder without cholecystitis without obstruction (principal); E66.9 Obesity, unspecified; Z68.35 Body mass index [BMI] 35.0-35.9, adult; F17.210 Nicotine dependence, cigarettes, uncomplicated; K59.00 Constipation, unspecified
CPT/HCPCS: 36415; 71046; 74177; 80053; 83690; 84484; 85025; 85610; 85730; 93005; 96361; 96374; 99284; A9270; J2405; J7030; Q9967

== ENCOUNTER 2024-12-06 09:12 | Emergency (ER) | payer BC, MEDICAID, SELFPAY ==
--- NOTE | ~2024-12-06 | US_ITS ---
US abdomen limited INDICATION: Abdomen pain PROCEDURE: Realtime right upper abdominal ultrasound. COMPARISON: No prior studies for comparison. FINDINGS: The pancreas is normal without focal mass or pancreatic ductal dilation. Liver echotexture is increased, consistent with fatty infiltration. There is normal directional flow in the portal ve in. There is gallbladder sludge. No gallstones or gallbladder wall thickening. Common bile duct measures 4 mm. No sonographic Coyle's sign. IMPRESSION: 1: Fatty infiltration of the liver. 2: Gallbladder sludge. Reviewed, dictated and finalized at location B.
[2024-12-06 09:16] VITALS: BP 133/89; PULSE 63; RESP 16; TEMP 36.6; O2SAT 99
--- NOTE | 2024-12-06 09:59 | ED_ITS ---
HPI - General Adult General Chief complaint: Abdominal Pain Stated complaint: ab pain Time Seen by Provider: 12/06/24 09:16 History of Present Illness HPI narrative: 39-year-old male returning to the emergency department for evaluation for worsening abdominal pain. Patient was evaluated emergency department last night and suspected to have biliary colic. CT scan did show evidence of cholelithiasis with no evidence appendicitis, diverticulitis or distal obstruction. Patient does have evidence of constipation on the CT scan. Patient has no significant right upper quadrant tenderness to palpation and mainly complains of lower abdominal pain. Related Data Allergies Allergy/AdvReac Type Severity Reaction Status Date / Time No Known Allergies Allergy Verified 12/06/24 09:13 Review of Systems 2 Review of Systems: All systems reviewed & are unremarkable except as noted in HPI and below PMFSH Past Medical History Medical History Obesity Surgical History Surgical History History of incision and drainage 2020 - I&D for mandibular abscess Hx of vasectomy Family History Family History Mother Diabetes mellitus Social History Social History Smoking status: Current every day smoker Tobacco type: cigarettes Alcohol intake: never Substance use: never Substance use type: does not use Do You Feel Safe in your Home?: Yes Lack of Transportation: No Lack of Food: Never True Current Housing: I Have Housing Concerned About Future Housing: No Difficulty Paying Gas/Electric Bills: No Difficulty Paying for Meds: No Currently Unemployed: No Education: High School Diploma/GED Difficulty w/ Childcare or Family Care: No Living arrangements: with family Additional living arrangements comments: Lives in [place] with his and 4 children. Occupation/Education: occupation Gender identity (if verbalized by the patient): Male Spiritual care concerns: No Exam 2 Narrative: APPEARANCE: Well appearing, no pain, no distress, well-nourished. HEAD: normocephalic, atraumatic. EYES: PERRLA/EOMI, conjunctivae clear. NOSE: Normal no drainage EARS:TMS clear with good light reflex. THROAT: Pharynx clear, no exudate. NECK: Supple. No adenopathy, no masses. RESPIRATORY: Airway patent, respirations nonlabored. Clear to auscultation bilaterally, no rales, rhonchi, wheezing. CARDIOVASCULAR: Regular rate and rhythm without murmurs rubs or gallops. ABDOMINAL: Lower abdominal tenderness to palpation without significant right upper quadrant tenderness MUSCULOSKELETAL: Moves all extremities. Strength/ROM intact, No edema, No calf tenderness. NEURO: Alert. Cranial nerves II through XII intact. Good gait. Good coordination SKIN: Warm, dry. Normal Color Course Vital Signs Vital signs: Vital Signs Temperature 98 F 12/06/24 09:16 Pulse Rate 63 12/06/24 09:16 Respiratory Rate 16 12/06/24 09:16 Blood Pressure 133/89 12/06/24 09:16 Pulse Oximetry 99 12/06/24 09:16 Oxygen Delivery Room Air 12/06/24 09:16 Temperature 97.6 F 12/06/24 12:08 Pulse Rate 57 L 12/06/24 11:13 Respiratory Rate 16 12/06/24 11:13 Blood Pressure 136/96 H 12/06/24 11:13 Pulse Oximetry 96 12/06/24 11:13 Oxygen Delivery Room Air 12/06/24 09:16 Medical Decision Making MDM Narrative Medical decision making narrative: 31-year-old male presents to the emergency department for evaluation for lower abdominal pain. Patient's initial CT scan was concerning for constipation with some possible biliary colic. Patient is currently afebrile but does have a leukocytosis of 12.7, this is improved compared to his white blood cell count last night. Patient has an INR 0.9. Patient has no acute elevation in lactic acid T bili AST ALT or alk-phos. Patient has no significant upper abdominal tenderness to palpation. Patient does have some lower abdominal tenderness to palpation. Higher concern for constipation rather than biliary colic. Patient was advised to increase his MiraLax dosing. Patient was also updated the results of the workup and educated on reasons to return to the emergency department. Differential Diagnosis Differential Diagnosis: Colitis, diverticulitis, appendicitis, cholecystitis, biliary colic, constipation Vital Signs Vital Signs: Vital Signs Temperature 98 F 12/06/24 09:16 Pulse Rate 63 12/06/24 09:16 Respiratory Rate 16 12/06/24 09:16 Blood Pressure 133/89 12/06/24 09:16 Pulse Oximetry 99 12/06/24 09:16 Oxygen Delivery Room Air 12/06/24 09:16 Temperature 97.6 F 12/06/24 12:08 Pulse Rate 57 L 12/06/24 11:13 Respiratory Rate 16 12/06/24 11:13 Blood Pressure 136/96 H 12/06/24 11:13 Pulse Oximetry 96 12/06/24 11:13 Oxygen Delivery Room Air 12/06/24 09:16 Lab Data Lab results reviewed: Yes I reviewed the patient's lab results. 12/06/24 10:44 12/06/24 10:44 Labs: Lab Results 12/06/24 Range/Units 10:44 WBC 12.7 H (4.5-10.0) K/mm3 RBC 5.11 (4.6-6.20) M/mm3 Hgb 14.7 (14.0-18.0) g/dL Hct 44.6 (42.0-52.0) % MCV 87.3 (80-100) fl MCH 28.8 (26-34) pg MCHC 33.0 (32-36) g/dl RDW 13.2 (11.5-14.5) % Plt Count 392 H (150-375) k/mm3 MPV 10.4 (7.4-10.4) fl Immature Gran % (Auto) 0.5 (0-0.5) % Neut % (Auto) 60.4 (45.5-73.1) % Lymph % (Auto) 24.9 (18.3-44.2) % Sterling % (Auto) 8.7 H (2.6-8.5) % Eos % (Auto) 4.8 H (0-4.4) % Baso % (Auto) 0.7 (0.2-1.2) % Lymph # (Auto) 3.16 (0.9-3.2) K/mm3 Sterling # (Auto) 1.1 H (0.1-0.6) K/mm3 Eos # (Auto) 0.6 H (0-0.3) K/mm3 Baso # (Auto) 0.1 (0.0-0.1) K/mm3 Abs Immat Gran (auto) 0.06 H (0.00-0.031) K/mm3 Absolute Neuts (auto) 7.7 H (1.3-6.7) K/mm3 Absolute Nucleated RBC 0.000 (0.0-0.012) K/mm3 Nucleated RBC % 0.0 (0.0-0.2) % PT 12.0 (11.1-14.7) Seconds INR 0.9 APTT 30.9 (22.3-36.8) Seconds Sodium 140 (137-145) mmol/L Potassium 3.7 (3.4-5.0) mmol/L Chloride 107 (98-107) mmol/L Carbon Dioxide 25 (22-30) mmol/L Anion Gap 8 (4-12) mmol/L BUN 13 (9-20) mg/dL Creatinine 1.00 (0.7-1.3) mg/dL Estim Creat Clear Calc 114 ml/min Estimated GFR > 60 (59 - ) Glucose 112 H (65-110) mg/dL Lactic Acid 1.2 (0.7-2.0) mmol/L Calcium 9.7 (8.4-10.2) mg/dL Total Bilirubin 0.2 (0.2-1.3) mg/dL AST 35 (17-59) U/L ALT 33 (6-50) U/L Alkaline Phosphatase 67 (38-126) U/L Total Protein 7.4 (6.3-8.2) g/dL Albumin 4.2 (3.5-5.1) g/dL Imaging Data Radiologist's impression: Impressions Abdomen Ultrasound 12/06/24 10:53 IMPRESSION: 1: Fatty infiltration of the liver. 2: Gallbladder sludge. Discharge Plan Discharge Clinical Impression: Abdominal pain, Constipation Patient Disposition: Home Condition: Stable Instructions: Antibiotic Form, Constipation (DC), Abdominal Pain (ED) Additional Instructions: Increase your water intake, increase your MiraLax dosing. Have close follow-up with your primary care physician. I do recommend close follow-up with GI. If you have any worsening symptoms then please call or return to the emergency department. Patient Language: Nepali Prescriptions: No Action hydrocodone-acetaminophen 5-325 mg tablet 1 tablet PO Q6H PRN (Reason: pain) Qty: 12 0RF ondansetron 4 mg tablet,disintegrating 4 mg PO Q6H PRN (Reason: nausea and vomiting) Qty: 10 0RF Follow-up/Referrals: Chio,Alanna Ramos MD [Primary Care Provider] - Hola Buck MD [Physician] -
[2024-12-06 10:53] LABS: Basophils Absolute Auto 0.1 K/mm3 (0.0-0.1); Basophils Percent Auto 0.7 % (0.2-1.2); Eosinophils Absolute Auto 0.6 K/mm3 (0-0.3); Eosinophils Percent Auto 4.8 % (0-4.4); Hematocrit 44.6 % (42.0-52.0); Hemoglobin 14.7 g/dL (14.0-18.0); Immature Granulocyte Absolute 0.06 K/mm3 (0.00-0.031); Immature Granulocyte Percent A 0.5 % (0-0.5); Lymphocytes Absolute Auto 3.16 K/mm3 (0.9-3.2); Lymphocytes Percent Auto 24.9 % (18.3-44.2); Mean Corpuscular Hemoglobin 28.8 pg (26-34); Mean Corpuscular Volume 87.3 fl (80-100); Mean Platelet Volume 10.4 fl (7.4-10.4); Monocytes Absolute Auto 1.1 K/mm3 (0.1-0.6); Monocytes Percent Auto 8.7 % (2.6-8.5); Neutrophils Absolute Auto 7.7 K/mm3 (1.3-6.7); Neutrophils Percent Auto 60.4 % (45.5-73.1); Platelet Count Result 392 k/mm3 (150-375); Red Blood Count 5.11 M/mm3 (4.6-6.20); Red Cell Distribution Width 13.2 % (11.5-14.5); White Blood Count 12.7 K/mm3 (4.5-10.0)
[2024-12-06 11:02] LABS: Alanine Aminotransferase 33 U/L (6-50); Albumin Level 4.2 g/dL (3.5-5.1); Alkaline Phosphatase 67 U/L (38-126); Anion Gap 8 mmol/L (4-12); Aspartate Amino Transferase 35 U/L (17-59); Bilirubin,Total 0.2 mg/dL (0.2-1.3); Blood Urea Nitrogen 13 mg/dL (9-20); Calcium 9.7 mg/dL (8.4-10.2); Carbon Dioxide 25 mmol/L (22-30); Chloride 107 mmol/L (98-107); Estimated CRCL calculation 114 ml/min; Estimated Glomerular Filt Rate > 60; Glucose 112 mg/dL (65-110); Lactic Acid Reflex 1.2 mmol/L (0.7-2.0); Potassium 3.7 mmol/L (3.4-5.0); Sodium 140 mmol/L (137-145); Total Protein 7.4 g/dL (6.3-8.2)
[2024-12-06 11:03] LABS: INR 0.9
[2024-12-06 11:04] LABS: Partial Thromboplastin Time 30.9 Seconds (22.3-36.8)
[2024-12-06] MEDS: ONDANSETRON INJ 4 MG/2 ML VIAL IV PUSH (11:11)
[2024-12-06 11:13] VITALS: BP 136/96; PULSE 57; RESP 16; O2SAT 96
[2024-12-06] MEDS: HYDROmorphone HCL INJ (*CRX) 2 MG/ML VIAL 1 MG IV PUSH (11:13)
[2024-12-06 12:08] VITALS: TEMP 36.4
== END 2024-12-06 12:08 | disposition home or self-care (01) ==
PROVIDERS: Emergency Provider Emergency Medicine; PCP Family Medicine
DX: K59.00 Constipation, unspecified (principal); E66.9 Obesity, unspecified; Z68.37 Body mass index [BMI] 37.0-37.9, adult; F17.210 Nicotine dependence, cigarettes, uncomplicated; K76.0 Fatty (change of) liver, not elsewhere classified; R93.2 Abnormal findings on diagnostic imaging of liver and biliary tract
CPT/HCPCS: 36415; 76705; 80053; 83605; 85025; 85610; 85730; 96374; 96375; 99284; J1171; J2405

== ENCOUNTER 2025-03-11 00:43 | Emergency (ER) | payer BC, MEDICAID, SELFPAY ==
[2025-03-11 00:48] VITALS: BP 139/94; PULSE 82; RESP 16; TEMP 36.4; O2SAT 97
--- NOTE | 2025-03-11 00:56 | ED_ITS ---
HPI - Dental/Oral General Chief complaint: Dental/Oral Stated complaint: toothache Time Seen by Provider: 03/11/25 00:49 Source: patient Mode of arrival: ambulatory Limitations: no limitations History of Present Illness HPI Narrative: This is a 39-year-old male with no significant past medical history presents the ED for tooth pain. Patient states for past month or so, he has been having right-sided tooth pain. He believes that he got something stuck in his 2 yesterday and when he was picking out he believes he flared out the pain. He just recently started a month ago in his dental insurance has not kicked in yet so he is waiting for an appointment with his dentist once he is able. Denies fevers, chills. He has been taking Tylenol and ibuprofen with minimal relief. Related Data Allergies Allergy/AdvReac Type Severity Reaction Status Date / Time No Known Allergies Allergy Verified 03/11/25 00:50 Review of Systems Review of Systems: Gen.: Denies fevers or chills Eyes: Denies eye pain or visual change ENT: Denies congestion Respiratory: Denies shortness of breath or cough CV: Denies chest pain or palpitations GI: Denies abdominal pain nausea, emesis or diarrhea denies burning, urgency, frequency or hematuria Musculoskeletal: Denies back pain or muscle pain Neuro: Denies numbness, tingling, weakness or focal weakness Skin: Denies rash Except as documented, all other systems reviewed and negative [facility] Past Medical History Medical History Obesity Surgical History Surgical History History of incision and drainage 2020 - I&D for mandibular abscess Hx of vasectomy Family History Family History Mother Diabetes mellitus Social History Social History Smoking status: Current every day smoker Tobacco type: cigarettes Alcohol intake: never Substance use: never Substance use type: does not use Do You Feel Safe in your Home?: Yes Lack of Transportation: No Lack of Food: Never True Current Housing: I Have Housing Concerned About Future Housing: No Difficulty Paying Gas/Electric Bills: No Difficulty Paying for Meds: No Currently Unemployed: No Education: High School Diploma/GED Difficulty w/ Childcare or Family Care: No Living arrangements: with family Additional living arrangements comments: Lives in [place] with his and 4 children. Occupation/Education: occupation Gender identity (if verbalized by the patient): Male Spiritual care concerns: No Exam Narrative: APPEARANCE: No acute distress, nontoxic, resting in bed HEENT: Normocephalic, atraumatic, OMM. Dental fracture to tooth 27 and significant dental lena to tooth 30, no areas of fluctuance or drainage. RESPIRATORY: No respiratory distress CARDIOVASCULAR: Appears well perfused ABDOMINAL: Nondistended MUSCULOSKELETAl: Moves all extremities. No obvious deformities NEURO: Awake and alert. SKIN:: Warm, dry. No rashes lesions or abrasions PSYCHIATRIC: Normal affect/mood, Course Vital Signs Vital signs: Vital Signs Temperature 97.6 F 03/11/25 00:48 Pulse Rate 82 03/11/25 00:48 Respiratory Rate 16 03/11/25 00:48 Blood Pressure 139/94 H 03/11/25 00:48 Pulse Oximetry 97 03/11/25 00:48 Oxygen Delivery Room Air 03/11/25 00:48 Temperature 97.6 F 03/11/25 00:48 Pulse Rate 82 03/11/25 00:48 Respiratory Rate 16 03/11/25 00:48 Blood Pressure 139/94 H 03/11/25 00:48 Pulse Oximetry 97 03/11/25 00:48 Oxygen Delivery Room Air 03/11/25 00:48 MDM - Dental/Oral MDM Narrative Medical decision making narrative: 39-year-old male who presented to the ED for tooth pain. On initial evaluation, patient was in no acute distress, afebrile, hemodynamically stable. He did have multiple dental caries as above with no areas of fluctuance. Patient will be given Toradol and Augmentin. He was given prescriptions for Augmentin and hydrocodone. He has appointment with the dentist coming up within the next month which I encouraged him to go to. Patient was agreeable to this plan. Given strict return precautions. Differential Diagnosis Differential diagnosis: Likely gingival abscess, dental caries, toothache, dental abscess and fracture of tooth Medical Records Attestation: I reviewed the patient's medical records. Discharge Plan Discharge Clinical Impression: Acute pulpitis Patient Disposition: Home Condition: Stable Instructions: Antibiotic Form, Toothache (ED) Additional Instructions: Take Augmentin as prescribed. Follow up with a dentist as soon as you can. Return the ED for any new or worsening symptoms. Patient Language: Montenegrin Prescriptions: New amoxicillin-pot clavulanate 875-125 mg tablet 1 tablet PO Q12H 7 Days Qty: 14 0RF hydrocodone-acetaminophen 5-325 mg tablet 1 tablet PO Q8H PRN (Reason: pain) Qty: 8 0RF Follow-up/Referrals: Chio,Alanna Ramos MD [Primary Care Provider] Stand Alone Forms: Work/School Release IP
[2025-03-11] MEDS: KETOROLAC 30 MG/ML VIAL (*BKC) IM (00:57)
== END 2025-03-11 01:05 | disposition home or self-care (01) ==
LOC: ANHED 00:58
PROVIDERS: Emergency Provider Student in an Organized Health Care Education/Training Program; PCP Family Medicine
DX: K04.01 Reversible pulpitis (principal); E66.9 Obesity, unspecified; Z68.36 Body mass index [BMI] 36.0-36.9, adult; F17.210 Nicotine dependence, cigarettes, uncomplicated
CPT/HCPCS: 96372; 99283; A9270; J1885

== ENCOUNTER 2025-03-15 05:56 | Emergency (ER) | payer BC, MEDICAID, SELFPAY ==
--- OUTSIDE RECORDS SUMMARY | 2025-03-13 20:15 | XMS_ITS | Encounter Summary ---
Author Organization [facility] Address [facility] [place] [address] Care Team Providers Care Preschool Assistant Teacher Name Role Phone Non-Staff, Provider Primary Care Provider Corinne arellano Reason for Visit * Reason Comments Dental Pain Encounter Details Date Type Department Care Team (Late st Contact Info) Description 03/13/2025 8:15 PM CDT - 03/13/2025 9:[address] [facility] [place] [address] Keshav Beyer PA [address] [place] [address] Dental Pain Discharge Disposition: Home or Self Care (Routine Discharge) Social History Tobacco Use Types Packs/Day Years Used Date Smoking Tobacco: Every Day Cigarettes Smokeless Tobacco: Never Tobacco Cessation:Ready to Q uit: Not Asked; Counseling Given: Not Answered Alcohol Use Standard Drinks/Week Comments Not Currently 0 (1 standard drink = 0.6 oz pur e alcohol) Sex and Gender Information Value Date Recorded Sex Assigned at Male 03/13/2025 7:18 PM CDT Legal Sex Male 6:55 PM CDT Gender Identity Not on file Sexual Orientation Not on file documented as of this encounter Last Filed Vital Signs Vital Sign Reading Time Taken Comments Blood Pressure 109/76 03/13/2025 8:39 PM CDT Pulse 59 03/13/2025 8:39 PM CDT Temperature 36.3 C (97.4 F) 03/13/2025 7:01 PM CDT Respiratory Rate 16 03/13/2025 8:39 PM CDT Oxygen Saturation 99% 03/13/2025 8:39 PM CDT Inhaled Oxygen Concentration - - Weight 113.4 kg (250 lb) 03/13/2025 7:01 PM CDT Height 177.8 cm (5' 10) 03/13/2025 7:01 PM CDT Body Mass Index 35.87 03/13/2025 7:01 PM CDT documented in this encounter Functional Status * Calculated C-SSRS Risk Score (Lifetime/Recent) Answer Date of Assessment Author Status No Risk Indicated 03/13/2025 7:17 PM CDT Kate Akins RN Active * [place]ide Suicide Severity Rating Scale (Screener/Recent Self-Report) Question Answer Date of Assessment Author Status 1. Wish to be (Past 1 Month) No 03/13/2025 7:17 PM CDT Peng Akins RN Acti ve 2. Non-Specific Active Suicidal Thoughts (Past 1 Month) No 03/13/2025 7:17 PM CDT Peng Akins RN Acti ve 6. Suicidal Behavior (Lifetime) No 03/13/2025 7:17 PM CDT Peng Akins RN Acti ve documented as of this encounter Discharge Instructions * Discharge Instructions* ISABEL Velez - 03/13/2025 8:58 PM CDT Take medication as prescribed. Follow-up with your primary care provider in 5 to 7 days. Return emergency department symptoms worsen or new concerns. * Attachments The following attachments cannot be sent through Care Everywhere. * Dental Pain Discharge Instructions (Niuean) documented in this encounter Medications at Time of Discharge lidocaine viscous (XYLOCAINE) 2 % solution Take 5 mLs by mouth every 6 (six) hours as needed for Pain. Placed on cotton ball or gauze in place to affected tooth for 5 to 10 minutes, rinse and spit out following 100 mL 03/13/2025 ondansetron (ZOFRAN-ODT) 4 MG disintegrating tablet Take 1 tablet (4 mg total) by mouth every 8 (eight) hours as needed. 20 tablet 03/13/2025 oxyCODONE-acetaminop hen (PERCOCET) 5-325 MG tabletIndications:Ac false pass Pain < 3 Day Supply Take 1 tablet by mouth every 4 (four) hours as needed. Indications: Acute Pain < 3 Day Supply 15 tablet 03/13/2025 documented as of this encounter ED Notes * ISABEL Velez - 03/13/2025 7:20 PM CDT ED NOTE Chief Complaint Chief Complaint Patient presents with Dental Pain History of Present Illness 39-year-old male presenting to emergency department for evaluation of continued dental pain over the past 2 days. Was seen by dentist 2 days ago and started on antibiotics. Reports has continued painand swelling today. Does report using hot amount of Orajel earlier and was having some nausea afterswallowing. Denies any current fevers difficulty breathing or difficulty swallowing. Medical History ALLERGIES: Review of patient's allergies indicates: No Known Allergies MEDICATIONS: Prior to Admission medications Medication Sig Start Date End Date Taking? Authorizing Provider lidocaine viscous (XYLOCAINE) 2 % solution Take 5 mLs by mouth every 6 (six) hours as needed for Pain. Placed on cotton ball or gauze in place to affected tooth for 5 to 10 minutes, rinse and spit out following 03/13/25 Yes ISABEL Velez ondansetron (ZOFRAN-ODT) 4 MG disintegrating tablet Take 1 tablet (4 mg total) by mouth every 8 (eight) hours as needed. 03/13/25 Yes ISABEL Velez oxyCODONE-acetaminophen (PERCOCET) 5-325 MG tablet Take 1 tablet by mouth every 4 (four) hours as needed. Indications: Acute Pain < 3 Day Supply 03/13/25 Yes ISABEL Velez PAST MEDICAL HISTORY: Past Medical History[1] PAST SURGICAL HISTORY: Past Surgical History[2] FAMILY HISTORY: Family History[3] SOCIAL HISTORY: Social History[4] Review of Systems As stated in HPI Physical Exam Filed Vitals: 03/13/25 1901 03/13/252038 BP: 132/81 109/76 Pulse: 72 (!) 59 Resp: 14 16 Temp: 97.4 ??F (36.3 ??C) TempSrc: Temporal SpO2: 100% 99% Weight: 113.4 kg (250 lb) Height: 1.778 m (5' 10) Physical Exam Vitals and nursing note reviewed. Constitutional: General: He is not in acute distress. Appearance: He is well-developed. HENT: Head: Normocephalic. Comments: Mild swelling to right maxillary region no palpable abscess. Nose: Nose normal. Pulmonary: Effort: Pulmonary effort is normal. No respiratory distress. Musculoskeletal: Cervical back: Normal range of motion and neck supple. Skin: General: Skin is warm and dry. Neurological: Mental Status: He is alert and oriented to person, place, and time. Psychiatric: Behavior: Behavior normal. Thought Content: Thought content normal. Judgment: Judgment normal. Diagnostic Studies / Procedures ELECTROCARDIOGRAMS: No results found for this visit on 03/13/25. LABORATORY STUDIES: No results found for this visit on 03/13/25. IMAGING STUDIES No orders to display ED Course / Medical Decision Making MDM Patient reports relief following medications and is currently on Augmentin no evidence of dental abscess or worsening infection will continue with symptomatic treatment and patient continue with antibiotics and outpatient follow-up with dentist. Medications ketorolac (TORADOL) injection 30 mg (30 mg Intramuscular Given 03/13/252018) oxyCODONE-acetaminophen (PERCOCET) 5-325 MG tablet 1 tablet (1 tablet Oral Given 03/13/252018) ondansetron (ZOFRAN-ODT) disintegrating tablet 4 mg (4 mg Oral Given 03/13/252018) Clinical Impression Pain, dental (Primary) Discharge Medication List as of 03/13/2025 9:01 PM START taking these medications Details lidocaine viscous (XYLOCAINE) 2 % solution Take 5 mLs by mouth every 6 (six) hours as needed for Pain. Placed on cotton ball or gauze in place to affected tooth for 5 to 10 minutes, rinse and spit out following, Starting Emilee 03/13/2025, Eprescribe Class: Eprescribe Pharmacy: [facility] #[id number] - [place] [address] [address] AT [facility] (Ph #: [phone]) ondansetron (ZOFRAN-ODT) 4 MG disintegrating tablet Take 1 tablet (4 mg total) by mouth every 8 (eight) hours as needed., Starting [facility] 03/13/2025, Eprescribe Class: Eprescribe [id number] [address] AT [facility] (Ph #: [phone]) oxyCODONE-acetaminophen (PERCOCET) 5-325 MG tablet Take 1 tablet by mouth every 4 (four) hours as needed. Indications: Acute Pain < 3 Day Supply, Starting Emilee 03/13/2025, Eprescribe Class: Eprescribe [id number] [address] AT [facility] (Ph #: [phone]) Disposition: Discharge Follow-Up: Your primary care provider Schedule an appointment as soon as possible for a visit in 1 week ISABEL Velez 03/13/2025 [1] History reviewed. No pertinent past medical history. [2] History reviewed. No pertinent surgical history. [3] No family history on file. [4] Social History Tobacco Use Smoking status: Every Day Types: Cigarettes Smokeless tobacco: Never Substance Use Topics Alcohol use: Not Currently Drug use: Never ISABEL Velez 03/13/251 Cosigned by Narciso Crabtree MD at 03/13/2025 10:49 PM CDT * Peng Akins RN - 03/13/2025 7:15 PM CDT Pt to ED with c/o Rt sided dental pain. Pt states he was diagnosed with a dental infection, he was prescribed Augmentin and vicodin. Pt has been on antibiotics since yesterday. Pt states he did have an episode of chills/hot flashes and nausea earlier today which have since subsided. Pt denies any nausea/diarrhea chills/hot flashes at this time. documented in this encounter Plan of Treatment Not on file documented as of this encounter Visit Diagnoses Diagnosis Pain, dental- Primary Unspecified disorder of the teeth and supporting structures documented in this encounter Administered Medications Inactive Administered Medications - up to 3 most recent administrations Medication Order MAR Action Action Date Dose Rate Site ketorolac (TORADOL) injection 30 mg 30 mg, Intramuscular, Once, 1 dose, On Emilee 03/13/25 at 1930, For IV administration, give over 15 seconds. Given 03/13/2025 8:19 PM CDT 30 mg Right Deltoid ondansetron (ZOFRAN-ODT) disintegrating tablet 4 mg 4 mg, Oral, Once, 1 dose, On Emilee 03/13/25 at 1930 Given 03/13/2025 8:19 PM CDT 4 mg oxyCODONE-acetaminophen (PERCOCET) 5-325 MG tablet 1 tablet 1 tablet, Oral, Once, 1 dose, On Emilee 03/13/25 at 1930, Maximum dose of acetaminophen is 4000 mg from all sources in 24 hours. Given 03/13/2025 8:19 PM CDT 1 tablet documented in this encounter Active and Recently Administered Medications Times are shown in CDT. Scheduled Medication Order 03/11/2025 03/12/2025 03/13/2025 ketorolac (TORADOL) injection 30 mg (COMPLETED) 30 mg, Intramuscular, Once, 1 dose, On Emilee 03/13/25 at 1930, For IV administration, give over 15 seconds. 2019 (Given - Provid er: Celine Quesada RN) ondansetron (ZOFRAN-ODT) disintegrating tablet 4 mg (COMPLETED) 4 mg, Oral, Once, 1 dose, On Emilee 03/13/25 at 1930 2019 (Given - Provid er: Celine Quesada RN) oxyCODONE-acetaminophen (PERCOCET) 5-325 MG tablet 1 tablet (COMPLETED) 1 tablet, Oral, Once, 1 dose, On Emilee 03/13/25 at 1930, Maximum dose of acetaminophen is 4000 mg from all sources in 24 hours. 2019 (Given - Provid er: Celine Quesada RN) documented in this encounter Care Teams Preschool Assistant Teacher Relationship Specialty Start Date End Date Non-Staff, Provider PCP - General UNKNOWN PHYSICIAN SPECIALTY 03/13/25 documented as of this encounter
[2025-03-15 06:01] VITALS: BP 146/100; PULSE 81; RESP 20; TEMP 37.2; O2SAT 97
--- OUTSIDE RECORDS SUMMARY | 2025-03-15 06:02 | XMS_ITS | Clinical Summary ---
Author Organization [facility] Address [facility] [place] [address] Care Team Providers Care Open Cut Examiner Name Role Phone Non-Staff, Provider Primary Care Provider Unavai lable Allergies No known active allergies Medications oxyCODONE-acetamin ophen (PERCOCET) 5-325 MG tabletIndications: Acute Pain < 3 Day Supply Take 1 tablet by mouth every 4 (four) hours as needed. Indications: Acute Pain < 3 Day Supply 15 tablet 5 Active lidocaine viscous (XYLOCAINE) 2 % solution Take 5 mLs by mouth every 6 (six) hours as needed for Pain. Placed on cotton ball or gauze in place to affected tooth for 5 to 10 minutes, rinse and spit out following 100 mL 5 Active ondansetron (ZOFRAN-ODT) 4 MG disintegrating tablet Take 1 tablet (4 mg total) by mouth every 8 (eight) hours as needed. 20 tablet 5 Active Encounters Date Type Department Care Team Description 03/13/2025 8:15 PM CDT - 03/13/2025 9:07 PM CDT Emergency [facility] [place] [address] Keshav Beyer PA Dental Pain Discharge Disposition: Home or Self Care (Routine Discharge) 03/13/2025 Travel from Last 3 Months Social History Tobacco Use Types Packs/Day Years [...] on file Sexual Orientation Not on file Last Filed Vital Signs Vital Sign Reading [...] Mass Index 35.87 03/13/2025 7:01 PM CDT Plan of Treatment Health Maintenance Due Date Last Done Comments Annual Physical 1989 Hepatitis C 2004 DTaP, Tdap and Td Vaccines ( 1 - Tdap) 2005 Hepatitis B Vaccines (1 of 3 - 19+ 3-dose series) 2005 Pneumococcal Vaccine: Pediatrics (0 to 5 Years) and At-Risk Patients (6 to 49 Years) (1 of 2 - PCV) 2005 HPV Vaccines (1 - 3-dose SCD M series) 2013 COVID-19 Vaccine (3 - 2024-2 6 season) 2025 03/29/2021, 03/08/2021 Meningococcal B Vaccine Aged Out No l onger eligible based on patient's age to complete this topic Meningococcal Vaccine Aged Out No britany dmitry eligible based on patient's age to complete this topic RSV Immunizations Under 20 Months Aged Out No longer eligible b ased on patient's age to complete this topic Insurance [place] [address] [place] [address] Care Teams Open Cut Examiner Relationship Specialty Start Date End Date Non-Staff, Provider PCP - General UNKNOWN PHYSICIAN SPECIALTY 03/13/25
[2025-03-15 06:07] VITALS: BP 146/100; PULSE 80; RESP 20; TEMP 37.2; O2SAT 100
--- NOTE | 2025-03-15 06:21 | ED.DENTAL ---
HPI - Dental/Oral General Chief complaint: Dental/Oral Stated complaint: Toothache/ facial swelling Time Seen by Provider: 03/15/25 05:59 History of Present Illness HPI Narrative: Patient here with a toothache, increased swelling to the right jaw, had been seen and started on Augmentin and has been taking for the last 1-2 days. No issues in his mouth, no fevers or chills, did go to another ER for pain medication yesterday. Has dentist appointment Monday Related Data Allergies Allergy/AdvReac Type Severity Reaction Status Date / Time No Known Allergies Allergy Verified 03/15/25 06:08 Review of Systems Review of Systems: All systems reviewed & are unremarkable except as noted in HPI and below PMFSH Past Medical History Medical History Obesity Surgical History Surgical History History of incision and drainage 2020 - I&D for mandibular abscess Hx of vasectomy Family History Family History Mother Diabetes mellitus Social History Social History Smoking status: Current every day smoker Tobacco type: cigarettes Alcohol intake: never Substance use: never Substance use type: does not use Do You Feel Safe in your Home?: Yes Lack of Transportation: No Lack of Food: Never True Current Housing: I Have Housing Concerned About Future Housing: No Difficulty Paying Gas/Electric Bills: No Difficulty Paying for Meds: No Currently Unemployed: No Education: High School Diploma/GED Difficulty w/ Childcare or Family Care: No Living arrangements: with family Additional living arrangements comments: Lives in [place] with his and 4 children. Occupation/Education: occupation Gender identity (if verbalized by the patient): Male Spiritual care concerns: No Exam Narrative: EXAMINATION OF ORGAN SYSTEMS/BODY AREAS: Constitutional: Vital signs per nursing GENERAL:[No acute distress, non-toxic appearing.] HEAD: Normal with no signs of head trauma. EYES: EOMI, conjunctiva normal ENT: No trismus, has dental lena right lower premolar, with surrounding swelling, some area of fluctuance LUNGS: Nonlabored breathing. HEART: [Regular rate and rhythm] ABD: [Soft], [nontender to palpation] EXT: Normal range of motion SKIN: [No rashes or lesions.] NEURO: [Alert and oriented x 3. No gross focal sensory or strength deficits.] PSYCH: Normal affect Course Vital Signs Vital signs: Vital Signs Temperature 98.9 F 03/15/25 06:01 Pulse Rate 81 03/15/25 06:01 Respiratory Rate 20 03/15/25 06:01 Blood Pressure 146/100 H 03/15/25 06:01 Pulse Oximetry 97 03/15/25 06:01 Oxygen Delivery Room Air 03/15/25 06:01 Temperature 98.9 F 03/15/25 06:07 Pulse Rate 80 03/15/25 06:07 Respiratory Rate 20 03/15/25 06:07 Blood Pressure 146/100 H 03/15/25 06:07 Pulse Oximetry 100 03/15/25 06:07 Oxygen Delivery Room Air 03/15/25 06:01 MDM - Dental/Oral MDM Narrative Medical decision making narrative: ED COURSE AND MEDICAL DECISION MAKING: Patient with worsening dental pain and dental decay. Right lower premolar dental lena with surrounding palpable abscess I do feel could be amenable to drainage. Verbal consent obtained from patient for dental block and I&D. Thankfully he has no systemic signs or symptoms. Is already on 2 different antibiotics that should be adequate to cover. Follow-up instructions given for dental/oral surgery clinics. Patient was given return precautions and discharged home in stable condition. Dental block procedure note Verbal consent obtained from the patient after risks and benefits were explained. [Right inferior alveolar block] was done with 1 mL of bupivacaine 0.5% with epi. The patient has significant relief after the injection and tolerated the procedure well. I did try to put a needle in the area with the largest amount of fluctuance, unable to express any discharge. Discharge Plan Discharge Clinical Impression: Dental abscess Patient Disposition: Home Condition: Stable Instructions: Dental Abscess (ED) Additional Instructions: Please continue the antibiotics your taking, and follow-up with your dentist as planned in 2 days. If your swelling gets worse, if you are unable to open your mouth, if it spreads to your neck or anything else concerning, return to the ER immediately. Patient Language: Upper Sorbian Prescriptions: No Action amoxicillin-pot clavulanate 875-125 mg tablet 1 tablet PO Q12H 7 Days Qty: 14 0RF hydrocodone-acetaminophen 5-325 mg tablet 1 tablet PO Q8H PRN (Reason: pain) Qty: 8 0RF Follow-up/Referrals: Chio,Alanna Ramos MD [Primary Care Provider] Stand Alone Forms: Work/School Release IP
[2025-03-15 07:20] VITALS: BP 118/92; PULSE 96; RESP 14; O2SAT 97
== END 2025-03-15 07:24 | disposition home or self-care (01) ==
PROVIDERS: Emergency Provider Emergency Medicine; PCP Family Medicine
DX: K04.7 Periapical abscess without sinus (principal)
CPT/HCPCS: 99283